=== PATIENT | female | born 1970 | race Two or more races ===

== ENCOUNTER → 2022-04-24 | Outpatient (CLI) | payer OTHER ==
[2022-04-24 11:36] LABS: INR 1.04 (0.9-1.15); Partial Thromboplastin Time 29.9 sec (24.6-33.4)
[2022-04-24 11:40] LABS: Basophils % (auto) 0.6 % (0.0-2.0); Hemoglobin 14.2 g/dL (12.2-16.2); Lymphocytes # (auto) 2.5 10 ^3/uL (0.4-5.4); Mean Corpuscular Hgb Conc. 34.3 g/dL (32.0-36.0); Monocytes # (auto) 0.7 10 ^3/uL (0-1.3); Red Blood Cells 4.16 10^6/uL (4.0-5.20)
[2022-04-24 11:42] LABS: Basophils # (auto) 0 10 ^3/uL (0-0.2); Eosinophils # (auto) 0.3 10 ^3/uL (0-0.8); Eosinophils % (auto) 3.1 % (0.0-7.0); Hematocrit 41.4 % (36.0-46.0); Lymphocytes % (auto) 31.2 % (10.0-50.0); Mean Corpuscular Hemoglobin 34.1 pg (28.0-32.0); Mean Corpuscular Volume 99.6 fL (80.0-100.0); Monocytes % (auto) 9.1 % (0.0-12.0); Neutrophils # (auto) 4.5 10 ^3/uL (1.6-8.6); Nucleated Red Blood Cells % 0.1 %; Red Cell Distribution Width 12.7 % (11.8-14.3)
[2022-04-24 11:46] LABS: Magnesium 2.1 mg/dL (1.6-2.6); Potassium 4.4 mmol/L (3.5-5.1)
[2022-04-24 11:55] LABS: Albumin 3.8 g/dL (3.4-5.0); BUN/Creatinine Ratio 21.8 (10.0-20.0); Bilirubin, Direct 0.1 mg/dL (0-0.2); Bilirubin, Total 0.4 mg/dL (0.2-1.0); Calcium 9.1 mg/dL (8.5-10.1); Total Protein 7.5 g/dL (6.4-8.2)
== END | disposition home or self-care (01) ==
LOC: LAB 09:25
PROVIDERS: ATTEND Internal Medicine
DX: I10 Essential (primary) hypertension (principal); E78.5 Hyperlipidemia, unspecified; E11.8 Type 2 diabetes mellitus with unspecified complications; R94.5 Abnormal results of liver function studies; D64.9 Anemia, unspecified; E03.9 Hypothyroidism, unspecified; R79.89 Other specified abnormal findings of blood chemistry; R68.89 Other general symptoms and signs; E61.2 Magnesium deficiency; E78.49 Other hyperlipidemia; R94.6 Abnormal results of thyroid function studies; R82.998 Other abnormal findings in urine; E55.9 Vitamin D deficiency, unspecified; R82.79 Other abnormal findings on microbiological examination of urine; D51.9 Vitamin B12 deficiency anemia, unspecified; R82.90 Unspecified abnormal findings in urine
CPT/HCPCS: 36415; 80053; 80061; 80076; 82150; 82607; 83036; 83735; 83880; 84443; 85025; 85610; 85730

== ENCOUNTER → 2022-09-08 | Outpatient (CLI) | payer OTHER ==
[2022-09-08 08:36] LABS: Urine Bacteria FEW /hpf (None Seen); Urine Blood Negative /uL (Negative); Urine Specific Gravity 1.009 (1.001-1.035); Urine WBC 2 /hpf (0 - 5)
[2022-09-08 08:40] LABS: Basophils # (auto) 0 10 ^3/uL (0-0.2); Basophils % (auto) 0.5 % (0.0-2.0); Eosinophils # (auto) 0.3 10 ^3/uL (0-0.8); Eosinophils % (auto) 4.2 % (0.0-7.0); Hemoglobin 15.4 g/dL (12.2-16.2); Lymphocytes # (auto) 2.2 10 ^3/uL (0.4-5.4); Lymphocytes % (auto) 27.8 % (10.0-50.0); Mean Corpuscular Hemoglobin 33.8 pg (28.0-32.0); Mean Corpuscular Hgb Conc. 34.3 g/dL (32.0-36.0); Mean Corpuscular Volume 98.8 fL (80.0-100.0); Monocytes # (auto) 0.7 10 ^3/uL (0-1.3); Monocytes % (auto) 9.4 % (0.0-12.0); Neutrophils # (auto) 4.6 10 ^3/uL (1.6-8.6); Neutrophils % (auto) 58.1 % (37.0-80.0); Nucleated Red Blood Cells % 0.1 %; Red Blood Cells 4.56 10^6/uL (4.0-5.20); Red Cell Distribution Width 12.8 % (11.8-14.3); White Blood Cell 7.9 10^3/uL (4.4-10.8)
[2022-09-08 09:08] LABS: Folate (Folic Acid) 19.49 ng/mL (5.38-24)
[2022-09-08 09:15] LABS: Potassium 4.7 mmol/L (3.5-5.1)
[2022-09-08 09:23] LABS: Albumin 3.7 g/dL (3.4-5.0); BUN/Creatinine Ratio 14.3 (10.0-20.0); Bilirubin, Direct 0.1 mg/dL (0-0.2); Bilirubin, Total 0.3 mg/dL (0.2-1.0); Total Protein 7.4 g/dL (6.4-8.2)
== END | disposition home or self-care (01) ==
LOC: LAB 08:01
PROVIDERS: ATTEND Specialist
DX: I10 Essential (primary) hypertension (principal); R94.5 Abnormal results of liver function studies; D64.9 Anemia, unspecified; E78.5 Hyperlipidemia, unspecified; E11.8 Type 2 diabetes mellitus with unspecified complications; E03.9 Hypothyroidism, unspecified; E78.41 Elevated Lipoprotein(a); R68.89 Other general symptoms and signs; E61.2 Magnesium deficiency; R94.6 Abnormal results of thyroid function studies; E55.9 Vitamin D deficiency, unspecified; D51.9 Vitamin B12 deficiency anemia, unspecified; R82.991 Hypocitraturia; R82.90 Unspecified abnormal findings in urine; R82.79 Other abnormal findings on microbiological examination of urine
CPT/HCPCS: 36415; 80053; 80061; 80076; 81001; 82306; 82607; 82746; 83036; 83735; 84443; 84550; 85025; 87086

== ENCOUNTER → 2023-01-04 | Outpatient (CLI) | payer OTHER ==
[2023-01-04 08:26] LABS: Basophils # (auto) 0.1 10 ^3/uL (0-0.2); Basophils % (auto) 1.2 % (0.0-2.0); Eosinophils # (auto) 0.3 10 ^3/uL (0-0.8); Eosinophils % (auto) 4.5 % (0.0-7.0); Hematocrit 47.3 % (36.0-46.0); Hemoglobin 16.1 g/dL (12.2-16.2); Lymphocytes # (auto) 2.3 10 ^3/uL (0.4-5.4); Lymphocytes % (auto) 32.8 % (10.0-50.0); Mean Corpuscular Hemoglobin 33.2 pg (28.0-32.0); Mean Corpuscular Hgb Conc. 34.1 g/dL (32.0-36.0); Mean Corpuscular Volume 97.3 fL (80.0-100.0); Monocytes # (auto) 0.6 10 ^3/uL (0-1.3); Monocytes % (auto) 8.3 % (0.0-12.0); Neutrophils # (auto) 3.7 10 ^3/uL (1.6-8.6); Neutrophils % (auto) 53.2 % (37.0-80.0); Nucleated Red Blood Cells % 0.1 %; Red Blood Cells 4.86 10^6/uL (4.0-5.20); Red Cell Distribution Width 13.1 % (11.8-14.3); White Blood Cell 6.9 10^3/uL (4.4-10.8)
[2023-01-04 08:37] LABS: Urine Bacteria FEW /hpf (None Seen); Urine Blood Negative /uL (Negative); Urine Clarity Clear (Clear); Urine Color Yellow (Yellow); Urine Protein, UAD Negative (Negative); Urine Specific Gravity 1.035 (1.001-1.035); Urine Urobilinogen Normal (Negative); Urine WBC 3 /hpf (0 - 5)
[2023-01-04 09:46] LABS: Alanine Aminotransferase 39 U/L (7-40); Albumin 4.6 g/dL (3.2-4.8); Alkaline Phosphatase 153 U/L (46-116); Anion Gap 8 (5-15); Aspartate Aminotransferase 80 U/L (13-40); BUN/Creatinine Ratio 15.5 (10.0-20.0); Bilirubin, Direct 0.3 mg/dL (<0.3); Blood Urea Nitrogen 17 mg/dL (9-23); Calcium 9.7 mg/dL (8.5-10.1); Carbon Dioxide 25 mmol/L (20-30); Chloride 99 mmol/L (98-107); Cholesterol 128 mg/dL (< 200); Glucose 330 mg/dL (74-106); HDL Cholesterol 42 mg/dL (40-59); LDL Cholesterol 38 mg/dL (< 100); Potassium 4.1 mmol/L (3.5-5.1); Sodium 132 mmol/L (136-145); Triglycerides 246 mg/dL (< 150)
[2023-01-04 09:47] LABS: Bilirubin, Total 0.6 mg/dL (0.2-1.0); Total Protein 7.4 g/dL (5.7-8.2)
[2023-01-04 13:43] LABS: Folate (Folic Acid) 12.68 ng/mL (>5.38)
[2023-01-04 13:49] LABS: Uric Acid 2.5 mg/dL (3.1-7.8)
[2023-01-04 13:59] LABS: Magnesium 1.8 mg/dL (1.6-2.6)
== END | disposition home or self-care (01) ==
LOC: LAB 07:57
PROVIDERS: ATTEND Internal Medicine
DX: I10 Essential (primary) hypertension (principal); E78.9 Disorder of lipoprotein metabolism, unspecified; R78.89 Finding of other specified substances, not normally found in blood; M83.9 Adult osteomalacia, unspecified; E11.8 Type 2 diabetes mellitus with unspecified complications; E03.9 Hypothyroidism, unspecified; E78.5 Hyperlipidemia, unspecified; R94.5 Abnormal results of liver function studies; E83.40 Disorders of magnesium metabolism, unspecified
CPT/HCPCS: 36415; 80053; 80061; 80076; 81001; 82306; 82607; 82746; 83036; 83735; 84443; 84550; 85025; 87086

== ENCOUNTER → 2023-01-26 | Outpatient (CLI) | payer OTHER ==
[2023-01-26 08:13] LABS: Basophils # (auto) 0.1 10 ^3/uL (0-0.2); Basophils % (auto) 0.8 % (0.0-2.0); Eosinophils # (auto) 0.2 10 ^3/uL (0-0.8); Eosinophils % (auto) 3.8 % (0.0-7.0); Hematocrit 46.3 % (36.0-46.0); Hemoglobin 16.1 g/dL (12.2-16.2); Lymphocytes # (auto) 2.3 10 ^3/uL (0.4-5.4); Lymphocytes % (auto) 39.3 % (10.0-50.0); Mean Corpuscular Hemoglobin 33.6 pg (28.0-32.0); Mean Corpuscular Hgb Conc. 34.8 g/dL (32.0-36.0); Mean Corpuscular Volume 96.6 fL (80.0-100.0); Monocytes # (auto) 0.5 10 ^3/uL (0-1.3); Monocytes % (auto) 8.5 % (0.0-12.0); Neutrophils # (auto) 2.8 10 ^3/uL (1.6-8.6); Neutrophils % (auto) 47.6 % (37.0-80.0); Nucleated Red Blood Cells % 0.1 %; Red Blood Cells 4.79 10^6/uL (4.0-5.20); Red Cell Distribution Width 12.6 % (11.8-14.3); White Blood Cell 5.9 10^3/uL (4.4-10.8)
[2023-01-26 08:17] LABS: Urine Bacteria FEW /hpf (None Seen); Urine Blood Negative /uL (Negative); Urine Clarity Clear (Clear); Urine Color Colorless (Yellow); Urine Mucus FEW (None Seen); Urine Protein, UAD Negative (Negative); Urine Urobilinogen Normal (Negative); Urine WBC 4 /hpf (0 - 5); Urine pH 6.5 (5.0-8.0)
[2023-01-26 08:35] LABS: Alanine Aminotransferase 36 U/L (7-40); Albumin 4.3 g/dL (3.2-4.8); Alkaline Phosphatase 136 U/L (46-116); Anion Gap 11 (5-15); Aspartate Aminotransferase 70 U/L (13-40); BUN/Creatinine Ratio 9.8 (10.0-20.0); Blood Urea Nitrogen 10 mg/dL (9-23); Calcium 9.4 mg/dL (8.5-10.1); Carbon Dioxide 21 mmol/L (20-30); Chloride 101 mmol/L (98-107); Glucose 387 mg/dL (74-106); LDL Cholesterol 34 mg/dL (< 100); Potassium 4.2 mmol/L (3.5-5.1); Sodium 133 mmol/L (136-145); Triglycerides 286 mg/dL (< 150)
[2023-01-26 08:36] LABS: Bilirubin, Total 0.6 mg/dL (0.2-1.0); Cholesterol 122 mg/dL (< 200); HDL Cholesterol 39 mg/dL (40-59); Total Protein 7.1 g/dL (5.7-8.2)
[2023-01-26 08:47] LABS: Magnesium 1.9 mg/dL (1.6-2.6); Uric Acid 2.6 mg/dL (3.1-7.8)
[2023-01-26 08:58] LABS: Folate (Folic Acid) 16.97 ng/mL (>5.38)
== END | disposition home or self-care (01) ==
LOC: LAB 07:51
PROVIDERS: ATTEND Internal Medicine
DX: E61.2 Magnesium deficiency (principal); E79.0 Hyperuricemia without signs of inflammatory arthritis and tophaceous disease; R94.6 Abnormal results of thyroid function studies; R82.998 Other abnormal findings in urine; E55.9 Vitamin D deficiency, unspecified; R82.79 Other abnormal findings on microbiological examination of urine; D51.9 Vitamin B12 deficiency anemia, unspecified; R78.89 Finding of other specified substances, not normally found in blood; R68.89 Other general symptoms and signs; E78.49 Other hyperlipidemia; R73.09 Other abnormal glucose
CPT/HCPCS: 36415; 80053; 80061; 81001; 82306; 82607; 82746; 83036; 83735; 84443; 84550; 85025; 87086

== ENCOUNTER → 2023-04-04 | Outpatient (CLI) | payer OTHER ==
[2023-04-04 08:04] LABS: Basophils # (auto) 0.1 10 ^3/uL (0-0.2); Basophils % (auto) 0.6 % (0.0-2.0); Eosinophils # (auto) 0.3 10 ^3/uL (0-0.8); Eosinophils % (auto) 3.6 % (0.0-7.0); Hematocrit 46.2 % (36.0-46.0); Hemoglobin 15.6 g/dL (12.2-16.2); Lymphocytes # (auto) 2.8 10 ^3/uL (0.4-5.4); Lymphocytes % (auto) 32.9 % (10.0-50.0); Mean Corpuscular Hemoglobin 33.4 pg (28.0-32.0); Mean Corpuscular Hgb Conc. 33.9 g/dL (32.0-36.0); Mean Corpuscular Volume 98.8 fL (80.0-100.0); Monocytes # (auto) 0.7 10 ^3/uL (0-1.3); Monocytes % (auto) 8.2 % (0.0-12.0); Neutrophils # (auto) 4.6 10 ^3/uL (1.6-8.6); Neutrophils % (auto) 54.7 % (37.0-80.0); Red Blood Cells 4.67 10^6/uL (4.0-5.20); Red Cell Distribution Width 12.6 % (11.8-14.3); Urine Bacteria NONE SEEN /hpf (None Seen); Urine Blood Negative /uL (Negative); Urine Clarity Clear (Clear); Urine Color Colorless (Yellow); Urine Protein, UAD Negative (Negative); Urine Specific Gravity 1.008 (1.001-1.035); Urine Urobilinogen Normal (Negative); Urine WBC 1 /hpf (0 - 5); Urine pH 6.5 (5.0-8.0); White Blood Cell 8.4 10^3/uL (4.4-10.8)
[2023-04-04 08:29] LABS: Alanine Aminotransferase 36 U/L (7-40); Albumin 4.6 g/dL (3.2-4.8); Alkaline Phosphatase 95 U/L (46-116); Anion Gap 5 (5-15); Aspartate Aminotransferase 60 U/L (13-40); BUN/Creatinine Ratio 13.1 (10.0-20.0); Blood Urea Nitrogen 13 mg/dL (9-23); Carbon Dioxide 27 mmol/L (20-30); Chloride 109 mmol/L (98-107); Glucose 106 mg/dL (74-106); LDL Cholesterol 31 mg/dL (< 100); Potassium 4.5 mmol/L (3.5-5.1); Sodium 141 mmol/L (136-145); Triglycerides 124 mg/dL (< 150)
[2023-04-04 08:30] LABS: Bilirubin, Total 0.4 mg/dL (0.2-1.0); Cholesterol 113 mg/dL (< 200); HDL Cholesterol 49 mg/dL (40-59); Total Protein 7.6 g/dL (5.7-8.2)
[2023-04-04 09:12] LABS: Uric Acid 3.6 mg/dL (3.1-7.8)
[2023-04-04 09:14] LABS: Magnesium 1.8 mg/dL (1.6-2.6)
[2023-04-04 09:28] LABS: Folate (Folic Acid) 18.89 ng/mL (>5.38)
== END | disposition home or self-care (01) ==
LOC: LAB 07:42
PROVIDERS: ATTEND Internal Medicine
DX: R78.89 Finding of other specified substances, not normally found in blood (principal); E78.9 Disorder of lipoprotein metabolism, unspecified; R68.89 Other general symptoms and signs; R73.09 Other abnormal glucose; E61.2 Magnesium deficiency; E79.0 Hyperuricemia without signs of inflammatory arthritis and tophaceous disease; R82.90 Unspecified abnormal findings in urine; D51.9 Vitamin B12 deficiency anemia, unspecified; E85.9 Amyloidosis, unspecified
CPT/HCPCS: 36415; 80053; 80061; 81001; 82306; 82607; 82746; 83036; 83735; 84443; 84550; 85025; 87086

== ENCOUNTER → 2023-10-19 | Outpatient (CLI) | payer OTHER ==
[2023-10-19 08:12] LABS: Urine Bacteria None Seen /hpf (None Seen)
[2023-10-19 08:26] LABS: Basophils # (auto) 0 10 ^3/uL (0-0.2); Basophils % (auto) 0.6 % (0.0-2.0); Eosinophils # (auto) 0.3 10 ^3/uL (0-0.8); Eosinophils % (auto) 4.8 % (0.0-7.0); Hemoglobin 14.9 g/dL (12.2-16.2); Lymphocytes # (auto) 2.1 10 ^3/uL (0.4-5.4); Lymphocytes % (auto) 33.6 % (10.0-50.0); Mean Corpuscular Hemoglobin 33.9 pg (28.0-32.0); Mean Corpuscular Hgb Conc. 34.8 g/dL (32.0-36.0); Mean Corpuscular Volume 97.5 fL (80.0-100.0); Monocytes # (auto) 0.6 10 ^3/uL (0-1.3); Monocytes % (auto) 9.7 % (0.0-12.0); Neutrophils # (auto) 3.3 10 ^3/uL (1.6-8.6); Neutrophils % (auto) 51.3 % (37.0-80.0); Nucleated Red Blood Cells % 0.1 %; Platelet Count (auto) 263 10^3/uL (140-450); Red Blood Cells 4.41 10^6/uL (4.0-5.20); White Blood Cell 6.4 10^3/uL (4.4-10.8)
[2023-10-19 08:29] LABS: Urine Blood Negative /uL (Negative); Urine Clarity Clear (Clear); Urine Color Light-Yellow (Yellow); Urine Protein, UAD Negative (Negative); Urine Specific Gravity 1.011 (1.001-1.035); Urine Urobilinogen Normal (Negative); Urine WBC 1 /hpf (0 - 5)
[2023-10-19 08:45] LABS: Alanine Aminotransferase 35 U/L (7-40); Albumin 4.7 g/dL (3.2-4.8); Alkaline Phosphatase 69 U/L (46-116); Anion Gap 5 (5-15); Aspartate Aminotransferase 76 U/L (13-40); BUN/Creatinine Ratio 15.4 (10.0-20.0); Blood Urea Nitrogen 16 mg/dL (9-23); Carbon Dioxide 27 mmol/L (20-30); Chloride 109 mmol/L (98-107); Cholesterol 131 mg/dL (< 200); Glucose 107 mg/dL (74-106); LDL Cholesterol 39 mg/dL (< 100); Magnesium 1.9 mg/dL (1.6-2.6); Potassium 4.5 mmol/L (3.5-5.1); Sodium 141 mmol/L (136-145); Total Protein 7.3 g/dL (5.7-8.2); Triglycerides 179 mg/dL (< 150)
[2023-10-19 08:46] LABS: Bilirubin, Direct 0.2 mg/dL (<0.3); Bilirubin, Total 0.4 mg/dL (0.2-1.0); HDL Cholesterol 47 mg/dL (40-59)
[2023-10-19 09:23] LABS: Uric Acid 3.9 mg/dL (3.1-7.8)
[2023-10-19 10:55] LABS: Folate (Folic Acid) 13.01 ng/mL (>5.38)
== END | disposition home or self-care (01) ==
LOC: LAB 07:53
PROVIDERS: ATTEND Specialist
DX: E11.9 Type 2 diabetes mellitus without complications (principal); I10 Essential (primary) hypertension; E03.9 Hypothyroidism, unspecified; D64.9 Anemia, unspecified; E78.5 Hyperlipidemia, unspecified; R68.89 Other general symptoms and signs; E55.9 Vitamin D deficiency, unspecified; Z68.36 Body mass index [BMI] 36.0-36.9, adult
CPT/HCPCS: 36415; 80053; 80061; 81001; 82248; 82306; 82607; 82746; 83036; 83735; 83880; 84443; 84550; 85025; 87086

== ENCOUNTER → 2023-11-23 | Outpatient (CLI) | payer OTHER | END | disposition home or self-care (01) | LOC: LAB 08:15 | PROVIDERS: ATTEND Internal Medicine | DX: I12.9 Hypertensive chronic kidney disease with stage 1 through stage 4 chronic kidney disease, or unspecified chronic kidney disease (principal); N18.31 Chronic kidney disease, stage 3a; D68.69 Other thrombophilia; I49.9 Cardiac arrhythmia, unspecified; Z95.0 Presence of cardiac pacemaker; R74.8 Abnormal levels of other serum enzymes; I25.10 Atherosclerotic heart disease of native coronary artery without angina pectoris; E11.65 Type 2 diabetes mellitus with hyperglycemia; E55.9 Vitamin D deficiency, unspecified; R82.90 Unspecified abnormal findings in urine | CPT/HCPCS: 82306; 87086 ==

== ENCOUNTER → 2023-11-23 | Outpatient (CLI) | payer OTHER ==
[2023-11-23 10:13] LABS: Basophils # (auto) 0.1 10 ^3/uL (0-0.2); Basophils % (auto) 0.9 % (0.0-2.0); Eosinophils # (auto) 0.4 10 ^3/uL (0-0.8); Eosinophils % (auto) 4.7 % (0.0-7.0); Hematocrit 41.3 % (36.0-46.0); Hemoglobin 14.1 g/dL (12.2-16.2); Lymphocytes # (auto) 2.7 10 ^3/uL (0.4-5.4); Lymphocytes % (auto) 36.2 % (10.0-50.0); Mean Corpuscular Hemoglobin 33.8 pg (28.0-32.0); Mean Corpuscular Hgb Conc. 34.2 g/dL (32.0-36.0); Mean Corpuscular Volume 98.9 fL (80.0-100.0); Monocytes # (auto) 0.7 10 ^3/uL (0-1.3); Monocytes % (auto) 8.8 % (0.0-12.0); Neutrophils # (auto) 3.7 10 ^3/uL (1.6-8.6); Neutrophils % (auto) 49.4 % (37.0-80.0); Nucleated Red Blood Cells % 0.1 %; Platelet Count (auto) 256 10^3/uL (140-450); Red Blood Cells 4.17 10^6/uL (4.0-5.20); Red Cell Distribution Width 13.3 % (11.8-14.3); White Blood Cell 7.5 10^3/uL (4.4-10.8)
[2023-11-23 11:08] LABS: Alanine Aminotransferase 29 U/L (7-40); Albumin 4.3 g/dL (3.2-4.8); Alkaline Phosphatase 72 U/L (46-116); Anion Gap 3 (5-15); Aspartate Aminotransferase 60 U/L (13-40); BUN/Creatinine Ratio 14.3 (10.0-20.0); Bilirubin, Total 0.4 mg/dL (0.2-1.0); Blood Urea Nitrogen 14 mg/dL (9-23); Calcium 9.6 mg/dL (8.7-10.4); Carbon Dioxide 29 mmol/L (20-31); Chloride 110 mmol/L (98-107); Cholesterol 126 mg/dL (< 200); Glucose 99 mg/dL (74-106); HDL Cholesterol 43 mg/dL (40-59); LDL Cholesterol 38 mg/dL (< 100); Potassium 4.6 mmol/L (3.5-5.1); Sodium 142 mmol/L (136-145); Total Protein 6.9 g/dL (5.7-8.2); Triglycerides 213 mg/dL (< 150)
[2023-11-23 11:16] LABS: Folate (Folic Acid) 14.45 ng/mL (>5.38)
[2023-11-23 11:22] LABS: Uric Acid 4.1 mg/dL (3.1-7.8); Urine Bacteria FEW /hpf (None Seen); Urine Blood Negative /uL (Negative); Urine Clarity Clear (Clear); Urine Color Light-Yellow (Yellow); Urine Protein, UAD Negative (Negative); Urine Specific Gravity 1.014 (1.001-1.035); Urine Urobilinogen Normal (Negative); Urine WBC 4 /hpf (0 - 5)
== END | disposition home or self-care (01) ==
LOC: LAB 09:39
PROVIDERS: ATTEND Internal Medicine
DX: E78.49 Other hyperlipidemia (principal); R79.89 Other specified abnormal findings of blood chemistry; R68.89 Other general symptoms and signs; R73.09 Other abnormal glucose; E61.2 Magnesium deficiency; R94.6 Abnormal results of thyroid function studies; E79.0 Hyperuricemia without signs of inflammatory arthritis and tophaceous disease; E55.9 Vitamin D deficiency, unspecified; R82.90 Unspecified abnormal findings in urine; R82.79 Other abnormal findings on microbiological examination of urine
CPT/HCPCS: 36415; 80053; 80061; 81001; 82607; 82746; 83036; 84443; 84550; 85025

== ENCOUNTER → 2023-12-04 | Outpatient (CLI) | payer OTHER ==
--- NOTE | 2023-12-04 13:08 | DVHSR ---
APPROVED REPORT EXAM: Two-dimensional and M-mode echocardiogram with Doppler and color Doppler. INDICATION Dyspnea Surgery/Intervention Pacemaker: RISK FACTORS Obesity: Height: 66, Weight: 232 Diabetes Smoking: DIMENSIONS LVDd (3.8-5.7cm)LA (2D)4.3 (1.9-4.0cm)Aortic Root3.0 (2.0-3.7cm) LVDs (2.5-4.0cm)LA (MM) (1.9-4.0cm)Aortic Cusp Exc1.5 (1.5-2.0cm) EF (%) 49.0 (55-70%)Rt. Atrium3.6 (1.9-4.0cm)Asc. Aorta2.8 cm Mitral Valve MitralMitral Stenosis E wave0.59m/sMV Mean GR.mmHg A wave0.79m/sMV Peak GR.87mmHg E/A ratio0.72D MVAcm2 DECEL [id number] 1/2 Timems Aortic Valve Aortic ValveAortic Stenosis V10.99m/Johann Mean GR.4mmHg V21.29m/Johann Peak GR.7mmHg LVOT Diameter2.1 (1.8-2.4cm)Doppler AVA2.66cm2 Pulmonic Valve V20.85m/s Tricuspid Valve TR Velocity2.47m/s [id number] Conclusion Normal left ventricular size and dimension. Normal left ventricular systolic function estimated ejec tion fraction 55%. There is a grade 1 diastolic dysfunction. Normal right ventricular size and dimension. Normal left ventricular systolic function. The pacemak er lead is seen in the right ventricular cavity. Normal biatrial size and dimension. Normal aortic valve structure and function. Normal mitral valve structure and function. Normal tricuspid valve structure and function. Pulmonary valve is grossly normal. No pericardial effusion.
== END | disposition home or self-care (01) ==
LOC: XYW 09:44
PROVIDERS: ATTEND Specialist
DX: I51.89 Other ill-defined heart diseases (principal); R06.02 Shortness of breath; Z95.810 Presence of automatic (implantable) cardiac defibrillator
CPT/HCPCS: 93306

== ENCOUNTER → 2023-12-10 | Outpatient (CLI) | payer OTHER ==
[2023-12-10 08:21] LABS: Basophils # (auto) 0 10 ^3/uL (0-0.2); Basophils % (auto) 0.7 % (0.0-2.0); Eosinophils # (auto) 0.3 10 ^3/uL (0-0.8); Hematocrit 42.1 % (36.0-46.0); Hemoglobin 14.2 g/dL (12.2-16.2); Lymphocytes # (auto) 2.2 10 ^3/uL (0.4-5.4); Lymphocytes % (auto) 39.2 % (10.0-50.0); Mean Corpuscular Hemoglobin 33.7 pg (28.0-32.0); Mean Corpuscular Hgb Conc. 33.8 g/dL (32.0-36.0); Mean Corpuscular Volume 99.6 fL (80.0-100.0); Monocytes # (auto) 0.4 10 ^3/uL (0-1.3); Monocytes % (auto) 7.6 % (0.0-12.0); Neutrophils # (auto) 2.6 10 ^3/uL (1.6-8.6); Neutrophils % (auto) 46.5 % (37.0-80.0); Nucleated Red Blood Cells % 0.1 %; Platelet Count (auto) 252 10^3/uL (140-450); Red Blood Cells 4.22 10^6/uL (4.0-5.20); Red Cell Distribution Width 13.5 % (11.8-14.3); White Blood Cell 5.6 10^3/uL (4.4-10.8)
[2023-12-10 09:36] LABS: Alanine Aminotransferase 33 U/L (7-40); Albumin 4.2 g/dL (3.2-4.8); Alkaline Phosphatase 79 U/L (46-116); Anion Gap 5 (5-15); Aspartate Aminotransferase 63 U/L (13-40); BUN/Creatinine Ratio 17.3 (10.0-20.0); Blood Urea Nitrogen 18 mg/dL (9-23); Calcium 9.6 mg/dL (8.7-10.4); Carbon Dioxide 28 mmol/L (20-31); Chloride 108 mmol/L (98-107); Glucose 164 mg/dL (74-106); LDL Cholesterol 28 mg/dL (< 100); Magnesium 1.9 mg/dL (1.6-2.6); Potassium 4.5 mmol/L (3.5-5.1); Sodium 141 mmol/L (136-145); Triglycerides 161 mg/dL (< 150)
[2023-12-10 09:37] LABS: Bilirubin, Total 0.3 mg/dL (0.2-1.0); Cholesterol 112 mg/dL (< 200); HDL Cholesterol 48 mg/dL (40-59); Total Protein 6.9 g/dL (5.7-8.2)
[2023-12-10 10:21] LABS: Uric Acid 3.8 mg/dL (3.1-7.8)
[2023-12-10 10:54] LABS: Folate (Folic Acid) 16.18 ng/mL (>5.38)
== END | disposition home or self-care (01) ==
LOC: LAB 07:46
PROVIDERS: ATTEND Internal Medicine
DX: I10 Essential (primary) hypertension (principal); R10.30 Lower abdominal pain, unspecified; E55.9 Vitamin D deficiency, unspecified; R74.8 Abnormal levels of other serum enzymes
CPT/HCPCS: 36415; 80053; 80061; 82306; 82607; 82746; 83036; 83735; 84443; 84550; 85025

== ENCOUNTER → 2024-01-22 | Outpatient (CLI) | payer OTHER ==
[~2024-01-22] VITALS: Ht 167.6 cm; Wt 105.2 kg
[2024-01-22] MEDS: REGADENOSON 0.4 MG/5 ML SYRG IV ONE ×2 (08:15→09:19)
--- NOTE | 2024-01-22 14:26 | DVHSR ---
APPROVED REPORT Exam: Nuclear Stress Test Indication: CHF BMI: 0 Medical History Medical History: CHF, HTN, CURRENT SMOKER Stress Test Details Stress Test: Pharmacologic stress testing performed using 0.4 mg of regadenoson per 5 mL given IV ov er 10 seconds. HR Resting HR: 76 bpmMax Heart Rate (APMHR): 168.855511 bpm Max HR Achieved: 109 bpmTarget HR (85% APMHR): 142.088127 bpm % of APMHR: 64.88 Recovery HR: 99 bpm BP Resting BP: 136/77 mmHg Recovery BP: 136/80 mmHg ECG Resting ECG: SEE BASELINE Clinical Reason for Termination: Completed protocol Stress ECG Conclusion ECG shows wide QRS complex with a ventricularly paced rhythm. No dynamic EKG changes was noted as EK G is nondiagnostic. Resting images shows mildly reduced uptake of radioactive tracer through the anterior and anterosepta l wall this could be related to underlying conduction abnormalities due to pacing. Stress images still shows the same area of the anterior anteroseptal wall reduced radioactive uptake which is in keeping with either ischemia versus artifact due to conduction abnormality. Mildly reduced left ventricular systolic function 47%. Impression: Anterior anteroseptal wall defect seen both on resting and stress images which could be related to pacing and conduction abnormality, mildly reduced left ventricular systolic function at 47 %, low risk study. NM EXAM: Myocardial Perfusion REST/STRESS Imaging Protocol: Rest Tc-99m/Stress Tc-99m 1 day Resting Data Rest SPECT myocardial perfusion imaging was performed in supine position 60 minutes following the int ravenous injection of 16 mCi of Tc-99m Sestamibi. Time of rest injection: 0810 Time of rest imagin Administration Route: IV Administration Site: Right Hand Pharmacologic Stress Pharmacologic stress test was performed by injecting Regadenoson 0.4 mg IV push followed by the intra venous injection of 33 mCi of Tc-99m Sestamibi. Time of stress injection: 09 Time of stress imagin Administration Route: IV Administration Site: Right Hand Gated Stress SPECT was performed 60 minutes after stress injection. The images were gated to evaluate regional wall motion and calculate left ventricular ejection fracti on. Stress only was performed in the Supine position. Nuclear Conclusion ECG Findings: non-diagnostic Clinical Findings: negative for ischemia Nuclear Findings: equivocal Exercise Capacity: not assessed Left Ventricular Function: abnormal Risk Study: moderate ECG shows wide QRS complex with a ventricularly paced rhythm. No dynamic EKG changes was noted as EK G is nondiagnostic. Resting images shows mildly reduced uptake of radioactive tracer through the anterior and anterosepta l wall this could be related to underlying conduction abnormalities due to pacing. Stress images still shows the same area of the anterior anteroseptal wall reduced radioactive uptake which is in keeping with either ischemia versus artifact due to conduction abnormality. Mildly reduced left ventricular systolic function 47%. Impression: Anterior anteroseptal wall defect seen both on resting and stress images which could be related to pacing and conduction abnormality, mildly reduced left ventricular systolic function at 47 %, low risk study.
== END | disposition home or self-care (01) ==
LOC: XYW 07:50
PROVIDERS: ATTEND Specialist
DX: I11.0 Hypertensive heart disease with heart failure (principal); I50.9 Heart failure, unspecified; Z87.891 Personal history of nicotine dependence
CPT/HCPCS: 78452; 93017; A9500; J2785

== ENCOUNTER → 2024-03-10 | Outpatient (CLI) | payer OTHER ==
[2024-03-10 08:42] LABS: Basophils # (auto) 0 10 ^3/uL (0-0.2); Basophils % (auto) 0.2 % (0.0-2.0); Eosinophils # (auto) 0.1 10 ^3/uL (0-0.8); Eosinophils % (auto) 0.8 % (0.0-7.0); Hematocrit 41.1 % (36.0-46.0); Hemoglobin 13.7 g/dL (12.2-16.2); Lymphocytes # (auto) 2.6 10 ^3/uL (0.4-5.4); Lymphocytes % (auto) 23.1 % (10.0-50.0); Mean Corpuscular Hemoglobin 32.9 pg (28.0-32.0); Mean Corpuscular Hgb Conc. 33.3 g/dL (32.0-36.0); Mean Corpuscular Volume 98.8 fL (80.0-100.0); Monocytes # (auto) 0.8 10 ^3/uL (0-1.3); Monocytes % (auto) 7.4 % (0.0-12.0); Neutrophils # (auto) 7.8 10 ^3/uL (1.6-8.6); Neutrophils % (auto) 68.5 % (37.0-80.0); Platelet Count (auto) 410 10^3/uL (140-450); Red Blood Cells 4.16 10^6/uL (4.0-5.20); Red Cell Distribution Width 12.6 % (11.8-14.3); White Blood Cell 11.3 10^3/uL (4.4-10.8)
[2024-03-10 09:40] LABS: Alanine Aminotransferase 17 U/L (7-40); Albumin 4.3 g/dL (3.2-4.8); Alkaline Phosphatase 98 U/L (46-116); Anion Gap 8 (5-15); BUN/Creatinine Ratio 22.9 (10.0-20.0); Bilirubin, Total 0.3 mg/dL (0.2-1.0); Calcium 9.7 mg/dL (8.7-10.4); Carbon Dioxide 27 mmol/L (20-31); Cholesterol 75 mg/dL (< 200); Glucose 98 mg/dL (74-106); HDL Cholesterol 45 mg/dL (40-59); LDL Cholesterol 13 mg/dL (< 100); Potassium 3.6 mmol/L (3.5-5.1); Sodium 143 mmol/L (136-145); Total Protein 7.2 g/dL (5.7-8.2); Triglycerides 64 mg/dL (< 150)
[2024-03-10 09:51] LABS: Aspartate Aminotransferase 48 U/L (13-40); Blood Urea Nitrogen 25 mg/dL (9-23); Chloride 108 mmol/L (98-107)
[2024-03-10 10:45] LABS: Uric Acid 4.4 mg/dL (3.1-7.8)
[2024-03-10 11:32] LABS: Folate (Folic Acid) 8.1 ng/mL (>5.38)
== END | disposition home or self-care (01) ==
LOC: LAB 07:09
PROVIDERS: ATTEND Internal Medicine
DX: I11.0 Hypertensive heart disease with heart failure (principal); I50.22 Chronic systolic (congestive) heart failure; M51.9 Unspecified thoracic, thoracolumbar and lumbosacral intervertebral disc disorder; F33.0 Major depressive disorder, recurrent, mild
CPT/HCPCS: 36415; 80053; 80061; 82306; 82607; 82746; 83036; 83735; 84443; 84550; 85025; 87086; 87088; 87186

== ENCOUNTER 2024-03-19 18:32 | Inpatient (IN) | payer OTHER ==
[~2024-03-19] VITALS: Ht 167.6 cm; Wt 63.5 kg
--- NOTE | 2024-03-19 18:51 | ED.PDOC ---
SOB-HPI HPI Comments 53y F who presents to the ED for chief complaint of shortness of breath. Pt states she has been having shortness of breath for the past 3 weeks. Pt states she has been having cough, congestion getting progressively worse. Pt states she recently went to urgent care and states he was placed on antibiotic and sent home. Pt states she saw PCP recently and states she was placed on another antibiotic. Pt states earlier today, she started to have increased shortness of breath and came to the ED for further evaluation. Pt in the ED, had vitals checked with 02 sat of 77% on air and was placed on 02. Pt denies any recent sick contacts. Pt otherwise denies any other symptoms at this time. 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 Family History Family History: Reviewed,noncontributory to illness Social History Smoker: Non-Smoker Alcohol: Denies ETOH Use Drugs: Denies Drug Use Lives In: Home Constitutional: denies: chills, diaphoresis, fatigue, fever, malaise, sweats, weakness, others EENTM: reports: nose congestion; denies: blurred vision, double vision, ear bleeding, ear discharge, ear drainage, ear pain, ear ringing, eye pain, eye redness, hearing loss, mouth pain, mouth swelling, nasal discharge, nose bleeding, nose pain, photophobia, tearing, throat pain, throat swelling, voice changes, others Respiratory: reports: cough, shortness of breath; denies: hemoptysis, orthopnea, SOB at rest, SOB with excertion, stridor, wheezing, others Cardiovascular: denies: chest pain, dizzy spells, diaphoresis, Dyspnea on exertion, edema, irregular heart beat, left arm pain, lightheadedness, palpitations, PND, syncope, others Gastrointestinal: denies: abdomen distended, abdominal pain, blood streaked bowels, constipated, diarrhea, dysphagia, difficulty swallowing, hematemesis, melena, nausea, poor appetite, poor fluid intake, rectal bleeding, rectal pain, vomiting, others Genitourinary: denies: abnormal vagina bleeding, burning, dyspareunia, dysuria, flank pain, frequency, hematuria, incontinence, pain, , vagina dis charge, urgency, others Neurological: denies: dizziness, fainting, headache, left sided numbness, left sided weakness, numbness, paresthesia, pre-existing deficit, right sided numbness, right sided weakness, seizure, speech problems, tingling, tremors, weakness, others Musculoskeletal: denies: back pain, gout, joint pain, joint swelling, muscle pain, muscle stiffness, neck pain, others Integumetry: denies: bruises, change in color, change in hair/nails, dryness, laceration, lesions, lumps, rash, wounds, others Allergic/Immunocompromised: denies: Difficulty Healing, Frequent Infections, Hives, Itching, others Hematologic/Lymphatic: denies: anemia, blood clots, easy bleeding, easy bruising, swollen glands, others Endocrine: denies: excessive hunger, excessive sweating, excessive thirst, excessive urination, flushing, intolerance to cold, intolerance to heat, unexplained weight gain, unexplained weight loss, others Psychiatric: denies: anxiety, bipolar disorder, depression, hopeless, panic disorder, schizophrenia, sleepless, suicidal, others All Other Systems: Reviewed and Negative Physical Exam General Appearance: Moderate Distress HEENT: Normal ENT Inspection, Pharynx Normal, TMs Normal Neck: Full Range of Motion, Non-Tender, Normal, Normal Inspection Respiratory: Rales (b/l lungs), Rhonchi (b/l lungs) Cardiovascular: No Edema, No JVD, No Murmur, No Gallop, Normal Peripheral Pulses, Regular Rate/Rhythm Breast Exam: Deferred Gastrointestinal: No Organomegaly, Non Tender, No Pulsatile Mass, Normal Bowel Sounds, Soft Genitalia: Deferred Pelvic: Deferred Rectal: Deferred Extremities: No calf tenderness, Normal capillary refill, Normal inspection, Normal range of motion, Non-tender, No pedal edema Musculoskeletal : Apperance: Normal Neurologic: Alert, screen machine operator II-XII nml as Tested, No Motor Deficits, Normal Affect, Normal Mood, No Sensory Deficits Cerebellar Function: Normal Reflexes: Normal Skin: Dry, Normal Color, Warm Lymphatic: No Adenopathy Was a procedure done? Was a procedure done?: No Differential Dx Differential Diagnosis: Bronchitis, CHF, COPD, Pneumonia, Pulmonary Embolism, Respiratory Distress Comments COVID, Influenza A and B, X-Ray, Labs, Meds, VS Vital Signs Date Time Temp Pulse Resp B/P (MAP) Pulse Ox O2 Delivery O2 Flow Rate FiO2 03/19/24 18:42 113 03/19/24 18:41 20 91 Nasal Cannula 6.0 03/19/24 18:41 99.0 116 20 135/68 (90) 75 Lab Test 03/19/24 19:08 Range/Units White Blood Count 19.1 H 4.4-10.8 10^3/uL Red Blood Count 4.08 4.0-5.20 10^6/uL Hemoglobin 13.5 12.2-16.2 g/dL Hematocrit 39.8 36.0-46.0 % Mean Corpuscular Volume 97.5 80.0-100.0 fL Mean Corpuscular Hemoglobin 33.0 H 28.0-32.0 pg Mean Corpuscular Hemoglobin Concent 33.9 32.0-36.0 g/dL Red Cell Distribution Width 12.7 11.8-14.3 % Platelet Count 365 140-450 10^3/uL Mean Platelet Volume 7.6 6.9-10.8 fL Neutrophils (%) (Auto) 37.0-80.0 % Lymphocytes (%) (Auto) 10.0-50.0 % Monocytes (%) (Auto) 0.0-12.0 % Basophils (%) (Auto) 0.0-2.0 % Neutrophils # (Auto) 1.6-8.6 10 ^3/uL Lymphocytes # (Auto) 0.4-5.4 10 ^3/uL Monocytes # (Auto) 0-1.3 10 ^3/uL Differential Total Cells Counted Pending Neutrophils % (Manual) Pending Band Neutrophils % (Manual) Pending Lymphocytes % (Manual) Pending Monocytes % (Manual) Pending Eosinophils % (Manual) Pending Basophils % (Manual) Pending Metamyelocytes % (manual) Pending Myelocytes % (Manual) Pending Promyelocytes % (Manual) Pending Blast Cells % (Manual) Pending Reactive Lymphocytes Pending Platelet Estimate Pending Sodium Level 138 136-145 mmol/L Potassium Level 4.3 3.5-5.1 mmol/L Chloride Level 107 98-107 mmol/L Carbon Dioxide Level 24 20-31 mmol/L Anion Gap 7 5-15 Blood Urea Nitrogen 13 9-23 mg/dL Creatinine 0.94 0.550-1.02 mg/dL Glomerular Filtration Rate Calc 73 >90 mL/min BUN/Creatinine Ratio 13.8 10.0-20.0 Serum Glucose 123 H 74-106 mg/dL Calcium Level 10.0 8.7-10.4 mg/dL Total Bilirubin 0.6 0.2-1.0 mg/dL Aspartate Amino Transferase (AST) 57 H 13-40 U/L Alanine Aminotransferase (ALT) 16 7-40 U/L Alkaline Phosphatase 114 46-116 U/L Troponin I High Sensitivity 7 </=34 ng/L B-Type Natriuretic Peptide 96.47 0-100 pg/mL Total Protein 7.1 5.7-8.2 g/dL Albumin 4.3 3.2-4.8 g/dL X-Ray, Labs, Meds, VS Comment X-ray shows pneumonia with elevated white count Patient will be admitted for pneumonia, failed outpatient treatment Patient was still hypoxic with tachypnea. Patient will be on 15 L non-rebreathe r O2 sat at 92%. Rocephin and azithromycin to be initiated DuoNeb treatment to be initiated Time of 1ST Reevaluation: 19:20 Reevaluation 1ST: Unchanged Patient Education/Counseling: Diagnosis, Treatment Family Education/Counseling: Diagnosis, Treatment Departure 1 Departure Time of Disposition: 19:46 Impression: Primary Impression: Pneumonia Qualified Codes: J18.9 - Pneumonia, unspecified organism Additional Impression: Hypoxia Disposition: ADMITTED INPATIENT Condition: Fair Critical Care Note Critical Care Time?: No Stability Stability form required: No Heart Score Heart Score: Heart Score Response (Comments) Value History Slightly Suspicious 0 EKG Normal 0 Age 45-64 1 Risk Factors 1 or 2 risk factors 1 Troponin Normal limit 0 Total 2 I personally scribed for ANASTASIA CHACON ([email or web address]) on 03/19/24 at 18:51. Electronically submitted by Genoveva COBOS). ANASTASIA CHACON Mar 19, 2024 18:51
[2024-03-19 19:21] LABS: Hematocrit 39.8 % (36.0-46.0); Hemoglobin 13.5 g/dL (12.2-16.2); Mean Corpuscular Hgb Conc. 33.9 g/dL (32.0-36.0); Mean Corpuscular Volume 97.5 fL (80.0-100.0); Platelet Count (auto) 365 10^3/uL (140-450); Red Blood Cells 4.08 10^6/uL (4.0-5.20); Red Cell Distribution Width 12.7 % (11.8-14.3); White Blood Cell 19.1 10^3/uL (4.4-10.8)
[2024-03-19 19:23] LABS: Basophils % (manual) 0 (0.0-2.0); Blast Cells 0; Metamyelocytes % 0; Myelocytes % 0; Promyelocytes % 0; Reactive Lymphocytes 0
[2024-03-19 19:38] LABS: Alanine Aminotransferase 16 U/L (7-40); Albumin 4.3 g/dL (3.2-4.8); Alkaline Phosphatase 114 U/L (46-116); Anion Gap 7 (5-15); BUN/Creatinine Ratio 13.8 (10.0-20.0); Bilirubin, Total 0.6 mg/dL (0.2-1.0); Blood Urea Nitrogen 13 mg/dL (9-23); Carbon Dioxide 24 mmol/L (20-31); Chloride 107 mmol/L (98-107); Potassium 4.3 mmol/L (3.5-5.1); Sodium 138 mmol/L (136-145); Total Protein 7.1 g/dL (5.7-8.2)
--- NOTE | 2024-03-19 19:39 | DVH ---
CHEST RADIOGRAPH Indication: sob Technique: Single frontal view of the chest was obtained Comparison: None FINDINGS: Lines and Tubes: Anterior fusion lower cervical spine. Pulse generator over place. Lungs: Mildly prominent pulmonary vascular markings. Pleura: No effusion. No pneumothorax. Cardiomediastinal contours: Cardiac size appears enlarged Bones: No acute osseous abnormality. IMPRESSION: 1. Findings may represent congestive failure or pneumonia. HS:Y
[2024-03-19 19:40] LABS: Aspartate Aminotransferase 57 U/L (13-40); Glucose 123 mg/dL (74-106)
[2024-03-19 19:51] LABS: Band Neutrophils % (manual) 1; Eosinophils % (manual) 1 (0-7); Lymphocytes % (manual) 18 (10.0-50.0); Monocytes % (manual) 5 (0-12); Platelet Estimate Adequate
[2024-03-19 19:55] VITALS: PULSE 108; RESP 18; O2SAT 94
[2024-03-19] MEDS: IPRATROPIUM BROM 0.5 MG/2.5ML INH SOL NEB ONE (20:00)
[2024-03-19] MEDS: ALBUTEROL SULF 2.5 MG/0.5ML(0.5%) NEB SOLN NEB ONE (20:00)
[2024-03-19] MEDS: cefTRIAXone 1GM/50ML D5W 50 ML IV ONE (20:16)
[2024-03-19] MEDS: AZITHROMYCIN 500MG/ 250ML 250 ML IV ONE (20:32)
[2024-03-19 21:13] LABS: LDL Cholesterol 23 mg/dL (< 100); Triglycerides 85 mg/dL (< 150)
[2024-03-19 21:15] LABS: Cholesterol 85 mg/dL (< 200)
[2024-03-19] MEDS: FUROSEMIDE 40 MG/4 ML VIAL IV SCH (21:15)
[2024-03-19 21:19] LABS: HDL Cholesterol 40 mg/dL (40-59)
[2024-03-19] MEDS ORDERED: DEXTROSE (50%) 50ML SYRG IV PRN (21:30)
[2024-03-19] MEDS: InsuLIN REG 1unit/0.01ml Soln (100units/ml) SC SCH (22:00)
[2024-03-19] MEDS: SACUBITRIL-VALSARTAN 24mg/26mg TAB PO SCH (22:00)
[2024-03-19 23:36] LABS: Urine Bacteria None Seen /hpf (None Seen)
[2024-03-19 23:44] VITALS: BP 100/46; PULSE 100; RESP 22; O2SAT 95
[2024-03-19 23:59] LABS: Amphetamine Screen, Urine Neg (NEGATIVE); Benzodiazephine Screen, Urine Neg (NEGATIVE); Opiate Scree,Urine Neg (NEGATIVE); Phencyclidine Screen, Urine Neg (NEGATIVE)
[2024-03-20] VITALS (14 sets, daily range): BP systolic 99–125; BP diastolic 43–65; PULSE 73–104; RESP 12–23; TEMP 98.1–99.1; O2SAT 88–99
[2024-03-20] LABS: Barbiturate Scree,Urine Neg (NEGATIVE); Cannabinoid Screen, Urine Neg (NEGATIVE); Cocaine Screen, Urine Neg (NEGATIVE)
[2024-03-20] MEDS: ACCU-CHEK COMFORT CURVE STRIP VI SCH (00:06)
[2024-03-20 00:20] LABS: Urine Blood Negative /uL (Negative); Urine Clarity Clear (Clear); Urine Color Yellow (Yellow); Urine Protein, UAD TRACE (Negative); Urine Specific Gravity 1.022 (1.001-1.035); Urine Squamous Epithelial Cell FEW /hpf (<5); Urine Urobilinogen 4 mg/dL (Negative); Urine WBC 9 /HPF (0-5)
--- NOTE | 2024-03-20 00:35 | DVHHPRES ---
History of Present Illness Resident Creating Document: POOJA LYNN RESIDENT History of Present Illness This is a 53-year-old female with past medical history of CHF, type 2 diabetes, dyslipidemia, anxiety, depression, pacemaker placed in 2019. The patient presented to the ED due to shortness of breath. The patient states has been feeling lightheadedness associated with shortness of breaths for the past three weeks associated with dry cough without sputum production. The patient also mentioned minimal chest discomfort due to chronic cough but denied fever/chills, abdominal pain or any other additional concerns. The patient also reported that she went to the urgent care in the past weekend and was prescribed corticosteroids and sent home. The patient stated that before coming to the ED she was saturating 81% at home and her symptoms worsened prompting this visit. Initial labs showed a WBC of 19.1, BNP was grossly unremarkable, troponins came back negative and BNP was normal range at 96.47. Initial chest x-ray showing mild vascular congestion. My examination, the patient was on 15 L of oxygen through a non-rebreather mask saturating 95%. The patient was having 1+ bilateral pedal edema and very mild crackles on lung bases but rest of lung beach were grossly clean. We will order D-dimer since the patient is having sh ortness of breath and tachycardia. We will admit the patient for further assessment and management of possible pneumonia and possible CHF exacerbation. Past surgical history: Three fusions of the cervical vertebra, to fusion of the lumbar vertebra. -cholecystectomy 20 years ago -appendectomy when patient was a child -bilateral breast reduction -pacemaker placed in 2020 Home Medications: Ozempic 1 mg once a week, pravastatin 40 mg daily, fenofibrate 124 mg daily, Entresto 24-26 mg one tab b.i.d., carvedilol 25 mg daily, fluoxetine 60 mg daily. Patient stated that her emergency planner Dr. Wiley Cardiovascular: CHF, HTN, hyperipidemia Psych: Anxiety, Depression Past Surgical History: Appendectomy, Cholecystectomy Family History: None Smoke: <1 pack per day ALCOHOL: none Drugs: None Lives: with Family Domestic Violence: Neg Review of Systems Constitutional: No: Fever, Chills, Sweats, Weakness, Malaise, Other Eyes: No: Pain, Vision change, Conjunctivae inflammation, Eyelid inflammation, Other, Redness ENT: No: Ear pain, Ear discharge, Nose pain, Nose discharge, Nose congestion, Mouth pain, Mouth swelling, Throat pain, Throat swelling, Other Respiratory: Cough, Dry, Shortness of breath, SOB with excertion; No: Wheezing, Hemoptysis, Pleuritic Pain, Sputum, Wheezing, Other Cardiovascular: No: Chest Pain, Palpitations, Orthopnea, Paroxysmal Noc. Dyspnea, Edema, Lt Headedness, Other Gastrointestinal: No: Nausea, Vomiting, Abdominal Pain, Diarrhea, Constipation, Melena, Hematochezia, Other Genitourinary: No Dysuria, No Frequency, No Incontinence, No Hematuria, No Retention, No Other Musculoskeletal: No: other, neck pain, shoulder pain, arm pain, back pain, hand pain, leg pain, foot pain Skin: No: Rash, Lesions, Jaundice, Bruising, Other Neurological: No: Weakness, Numbness, Incoordination, Change in speech, Confusion, Seizures, Other Allergies: Uncoded Allergies: ADHESIVE (Allergy, Mild, 03/20/24) Medications Current Medications Medications Dose Ordered Sig/Thomas Route Start Time Stop Time Status Last Admin Dose Admin Acetaminophen 650 mg Q6HP PRN PO 03/19/24 21:00 Furosemide 40 mg DAILY IV 03/19/24 21:15 Atorvastatin Calcium 40 mg DAILY PO 03/20/24 10:00 Fluoxetine HCl 60 mg DAILY PO 03/20/24 10:00 Sacubitril/ Valsartan 1 tab BID PO 03/19/24 22:00 Diagnostic Test (Pha) 1 strip ACHS 03/19/24 22:00 03/20/24 00:06 1 STRIP Insulin Human Regular ACHS SC 03/19/24 22:00 Dextrose 50 ml UD PRN IV 03/19/24 21:30 Azithromycin 250 ml @ 125 mls/hr DAILY IV 03/20/24 10:00 Ceftriaxone Sodium 50 ml @ 100 mls/hr DAILY IV 03/20/24 10:00 Exam Vital Signs Vital Signs Date Time Temp Pulse Resp B/P (MAP) Pulse Ox O2 Delivery O2 Flow Rate FiO2 03/19/24 23:44 100 22 95 40.0 55 03/19/24 23:31 100/45 (63) 03/19/24 20:50 99.1 99.1 03/19/24 19:55 Nasal Cannula* Non-Rebreather General Appearance: Alert, Oriented X3, Cooperative, mild distress HEENT: Atraumatic, PERRLA, EOMI, Mucous membr. moist/pink Respiratory: Normal air movement, Other (Patient is having mild bilateral crackles on lung bases but rest of lung beach are clear) Cardiovascular: Regular rate, Normal S1, Normal S2, No murmurs Abdominal: Normal bowel sounds, Soft, No tenderness, No hepatospenomegaly, No masses Extremities: No clubbing, No cyanosis, Normal pulses, Other (There was bilateral lower extremity 1+ pitting edema) Skin: No rashes, No breakdown, No significant lesion Neuro: Normal gait, Normal speech, Strength at 5/5 X4 ext, Normal tone, Sensation intact, Cranial nerves 3-12 NL, Reflexes 2+ Psych/Mental Status: Mental status NL, Mood NL Labs/Xrays Labs Test 03/19/24 23:52 03/19/24 23:00 03/19/24 20:07 03/19/24 19:08 Range/Units POC Glucose 149 H 70-106 mg/dl Urine Opiates Screen Neg NEGATIVE Urine Fentanyl Screen Neg NEGATIVE Urine Barbiturates Screen Neg NEGATIVE Urine Phencyclidine Screen Neg NEGATIVE Urine Amphetamines Screen Neg NEGATIVE Urine Benzodiazepines Screen Neg NEGATIVE Urine Cocaine Screen Neg NEGATIVE Urine Cannabinoids Screen Neg NEGATIVE Troponin I High Sensitivity 7 </=34 ng/L White Blood Count 19.1 H 4.4-10.8 10^3/uL Red Blood Count 4.08 4.0-5.20 10^6/uL Hemoglobin 13.5 12.2-16.2 g/dL Hematocrit 39.8 36.0-46.0 % Mean Corpuscular Volume 97.5 80.0-100.0 fL Mean Corpuscular Hemoglobin 33.0 H 28.0-32.0 pg Mean Corpuscular Hemoglobin Concent 33.9 32.0-36.0 g/dL Red Cell Distribution Width 12.7 11.8-14.3 % Platelet Count 365 140-450 10^3/uL Mean Platelet Volume 7.6 6.9-10.8 fL Neutrophils (%) (Auto) 37.0-80.0 % Lymphocytes (%) (Auto) 10.0-50.0 % Monocytes (%) (Auto) 0.0-12.0 % Basophils (%) (Auto) 0.0-2.0 % Neutrophils # (Auto) 1.6-8.6 10 ^3/uL Lymphocytes # (Auto) 0.4-5.4 10 ^3/uL Monocytes # (Auto) 0-1.3 10 ^3/uL Differential Total Cells Counted 100.0 100 Neutrophils % (Manual) 75 37.0-80.0 Band Neutrophils % (Manual) 1 Lymphocytes % (Manual) 18 10.0-50.0 Monocytes % (Manual) 5 0-12 Eosinophils % (Manual) 1 0-7 Basophils % (Manual) 0 0.0-2.0 Metamyelocytes % (manual) 0 Myelocytes % (Manual) 0 Promyelocytes % (Manual) 0 Blast Cells % (Manual) 0 Reactive Lymphocytes 0 Platelet Estimate Adequate Sodium Level 138 136-145 mmol/L Potassium Level 4.3 3.5-5.1 mmol/L Chloride Level 107 98-107 mmol/L Carbon Dioxide Level 24 20-31 mmol/L Anion Gap 7 5-15 Blood Urea Nitrogen 13 9-23 mg/dL Creatinine 0.94 0.550-1.02 mg/dL Glomerular Filtration Rate Calc 73 >90 mL/min BUN/Creatinine Ratio 13.8 10.0-20.0 Serum Glucose 123 H 74-106 mg/dL Hemoglobin A1c 5.9 H <5.7 % A1C Calcium Level 10.0 8.7-10.4 mg/dL Total Bilirubin 0.6 0.2-1.0 mg/dL Aspartate Amino Transferase (AST) 57 H 13-40 U/L Alanine Aminotransferase (ALT) 16 7-40 U/L Alkaline Phosphatase 114 46-116 U/L B-Type Natriuretic Peptide 96.47 0-100 pg/mL Total Protein 7.1 5.7-8.2 g/dL Albumin 4.3 3.2-4.8 g/dL Triglycerides Level 85 < 150 mg/dL Cholesterol Level 85 < 200 mg/dL LDL Cholesterol 23 < 100 mg/dL HDL Cholesterol 40 40-59 mg/dL Assessment/Plan Assessment/Plan Assessment/plan Acute hypoxic respiratory failure likely due to Gram-positive/Gram-negative bacterial pneumonia/typical pneumonia R/O pulmonary embolism -currently on 15 L of oxygen through non-rebreather mask saturating 95% -initial chest x-ray showing mild pulmonary vascular congestion but pneumonia can not be ruled out -initial WBC is 19.1 -Order D-dimer -start IV azithromycin -start IV ceftriaxone -ordered sputum culture -further MRSA screen -ordered COVID test -ordered influenza a and B -monitor oxygen saturation -order ABG Possible acute on chronic systolic/diastolic heart failure exacerbation -ordered echocardiogram -BNP was 96.47 -patient had bilateral 1+ pitting edema -troponins were negative -start furosemide 40 mg IV daily -start Entresto one tab b.i.d. -hold carvedilol at this time due to low blood pressure. Consider resuming once pedal edema start improving blood pressure allows. Type 2 diabetes mellitus -ordered hemoglobin A1c -start mild sliding scale insulin Dyslipidemia -order lipid panel -start atorvastatin 40 mg daily History of anxiety and depression -resume home fluoxetine 60 mg daily History of pacemaker placement on 2019 -Cardiology is Dr. Wiley Goals of care discussed with the patient and at bedside for >25min, FULL CODE Plan discussed with Dr. Bright Plan discussed with: Patient My Orders Orders - POOJA LYNN RESIDENT Procedure Category Date Status Time Admit ADMIT 03/19/24 Transmitted 20:46 Code Status CODE 03/19/24 Transmitted 20:46 Vital Signs KAMILA 03/19/24 In Process 20:46 Review Orders With KAMILA 03/19/24 In Process Adm. 20:46 Encourage Activity As KAMILA 03/19/24 In Process Tolerate 20:46 Pulse Ox Cont Per Day RT 03/19/24 Logged 20:46 Acetaminophen Tablet PHA 03/19/24 In Process (Tylenol Tablet) 21:00 Notify Of Changes KAMILA 03/19/24 In Process From Base 20:46 Advance Directive KAMILA 03/19/24 In Process 20:46 Urinalysis LAB 03/19/24 In Process 20:46 Urine Bacterial KEITH 03/19/24 In Process Culture 20:46 Patient Condition ORDERS 03/19/24 Transmitted 20:46 Allergies KAMILA 03/19/24 In Process 20:46 Covid19 Antigen Annabelle LAB 03/19/24 Logged Rapid Influenza A&B LAB 03/19/24 Logged 20:51 Mrsa Screen KEITH 03/19/24 Logged 20:51 Cardiac DIET 03/20/24 Transmitted Diet-2gna,Lofat,Lochol Breakfast Strict I & O KAMILA 03/19/24 In Process 20:51 Echo 2d Mode Cardiac US 03/19/24 Logged DOP 20:51 Respiratory Culture KEITH 03/19/24 Logged W/ Gs 21:10 Furosemide Injection PHA 03/19/24 In Process (Lasix Injection) 21:15 Atorvastatin (Lipitor) PHA 03/20/24 In Process 10:00 Sacubitril-Valsartan PHA 03/19/24 In Process (Entresto 24-26 Mg 22:00 Glucose Blood PHA 03/19/24 In Process (Accu-Chek Comfort 22:00 Insulin R (Human) PHA 03/19/24 In Process (Insulin R) 22:00 Dextrose 50% Syringe PHA 03/19/24 In Process 21:30 Azithromycin 500mg/ PHA 03/20/24 In Process 250ml (Zithromax 50 10:00 Ceftriaxone 1gm/50ml PHA 03/20/24 In Process D5w (Rocephin) 10:00 Fluoxetine Capsule PHA 03/20/24 In Process (Prozac Capsule) 10:00 Oxygen By High-Flow RT 03/19/24 Transmitted 23:42 Abg W/ Co-Ox RT 03/19/24 Logged 00:45 D-Dimer LAB 03/20/24 Logged 00:13 Date of Service: Mar 19, 2024 Billing Provider: THAI BRIGHT MD Common Visit Codes: [id number] INP/OBS CARE (HIGH) POOJA LYNN RESIDENT Mar 20, 2024 00:35 THAI BRIGHT MD Mar 21, 2024 00:28
[2024-03-20 00:48] LABS: Base Excess -0.3 mmol/L (-2.0-3.0)
[2024-03-20 05:11] LABS: Rapid Influenza A Negative (Negative); Rapid Influenza B Negative (Negative)
[2024-03-20 05:12] LABS: COVID19 ANTIGEN SOFIA FIA NEGATIVE (NEGATIVE)
[2024-03-20 06:18] LABS: Basophils # (auto) 0.2 10 ^3/uL (0-0.2); Basophils % (auto) 1.3 % (0.0-2.0); Eosinophils # (auto) 0.2 10 ^3/uL (0-0.8); Eosinophils % (auto) 1.2 % (0.0-7.0); Lymphocytes # (auto) 1.8 10 ^3/uL (0.4-5.4); Lymphocytes % (auto) 11.2 % (10.0-50.0); Mean Corpuscular Hemoglobin 32.4 pg (28.0-32.0); Mean Corpuscular Hgb Conc. 33.2 g/dL (32.0-36.0); Mean Corpuscular Volume 97.6 fL (80.0-100.0); Monocytes # (auto) 0.9 10 ^3/uL (0-1.3); Neutrophils # (auto) 12.6 10 ^3/uL (1.6-8.6); Neutrophils % (auto) 80.3 % (37.0-80.0); Platelet Count (auto) 327 10^3/uL (140-450); Red Cell Distribution Width 12.5 % (11.8-14.3); White Blood Cell 15.7 10^3/uL (4.4-10.8)
[2024-03-20] MEDS: IOHEXOL 350 MG/ML 100ML IJ ONE ×2 (06:20→20:13)
[2024-03-20 06:52] LABS: Alanine Aminotransferase 14 U/L (7-40); Alkaline Phosphatase 107 U/L (46-116); Anion Gap 7 (5-15); Aspartate Aminotransferase 52 U/L (13-40); BUN/Creatinine Ratio 15.4 (10.0-20.0); Bilirubin, Total 0.7 mg/dL (0.2-1.0); Blood Urea Nitrogen 14 mg/dL (9-23); Calcium 9.7 mg/dL (8.7-10.4); Carbon Dioxide 27 mmol/L (20-31); Chloride 105 mmol/L (98-107); Glucose 149 mg/dL (74-106); Potassium 4.2 mmol/L (3.5-5.1); Sodium 139 mmol/L (136-145); Total Protein 6.5 g/dL (5.7-8.2)
[2024-03-20] MEDS ORDERED: VANCOMYCIN PER PHARMACY 0 MG IV SCH (09:30)
[2024-03-20] MEDS ORDERED: cefTRIAXone 1GM/50ML D5W 50 ML IV SCH (10:00)
[2024-03-20] MEDS ORDERED: ATORVASTATIN 20 MG TAB PO SCH (10:00)
[2024-03-20] MEDS ORDERED: AZITHROMYCIN 500MG/ 250ML 250 ML IV SCH (10:00)
[2024-03-20] MEDS: FLUoxetine HCL 20 MG CAP PO SCH (10:04)
[2024-03-20] MEDS: methylPREDNISolone SOD SUCC 125 MG/2 ML VL IV ONE (10:05)
--- NOTE | 2024-03-20 10:05 | DVHINCON2 ---
Date of service: Mar 20, 2024 History of Present Illness HPI Patient was a 53-year-old female who presented with few weeks of shortness of breaths/cough. She did have sick contact at home. Problem worsened and she decided to come to the hospital. In emergency room, oxygen saturation was 77% and was started on high-flow oxygen. Does have history of cardiomyopathy and does have BiV-ICD (Biotronik) implantation from before. Patient was taken to our office as outpatient and cardiology was involved for cardiac aspect of care. Denies chest pains. Denies loss of consciousness. It was of note that the patient decided few years ago to turn off the defibrillator power of the device and uses if as pacemaker. Patient has been on antibiotics as outpatient also. Past Medical History Others ast medical history includes diabetes mellitus, obesity, anxiety disorder, depression, heart failure, cardiomyopathy, status post BiV-ICD implantation (Biotronik), status post cholecystectomy, appendectomy and bilateral breast reduction. It was of note that the patient was decided to turn off the defibrillator capacity of the device few years back and continues using it as pacemaker. Smoker: No Hx (Negative) Alocohol: None Drugs: None Lives with: With family Review of Systems Constitutional: Chills, Fever, Malaise Ears, Nose, & Throat: No symptom reported Eyes: No symptom reported Pulmonary/Respiratory: Dyspnea, Cough All Other Systems 14 point review of system was performed. Relevant findings as per above and as per HPI. Otherwise negative. H&P Exam Vital Signs Vital Signs Date Time Temp Pulse Resp B/P (MAP) Pulse Ox O2 Delivery O2 Flow Rate FiO2 03/20/24 09:00 105 20 117/61 (79) 93 03/20/24 08:00 99.3 99.3 03/20/24 08:00 Hi-Flow Heated NC+ 55 75 75 General Appeara: Well developed, Mild distress, Obese Head Exam: Normal inspection Neck Exam: Normal inspection Eye Exam: bilateral eye PERRL Mouth: Normal Inspection Pulmonary/Respiratory: Rales, Rhonci Cardiovascular/Chest: Regular rate, Systolic murmur Peripheral Pulses: 2+ carotid (R), 2+ carotid (L), 2+ femoral (R), 2+ femoral (L), 2+ dorsalis pedis (R), 2+ dorsalis pedis (L), 2+ Radial (R), 2+ Radial (L) Abdominal Exam: Normal bowel sounds, Soft Neuro/Mental St: Alert, Oriented Appearance: Appropriate appearance Eye contact/ Speech: Cooperative Labs/Xrays Labs Test 03/20/24 06:18 03/20/24 05:55 03/20/24 04:08 03/20/24 00:41 Range/Units POC Glucose 153 H 70-106 mg/dl White Blood Count 15.7 H 4.4-10.8 10^3/uL Red Blood Count 4.00 4.0-5.20 10^6/uL Hemoglobin 13.0 12.2-16.2 g/dL Hematocrit 39.0 36.0-46.0 % Mean Corpuscular Volume 97.6 80.0-100.0 fL Mean Corpuscular Hemoglobin 32.4 H 28.0-32.0 pg Mean Corpuscular Hemoglobin Concent 33.2 32.0-36.0 g/dL Red Cell Distribution Width 12.5 11.8-14.3 % Platelet Count 327 140-450 10^3/uL Mean Platelet Volume 7.4 6.9-10.8 fL Neutrophils (%) (Auto) 80.3 H 37.0-80.0 % Lymphocytes (%) (Auto) 11.2 10.0-50.0 % Monocytes (%) (Auto) 6.0 0.0-12.0 % Eosinophils (%) (Auto) 1.2 0.0-7.0 % Basophils (%) (Auto) 1.3 0.0-2.0 % Neutrophils # (Auto) 12.6 H 1.6-8.6 10 ^3/uL Lymphocytes # (Auto) 1.8 0.4-5.4 10 ^3/uL Monocytes # (Auto) 0.9 0-1.3 10 ^3/uL Eosinophils # (Auto) 0.2 0-0.8 10 ^3/uL Basophils # (Auto) 0.2 0-0.2 10 ^3/uL Nucleated Red Blood Cells 0.0 % Sodium Level 139 136-145 mmol/L Potassium Level 4.2 3.5-5.1 mmol/L Chloride Level 105 98-107 mmol/L Carbon Dioxide Level 27 20-31 mmol/L Anion Gap 7 5-15 Blood Urea Nitrogen 14 9-23 mg/dL Creatinine 0.91 0.550-1.02 mg/dL Glomerular Filtration Rate Calc 76 >90 mL/min BUN/Creatinine Ratio 15.4 10.0-20.0 Serum Glucose 149 H 74-106 mg/dL Calcium Level 9.7 8.7-10.4 mg/dL Total Bilirubin 0.7 0.2-1.0 mg/dL Aspartate Amino Transferase (AST) 52 H 13-40 U/L Alanine Aminotransferase (ALT) 14 7-40 U/L Alkaline Phosphatase 107 46-116 U/L Total Protein 6.5 5.7-8.2 g/dL Albumin 4.0 3.2-4.8 g/dL Influenza Type A Antigen Negative Negative Influenza Type B Antigen Negative Negative SARS-CoV-2 Antigen (Rapid) Negative NEGATIVE Blood Gas Specimen Type Arterial Blood Gas Sample Site Right radial Blood Gas Patient Temperature 37.0 Arterial Blood Date Drawn [id number] Arterial Blood pH 7.455 H 7.350-7.450 Arterial Blood Partial Pressure CO2 33.4 32.0-45.0 mmHg Arterial Blood Partial Pressure O2 61.6 L 83.0-108.0 mmHg Arterial Blood HCO3 23.0 21.0-28.0 mmol/L Arterial Blood Oxygen Saturation 92.5 L 94.0-98.0 % Arterial Blood Base Excess -0.3 -2.0-3.0 mmol/L Arterial Blood Oxyhemoglobin 91.4 L 94.0-98.0 % Arterial Blood Carboxyhemoglobin 0.6 0.5-1.5 % Arterial Blood Methemoglobin 0.6 0.0-1.5 % Porfirio Test Modified Blood Gas Total Hemoglobin 13.20 12.0-16.0 g/dL Blood Gas Liter Flow 40.00 Blood Gas Modality High flow FiO2 % 55.0 Test 03/20/24 00:35 03/19/24 23:00 03/19/24 20:07 03/19/24 19:08 Range/Units D-Dimer, Quantitative 1.12 H 0.0-0.49 mg/L FEU Urine Color Yellow Yellow Urine Clarity Clear Clear Urine pH 6.0 5.0-9.0 Urine Specific [place] 1.022 1.001-1.035 Urine Protein Trace H Negative Urine Ketones Trace Negative Urine Blood Negative Negative /uL Urine Nitrite Negative Negative Urine Bilirubin Negative Negative Urine Urobilinogen 4 H Negative mg/dL Urine Leukocyte Esterase 1+ Negative /uL Urine RBC 12 0 - 4 /hpf Urine Microscopic WBC 9 H 0-5 /HPF Urine Squamous Epithelial Cells Few <5 /hpf Urine Bacteria None seen None Seen /hpf Urine Glucose Normal Normal mg/dL Urine Opiates Screen Neg NEGATIVE Urine Fentanyl Screen Neg NEGATIVE Urine Barbiturates Screen Neg NEGATIVE Urine Phencyclidine Screen Neg NEGATIVE Urine Amphetamines Screen Neg NEGATIVE Urine Benzodiazepines Screen Neg NEGATIVE Urine Cocaine Screen Neg NEGATIVE Urine Cannabinoids Screen Neg NEGATIVE Troponin I High Sensitivity 7 </=34 ng/L Differential Total Cells Counted 100.0 100 Neutrophils % (Manual) 75 37.0-80.0 Band Neutrophils % (Manual) 1 Lymphocytes % (Manual) 18 10.0-50.0 Monocytes % (Manual) 5 0-12 Eosinophils % (Manual) 1 0-7 Basophils % (Manual) 0 0.0-2.0 Metamyelocytes % (manual) 0 Myelocytes % (Manual) 0 Promyelocytes % (Manual) 0 Blast Cells % (Manual) 0 Reactive Lymphocytes 0 Platelet Estimate Adequate Hemoglobin A1c 5.9 H <5.7 % A1C B-Type Natriuretic Peptide 96.47 0-100 pg/mL Triglycerides Level 85 < 150 mg/dL Cholesterol Level 85 < 200 mg/dL LDL Cholesterol 23 < 100 mg/dL HDL Cholesterol 40 40-59 mg/dL Assessment/Plan Plan Patient was a 53-year-old female who presented with few weeks of shortness of breaths/cough. She did have sick contact at home. Problem worsened and she d ecided to come to the hospital. In emergency room, oxygen saturation was 77% and was started on high-flow oxygen. Does have history of cardiomyopathy and does have BiV-ICD (Biotronik) implantation from before. Patient was taken to our office as outpatient and cardiology was involved for cardiac aspect of care. Denies chest pains. Denies loss of consciousness. It was of note that the patient decided few years ago to turn off the defibrillator power of the device and uses if as pacemaker. Patient has been on antibiotics as outpatient also. Obese lady. On high-flow oxygen. No JVD. Mucosa is pink and wet. Lungs reveals scattered rhonchi in crackles. Cardiac: Regular, systolic murmur 2/6 and apex is heard. Abdomen is soft. There was no gross mass. There is no hepatomegaly. Extremities do not reveal edema. Dorsalis pedis is 2+ bilateral Past medical history includes diabetes mellitus, obesity, anxiety disorder, depression, heart failure, cardiomyopathy, status post BiV-ICD implantation (Biotronik), status post cholecystectomy, appendectomy and bilateral breast reduction. It was of note that the patient was decided to turn off the defibrillator capacity of the device few years back and continues using it as pacemaker. Echocardiogram (performed in the office) of June 13, 2022 at reported mild concentric left ventricular hypertrophy, ejection fraction 55-60%, mild left atrial enlargement, mild MR/TR and right ventricular systolic pressure of less than 30 mm Hg Echocardiogram of December 04, 2023 had reported ejection fraction of 55%. Nuclear stress test of January 22, 2024 (performed in [facility]) reported ejection fraction 47%, low risk study, anterior wall defect in rest and stress imaging White blood cell: 19.1 - 15.7 D-dimer: 1.12 Creatinine: 0.94 - 0.91 Potassium: 4.3 - 4.2 BNP: 96.47 Troponin (high sensitive): 7 - 7 Urine toxicology was non-revealing Chest x-ray reported: FINDINGS: Lines and Tubes: Anterior fusion lower cervical spine. Pulse generator over place. Lungs: Mildly prominent pulmonary vascular markings. Pleura: No effusion. No pneumothorax. Cardiomediastinal contours: Cardiac size appears enlarged Bones: No acute osseous abnormality. IMPRESSION: 1. Findings may represent congestive failure or pneumonia. EKG reveals sinus rhythm Patient was a 53-year-old female with history of cardiomyopathy who presented with few weeks of worsening shortness breath and cough. Was found to have low oxygen saturation and is found to have acute respiratory failure. Presentation is more likely in favor of pneumonia/bronchitis. Does have history of heart failure but clinically heart failure is not significantly decompensated. Mild component of acute on chronic heart failure can not be ruled out. Acute respiratory failure Pneumonia, community-acquired Obesity Cardiomyopathy Acute on chonic Diastolic heart failure Status post Bi V ICD implantation (Biotronik) Cardiac suggestion for management: Manage on telemetry Follow up electrolytes and kidney function tests and correct abnormalities May consider repeat echocardiogram Request interrogation of the Biotronik device Evaluation and management of respiratory failure/pneumonia as per primary team Further evaluation and management depends on the above and clinical course Thank you for consultation A total of 75 minutes was spent reviewing the patient record, examining the patient, making a diagnostic and therapeutic plan, discussing this plan with medical personnel, following up on diagnostic studies and following the patient for clinical stability excluding any and all procedures. At least 50% of this time was spent in direct, [id number] contact. Thank you for allowing me to participate in this patient's care. Further recommendations will depend on patient's clinical course. Please do not hesitate to contact me if you have any questions or concerns. This medical document was created using electronic medical record system with [employer] computerized dictation system. Although this document has been carefully reviewed, there may still be some phonetic and typographical errors. These areas are purely typographical due to the imperfection of the software programs, and do not reflect any compromise in the patient's medical care. Plan discussed with: Patient, Other (nurse) ANTONIETA GREEN MD Mar 20, 2024 10:05
[2024-03-20] MEDS: VANCOMYCIN 1GM/250ML KIT 250 ML IV SCH (10:06)
--- NOTE | 2024-03-20 11:40 | DVHPNRES ---
Progress Note Date Seen: Mar 20, 2024 Resident Creating Document: BETTY YOST RESIDENT Medical Necessity Reason Pt with a Central, PICC or Fol: No Subjective Review of Systems Taylor Coleman is a 53-year-old female who presented to the ED due to progressive dyspnea from functional class I to functional class IV in the past 3 weeks, associated with dry cough and lightheadedness. Patient reports presenting upper respiratory infection which started three weeks ago, he got better but she has been getting progressively worse prompting her visit to the ED. The patient also reported that she went to the urgent care in the past weekend and was prescribed corticosteroids and sent home. When patient arrived to the ED she was saturating 75% in room air with requirement of oxygen therapy with non-rebreather mask. Denies fever, chills, chest pain, palpitation, syncope, nausea, vomiting, diarrhea, recent travel and motor or sensory deficits. Past medical history: Dyslipidemia, obesity, diabetes, history of cardiomyopathy with HFrEF which is improved (per patient previous LVEF 20%, currently 55%) status post AGRI BUSINESS AGENT-D (Biotronik) which defibrillator currently deactivated and only has pacing mechanism, anxiety, depression, stress test on January 25, 2024 low risk study (per quality assurance inspector) Surgical history: Three fusions of the cervical vertebra, to fusion of the lumbar vertebra, cholecystectomy 20 years ago, appendectomy when patient was a child, bilateral breast reduction, AGRI [employer] AGENT-D (no atrial lead) placed in 2019 Family history: Noncontributory Social history: Lives with family in [place]. Recently quit smoking tobacco three weeks ago (30 pack-year history of smoking). Denies current alcohol and other drug abuse. Home Medications: Ozempic 1 mg once a week, pravastatin 40 mg daily, fenofibrate 124 mg daily, Entresto 24-26 mg one tab b.i.d., carvedilol 25 mg daily, fluoxetine 60 mg daily. Patient stated that her quality assurance inspector Dr. Wiley Patient seen and examined at bedside. Currently requiring high-flow oxygen therapy with mild dyspnea, she is currently ALFRED status. Has no other complaints Objective vital signs Vital Sign Date Time Temp Pulse Resp B/P (MAP) Pulse Ox O2 Delivery O2 Flow Rate FiO2 03/20/24 11:00 103 27 117/61 (79) 93 03/20/24 10:28 45.0 70 03/20/24 08:00 99.3 99.3 03/20/24 08:00 Hi-Flow Heated NC+ Total Intake and Output 03/19/24 03/19/24 03/20/24 15:00 23:00 07:00 Intake Total 50 ml Balance 50 ml medications Current Medications Medications Dose Ordered Sig/Thomas Route Start Time Stop Time Status Last Admin Dose Admin Acetaminophen 650 mg Q6HP PRN PO 03/19/24 21:00 Fluoxetine HCl 60 mg DAILY PO 03/20/24 10:00 03/20/24 10:04 60 MG Sacubitril/ Valsartan 1 tab BID PO 03/19/24 22:00 Hold Diagnostic Test (Pha) 1 strip ACHS 03/19/24 22:00 03/20/24 06:21 1 STRIP Insulin Human Regular ACHS SC 03/19/24 22:00 Dextrose 50 ml UD PRN IV 03/19/24 21:30 Vancomycin HCl 0 ml @ 0 mls/hr UD IV 03/20/24 09:30 Cefepime HCl 50 ml @ 12.5 mls/hr Q8HR IV 03/20/24 14:00 Atorvastatin Calcium 40 mg HS PO 03/20/24 22:00 Heparin Sodium/ Dextrose 250 ml @ 18.81 mls/ hr [id number] IV 03/20/24 11:45 UNV Examination Patient lying in bed, in no acute distress General: Lucid, afebrile, mucosae are moist Cardiovascular: Tachycardia. Normal S1 and S2. No murmurs, gallops or rubs, no JVD. Respiratory: Tachypneic, regular ventilation mechanics, no use of accessory muscles of breathing at this moment. Mild rales on right hemithorax base, localized wheezing in right base. Abdomen: Soft, nontender, no organomegaly, normal bowel sounds MSK/skin: Mobilizes 4 limbs. Skin is dry and warm. Mild perimalleolar pitting edema Neurological: Oriented in 3 spheres. No motor no sensitive deficits. Pupils are isocoric and reactive laboratory and microbiology Laboratory Tests 03/20/24 05:55 Test 03/20/24 05:55 Range/Units Serum Glucose 149 H 74-106 mg/dL Problem List/Assessment/Plan Problem List/Assessment/Plan # Acute hypoxic respiratory failure likely due to Gram-positive/Gram-negative bacterial pneumonia/typical pneumonia versus acute on chronic diastolic congestive heart failure Currently on oxygen therapy with high-flow at 65% FiO2. Patient has ALFRED status # Probable Gram-positive/Gram-negative bacterial pneumonia Currently under empiric IV antibiotic (cefepime and vancomycin, previously on azithromycin and ceftriaxone) Ordered cultures (blood, urine and sputum) and MRSA, pending COVID and influenza negative # Possible acute on chronic systolic/diastolic heart failure exacerbation - status post AGRI [employer] AGENT-D placement Patient has history of improved HFrEF (LVEF from 20% to 55%) Patient received IV diuretics on admission, currently discontinued diuretics. She is status post [employer]-D, currently only in pacemaker mode (defibrillation was turned off due to modified DNR)-ordered echocardiogram Troponin and BNP negative. Discontinued GDM T at this point due to soft blood pressures, discontinue diuretics due to dry mucous membranes. Patient does not have atrial lead, EKG shows atrial activity and spike before QRS complex (questionable pacemaker syndrome). Have ordered cardiac device interrogation. Cardiology was consulted Last nuclear test reported ejection fraction 47%, low risk study, anterior wall defect in rest and stress imaging # Rule out pulmonary embolism Positive D-dimer, ordered angio CT, pending since patient is on high-flow. Currently patient is on heparin drip A-a Gradient 17 mmHg adjusted to age (increased) # Type 2 diabetes mellitus - Controlled (hemoglobin A1c 5.9%) Mild sliding scale insulin # Dyslipidemia Currently on atorvastatin 40 mg daily # History of anxiety and depression Resume home fluoxetine 60 mg daily Critical care time spent including discussion with nursing and family: 62 minutes Goals of care discussed with the patient and at bedside for >25min: Modified DNR/DNI (no chest compression, intubation nor defibrillation) Plan discussed with Dr. Hunt, patient and nurses: Patient currently ALFRED status due to requirement of high-flow oxygen therapy. Currently under empiric IV antibiotic (cefepime and vancomycin), IV steroids, bronchodilators, on heparin drip (questionable PE), discontinued IV diuretics (mucous membranes dry, no JVD), ordered cardiac device interrogation. Patient has poor prognosis. Plan discussed with: Patient, Other (Nurses) My Orders My Orders Orders - BETTY YOST RESIDENT Procedure Category Date Status Time Blood Culture KEITH 03/20/24 In Process 06:47 Respiratory Misc. RT 03/20/24 Transmitted Order 11:35 Platelet Monitoring [facility] 03/20/24 In Process 11:35 Vte Protocol Initiated [facility] 03/20/24 In Process 11:35 Heparin Per [facility] 03/20/24 In Process Standardized Proce 11:35 Discontinue All Im [facility] 03/20/24 In Process Injections 11:35 PTPTT LAB 03/20/24 Logged 11:35 Complete Blood Count LAB 03/20/24 Logged 11:35 Heparin Sodium [facility] 03/20/24 Logged (Porcine) 11:45 Heparin Drip/D5w [facility] 03/20/24 Logged 100units/Ml 11:45 Date of Service: Mar 20, 2024 Billing Provider: EARLENE HUNT MD Common Visit Codes: [id number]-[id number] CARE 30-74 MIN BETTY YOST RESIDENT Mar 20, 2024 11:40 EARLENE HUNT MD Mar 20, 2024 21:31
[2024-03-20 12:18] LABS: INR 1.19 (0.9-1.15); Partial Thromboplastin Time 31.6 SEC (24.5-34.5); Prothrombin Time 12.4 sec (9.3-11.8)
[2024-03-20] MEDS: HEPARIN SODIUM (PORCINE) 5000 UNITS/ML 1ML VIAL IV ONE (12:23)
[2024-03-20] MEDS: HEPARIN DRIP/D5W 100UNITS/ML 250 ML IV SCH (12:25)
[2024-03-20 12:27] LABS: Basophils # (auto) 0.1 10 ^3/uL (0-0.2); Basophils % (auto) 0.7 % (0.0-2.0); Eosinophils # (auto) 0.2 10 ^3/uL (0-0.8); Eosinophils % (auto) 1.1 % (0.0-7.0); Hematocrit 35.8 % (36.0-46.0); Hemoglobin 11.9 g/dL (12.2-16.2); Lymphocytes # (auto) 1.3 10 ^3/uL (0.4-5.4); Lymphocytes % (auto) 7.8 % (10.0-50.0); Mean Corpuscular Hemoglobin 32.6 pg (28.0-32.0); Mean Corpuscular Hgb Conc. 33.2 g/dL (32.0-36.0); Monocytes # (auto) 0.6 10 ^3/uL (0-1.3); Monocytes % (auto) 3.3 % (0.0-12.0); Neutrophils # (auto) 14.9 10 ^3/uL (1.6-8.6); Neutrophils % (auto) 87.1 % (37.0-80.0); Platelet Count (auto) 333 10^3/uL (140-450); Red Blood Cells 3.65 10^6/uL (4.0-5.20); Red Cell Distribution Width 12.9 % (11.8-14.3); White Blood Cell 17.1 10^3/uL (4.4-10.8)
[2024-03-20] MEDS: CEFEPIME 1GM/ 50ML 50 ML IV SCH (14:16)
--- NOTE | 2024-03-20 18:33 | DVHSR ---
APPROVED REPORT EXAM: Two-dimensional and M-mode echocardiogram with Doppler and color Doppler. Blood Pressure: 96/57 mmHg INDICATION CHF, no baseline echo RISK FACTORS Height: 5'6, Weight: 230 DIMENSIONS LVDd5.4 (3.8-5.7cm)LA (2D)4.0 (1.9-4.0cm)Aortic Root3.1 (2.0-3.7cm) LVDs3.5 (2.5-4.0cm)LA (MM) (1.9-4.0cm)Aortic Cusp Exc1.6 (1.5-2.0cm) EF (%) 60.0 (55-70%)Rt. Atrium4.1 (1.9-4.0cm)Asc. Aorta3.1 cm IVSd1.1 (0.7-1.1cm)RV (D)4.1 (1.8-2.4cm) PWd0.9 (0.7-1.1cm) Mitral Valve MitralMitral Stenosis E wave1.04m/sMV Mean GR.mmHg A wave1.02m/sMV Peak GR.80mmHg E/A ratio1.02D MVAcm2 DECEL [id number] 1/2 Timems Aortic Valve Aortic ValveAortic Stenosis V11.21m/Johann Mean GR.7mmHg V21.67m/Johann Peak GR.11mmHg LVOT Diameter2.1 (1.8-2.4cm)Doppler AVA2.51cm2 Pulmonic Valve V21.28m/s Tricuspid Valve TR Velocity2.50m/s [id number] Other Information Quality : Technically DifficultRhythm : Technically limited study due to pt sitting up, SOB Conclusion Left ventricle: Borderline concentric left ventricular hypertrophy was seen. LVEF was 60-65%. Ther e was no gross wall motion abnormality. Right ventricle was normal sized with normal systolic function. Both atria were mildly dilated. Aortic valve: Aortic valve was trileaflet. There was no aortic insufficiency/stenosis. There was mi ld mitral/tricuspid regurgitation. Mild mitral annular calcification was seen. Pulmonary valve reve aled mild insufficiency. IVC was normal sized with normal respiratory evaluation. Right ventricular systolic pressure was ass essed at 28 mm Hg.
[2024-03-20] MEDS: ACETAMINOPHEN 325 MG TAB PO PRN (18:40)
[2024-03-20 18:47] LABS: INR 1.23 (0.9-1.15); Partial Thromboplastin Time 65.1 SEC (24.5-34.5); Prothrombin Time 12.8 sec (9.3-11.8)
--- NOTE | 2024-03-20 21:20 | DVH ---
PROCEDURE: CT CT ANGIO CHEST CONTRAST 03/20/2024 08:24 PM INDICATION: RULE OUT PE COMPARISON: None TECHNIQUE: Coverage: Thorax IV contrast: Administered Phases: Arterial Multiplanar 3-D Maximum Intensity Projection images (MIP) reconstructions were created by the technjessie arevalo in the coronal and sagittal planes as part of the CT angiography protocol. Adverse events: None Medication laboratory values were reviewed to verify the patient meets criteria for contrast administ ration. All CT scans at this medical facility are performed using dose modulation techniques as appropriate t o a performed exam including the following: Automated exposure control was utilized; adjustment of th e MA and/or KV according to patient size; and use of iterative reconstruction technique. Radiation dose: CTDIvol 28, 28 mGy, DLP 2248 mGy*cm. FINDINGS: Cardiovascular: No evidence of acute or chronic pulmonary emboli identified. Aorta is normal in calib er. Mild scattered calcified plaques of the aortic arch are noted. Retropharyngeal aberrant right sub clavian artery noted The heart is mildly enlarged. Left upper chest wall multi lead pacemaker with le ads extending to the right cardiac chambers. Lungs: Extensive bilateral pulmonary opacities are seen most prominent in the left lower lobe. No ple ural effusion. No pneumothorax. The airways are patent. Thyroid: Unremarkable. Esophagus: Unremarkable. Lymphatics: No hilar or mediastinal lymphadenopathy. Bones/soft tissues: No acute abnormality. Upper abdomen: No acute abnormality. Gallbladder surgically absent. A subcentimeter nonobstructing st one seen in the right kidney. Other: None. IMPRESSION: 1. No pulmonary emboli, aortic aneurysm or dissection. 2. Extensive bilateral pulmonary opacities that may represent pneumonia or edema. No pleural effusion . Mild cardiomegaly noted. Recommend clinical and biochemical correlation.
[2024-03-20] MEDS: methylPREDNISolone SOD SUCC 40 MG/ML VL IV SCH (23:45)
[2024-03-20] MEDS: KETOROLAC TROMETH 30 MG/ML 1ML VIAL IV PRN (23:45)
[2024-03-20] MEDS: ATORVASTATIN 20 MG TAB PO SCH (23:45)
[2024-03-20] MEDS: VANCOMYCIN 1.25GM/250ML 250 ML IV SCH (23:51)
[2024-03-21] VITALS (15 sets, daily range): BP systolic 119–140; BP diastolic 60–86; PULSE 88–109; RESP 16–28; TEMP 98–98.7; O2SAT 85–100
[2024-03-21 06:44] LABS: Alanine Aminotransferase 13 U/L (7-40); Albumin 4.1 g/dL (3.2-4.8); Alkaline Phosphatase 105 U/L (46-116); Anion Gap 9 (5-15); Aspartate Aminotransferase 43 U/L (13-40); BUN/Creatinine Ratio 19.8 (10.0-20.0); Bilirubin, Total 0.4 mg/dL (0.2-1.0); Blood Urea Nitrogen 18 mg/dL (9-23); Calcium 9.7 mg/dL (8.7-10.4); Carbon Dioxide 22 mmol/L (20-31); Chloride 107 mmol/L (98-107); Glucose 187 mg/dL (74-106); Magnesium 2.1 mg/dL (1.6-2.6); Phosphorus 3.1 mg/dL (2.4-5.1); Potassium 3.8 mmol/L (3.5-5.1); Sodium 138 mmol/L (136-145)
[2024-03-21 06:45] LABS: Total Protein 6.7 g/dL (5.7-8.2)
[2024-03-21 07:02] LABS: Basophils # (auto) 0.1 10 ^3/uL (0-0.2); Basophils % (auto) 0.5 % (0.0-2.0); Eosinophils # (auto) 0 10 ^3/uL (0-0.8); Eosinophils % (auto) 0.1 % (0.0-7.0); Hematocrit 36.9 % (36.0-46.0); Hemoglobin 12.3 g/dL (12.2-16.2); Lymphocytes # (auto) 1.2 10 ^3/uL (0.4-5.4); Lymphocytes % (auto) 6.6 % (10.0-50.0); Mean Corpuscular Hemoglobin 32.6 pg (28.0-32.0); Mean Corpuscular Hgb Conc. 33.3 g/dL (32.0-36.0); Mean Corpuscular Volume 97.8 fL (80.0-100.0); Monocytes # (auto) 0.5 10 ^3/uL (0-1.3); Monocytes % (auto) 2.9 % (0.0-12.0); Neutrophils # (auto) 16.1 10 ^3/uL (1.6-8.6); Neutrophils % (auto) 89.9 % (37.0-80.0); Platelet Count (auto) 337 10^3/uL (140-450); Red Blood Cells 3.78 10^6/uL (4.0-5.20); Red Cell Distribution Width 12.8 % (11.8-14.3); White Blood Cell 17.9 10^3/uL (4.4-10.8)
--- NOTE | 2024-03-21 07:12 | DVHPN2 ---
Progress Note - Dictate Date Seen: Mar 21, 2024 Medical Necessity Reason Pt with a Central, PICC or Fol: No vital signs Vital Sign Date Time Temp Pulse Resp B/P (MAP) Pulse Ox O2 Delivery O2 Flow Rate FiO2 03/21/24 06:17 92 20 92 40.0 55 03/20/24 18:00 110/65 (80) 03/20/24 17:39 98.1 98.1 03/20/24 17:39 Hi-Flow Heated NC+ Total Intake and Output 03/20/24 03/20/24 03/21/24 15:00 23:00 07:00 Intake Total 500 ml Balance 500 ml medications Current Medications Medications Dose Ordered Sig/Thomas Route Start Time Stop Time Status Last Admin Dose Admin Acetaminophen 650 mg Q6HP PRN PO 03/19/24 21:00 03/20/24 18:40 650 MG Fluoxetine HCl 60 mg DAILY PO 03/20/24 10:00 03/20/24 10:04 60 MG Diagnostic Test (Pha) 1 strip ACHS 03/19/24 22:00 03/21/24 06:15 1 STRIP Insulin Human Regular ACHS SC 03/19/24 22:00 03/21/24 06:36 3 UNITS Dextrose 50 ml UD PRN IV 03/19/24 21:30 Vancomycin HCl 0 ml @ 0 mls/hr UD IV 03/20/24 09:30 Cefepime HCl 50 ml @ 12.5 mls/hr Q8HR IV 03/20/24 14:00 03/21/24 06:15 12.5 MLS/HR Atorvastatin Calcium 40 mg HS PO 03/20/24 22:00 03/20/24 23:45 40 MG Vancomycin HCl 250 ml @ 200 mls/hr Q12H IV 03/20/24 20:00 03/20/24 23:51 200 MLS/HR Methylprednisolone Sodium Succinate 40 mg BID IV 03/20/24 22:00 03/20/24 23:45 40 MG Ketorolac Tromethamine 15 mg Q6HPRN PRN IV 03/20/24 18:00 03/25/24 17:59 03/20/24 23:45 15 MG Enoxaparin Sodium 40 mg DAILY SC 03/21/24 10:00 laboratory and microbiology Laboratory Tests 03/21/24 05:58 Test 03/21/24 05:58 Range/Units Serum Glucose 187 H 74-106 mg/dL Assessment/Plan Patient was a 53-year-old female who presented with few weeks of shortness of breaths/cough. She did have sick contact at home. Problem worsened and she decided to come to the hospital. In emergency room, oxygen saturation was 77% and was started on high-flow oxygen. Does have history of cardiomyopathy and does have BiV-ICD (Biotronik) implantation from before. Patient was taken to our office as outpatient and cardiology was involved for cardiac aspect of care. Denies chest pains. Denies loss of consciousness. It was of note that the patient decided few years ago to turn off the defibrillator power of the device and uses if as pacemaker. Patient has been on antibiotics as outpatient also. Obese lady. On high-flow oxygen. No JVD. Mucosa is pink and wet. Lungs reveals scattered rhonchi in crackles. Cardiac: Regular, systolic murmur 2/6 and apex is heard. Abdomen is soft. There was no gross mass. There is no hepatomegaly. Extremities do not reveal edema. Dorsalis pedis is 2+ bilateral Past medical history includes diabetes mellitus, obesity, anxiety disorder, depression, heart failure, cardiomyopathy, status post BiV-ICD implantation (Biotronik), status post cholecystectomy, appendectomy and bilateral breast reduction. It was of note that the patient was decided to turn off the defibrillator capacity of the device few years back and continues using it as pacemaker. Echocardiogram (performed in the office) of June 13, 2022 at reported mild concentric left ventricular hypertrophy, ejection fraction 55-60%, mild left atrial enlargement, mild MR/TR and right ventricular systolic pressure of less than 30 mm Hg Echocardiogram of December 04, 2023 had reported ejection fraction of 55%. Nuclear stress test of January 22, 2024 (performed in [facility]) reported ejection fraction 47%, low risk study, anterior wall defect in rest and stress imaging White blood cell: 19.1 - 15.7 - 17.1 - 17.9 D-dimer: 1.12 Creatinine: 0.94 - 0.91 - 0.91 Potassium: 4.3 - 4.2 - 3.8 BNP: 96.47 Troponin (high sensitive): 7 - 7 Urine toxicology was non-revealing Chest x-ray reported: FINDINGS: Lines and Tubes: Anterior fusion lower cervical spine. Pulse generator over place. Lungs: Mildly prominent pulmonary vascular markings. Pleura: No effusion. No pneumothorax. Cardiomediastinal contours: Cardiac size appears enlarged Bones: No acute osseous abnormality. IMPRESSION: 1. Findings may represent congestive failure or pneumonia. CTA of lungs reported: IMPRESSION: 1. No pulmonary emboli, aortic aneurysm or dissection. 2. Extensive bilateral pulmonary opacities that may represent pneumonia or edema. No pleural effusion. Mild cardiomegaly noted. Recommend clinical and biochemical correlation. EKG reveals sinus rhythm Echo reported: Left ventricle: Borderline concentric left ventricular hypertrophy was seen. LVEF was 60-65%. There was no gross wall motion abnormality. Right ventricle was normal sized with normal systolic function. Both atria were mildly dilated. Aortic valve: Aortic valve was trileaflet. There was no aortic insufficiency/stenosis. There was mild mitral/tricuspid regurgitation. Mild mitral annular calcification was seen. Pulmonary valve revealed mild insufficiency. IVC was normal sized with normal respiratory evaluation. Right ventricular systolic pressure was assessed at 28 mm Hg. Patient was a 53-year-old female with history of cardiomyopathy who presented with few weeks of worsening shortness breath and cough. Was found to have low oxygen saturation and is found to have acute respiratory failure. Presentation is more likely in favor of pneumonia/bronchitis. Does have history of heart failure but clinically heart failure is not significantly decompensated. Mild component of acute on chronic heart failure can not be ruled out. Acute respiratory failure Pneumonia, community-acquired Obesity Cardiomyopathy Acute on chonic Diastolic heart failure Status post Bi V ICD implantation (Biotronik) Cardiac suggestion for management: Manage on telemetry Follow up electrolytes and kidney function tests and correct abnormalities Request interrogation of the Biotronik device Evaluation and management of respiratory failure/pneumonia as per primary team Further evaluation and management depends on the above and clinical course A total of 55 minutes was spent reviewing the patient record, examining the patient, making a diagnostic and therapeutic plan, discussing this plan with medical personnel, following up on diagnostic studies and following the patient for clinical stability excluding any and all procedures. At least 50% of this time was spent in direct, [id number] contact. Thank you for allowing me to participate in this patient's care. Further recommendations will depend on patient's clinical course. Please do not hesitate to contact me if you have any questions or concerns. This medical document was created using electronic medical record system with [employer] dictation system. Although this document has been carefully reviewed, there may still be some phonetic and typographical errors. These areas are purely typographical due to the imperfection of the software programs, and do not reflect any compromise in the patient's medical care. Plan discussed with: Patient, Other (nurse) ANTONIETA GREEN MD Mar 21, 2024 07:12
[2024-03-21 07:56] LABS: Base Excess -1.9 mmol/L (-2.0-3.0)
[2024-03-21 09:01] LABS: INR 1.18 (0.9-1.15); Partial Thromboplastin Time 30.2 SEC (24.5-34.5); Prothrombin Time 12.3 sec (9.3-11.8)
[2024-03-21 09:06] LABS: Free T4 (Free Thyroxine) 0.89 ng/dL (0.89-1.76)
[2024-03-21 09:07] LABS: T3 Total 0.8 ng/mL (0.60-1.81)
--- NOTE | 2024-03-21 09:21 | DVH ---
CHEST RADIOGRAPH Indication: Pneumonia vs CHF preogression Technique: Single frontal view of the chest was obtained COMPARISON: None FINDINGS: Lines and Tubes: Left chest wall AICD Lungs: Pulmonary vascular congestion Pleura: No effusion. No pneumothorax. Cardiomediastinal contours: Unremarkable Bones: Unremarkable IMPRESSION: Pulmonary vascular congestion
[2024-03-21] MEDS: ENOXAPARIN SOD 40 MG/0.4 ML SYRINGE SC SCH (10:37)
--- NOTE | 2024-03-21 12:40 | ECG ---
[facility] Test Date: 2024-03-19 Test Time: 18:42:42 Pat Name: ESTRELLA MAGANA Department: ER Room: 0275T Gender: F Clinical Data Specialist: BILLY : 1970 Requested By: ANASTASIA CHACON Order Number: [id number] Reading MD: Tyrese Avendano Measurements Intervals [place] Rate: 113 P: 48 SC: 92 QRS: -88 QRSD: 177 T: 58 QT: 402 QTc: 552 Interpretive Statements Atrial-sensed ventricular-paced rhythm No further analysis attempted due to paced rhythm Artifact in lead(s) I,II,III,aVR,aVL and baseline wander in lead(s) V1 Electronically Signed On 03-24-2024 8:19:41 PST by Tyrese Avendano Please click the below link to view image of tracing.
--- NOTE | 2024-03-21 14:11 | DVHPNRES ---
Progress Note Date Seen: Mar 21, 2024 Resident Creating Document: BETTY YOST RESIDENT Medical Necessity Reason Pt with a Central, PICC or Fol: No Subjective Review of Systems Taylor Coleman is a 53-year-old female who presented to the ED due to progressive dyspnea from functional class I to functional class IV in the past 3 weeks, associated with dry cough and lightheadedness. Patient reports presenting upper respiratory infection which started three weeks ago, he got better but she has been getting progressively worse prompting her visit to the ED. The patient also reported that she went to the urgent care in the past weekend and was prescribed corticosteroids and sent home. When patient arrived to the ED she was saturating 75% in room air with requirement of oxygen therapy with non-rebreather mask. Denies fever, chills, chest pain, palpitation, syncope, nausea, vomiting, diarrhea, recent travel and motor or sensory deficits. Past medical history: Dyslipidemia, obesity, diabetes, history of cardiomyopathy with HFrEF which is improved (per patient previous LVEF 20%, currently 55%) status post COSTUME DRAPER-D (Biotronik) which defibrillator currently deactivated and only has pacing mechanism, anxiety, depression, stress test on January 25, 2024 low risk study (per sex offender treatment professional) Surgical history: Three fusions of the cervical vertebra, to fusion of the lumbar vertebra, cholecystectomy 20 years ago, appendectomy when patient was a child, bilateral breast reduction, COSTUME DRAPER-D (no atrial lead) placed in 2019 Family history: Noncontributory Social history: Lives with family in [place]. Recently quit smoking tobacco three weeks ago (30 pack-year history of smoking). Denies current alcohol and other drug abuse. Home Medications: Ozempic 1 mg once a week, pravastatin 40 mg daily, fenofibrate 124 mg daily, Entresto 24-26 mg one tab b.i.d., carvedilol 25 mg daily, fluoxetine 60 mg daily. Patient stated that her sex offender treatment professional Dr. Wiley Patient seen and examined at bedside. Currently requiring high-flow oxygen therapy with mild dyspnea, going down on oxygen requirement (FIO 55%), she is ALFRED status. Has cervical spine pain. Objective vital signs Vital Sign Date Time Temp Pulse Resp B/P (MAP) Pulse Ox O2 Delivery O2 Flow Rate FiO2 03/21/24 13:43 99 22 94 45.0 45 03/21/24 13:15 133/71 (91) 03/21/24 07:15 98.2 98.2 03/20/24 20:00 Oxymizer Total Intake and Output 03/20/24 03/20/24 03/21/24 15:00 23:00 07:00 Intake Total 500 ml 380 ml Balance 500 ml 380 ml medications Current Medications Medications Dose Ordered Sig/Thomas Route Start Time Stop Time Status Last Admin Dose Admin Acetaminophen 650 mg Q6HP PRN PO 03/19/24 21:00 03/20/24 18:40 650 MG Fluoxetine HCl 60 mg DAILY PO 03/20/24 10:00 03/21/24 10:37 60 MG Diagnostic Test (Pha) 1 strip ACHS 03/19/24 22:00 03/21/24 11:30 1 STRIP Insulin Human Regular ACHS SC 03/19/24 22:00 03/21/24 06:36 3 UNITS Dextrose 50 ml UD PRN IV 03/19/24 21:30 Vancomycin HCl 0 ml @ 0 mls/hr UD IV 03/20/24 09:30 Cefepime HCl 50 ml @ 12.5 mls/hr Q8HR IV 03/20/24 14:00 03/21/24 06:15 12.5 MLS/HR Atorvastatin Calcium 40 mg HS PO 03/20/24 22:00 03/20/24 23:45 40 MG Vancomycin HCl 250 ml @ 200 mls/hr Q12H IV 03/20/24 20:00 03/21/24 08:16 200 MLS/HR Methylprednisolone Sodium Succinate 40 mg BID IV 03/20/24 22:00 03/21/24 10:36 40 MG Ketorolac Tromethamine 15 mg Q6HPRN PRN IV 03/20/24 18:00 03/25/24 17:59 03/21/24 10:37 15 MG Enoxaparin Sodium 40 mg DAILY SC 03/21/24 10:00 03/21/24 10:37 40 MG Examination Patient lying in bed, in no acute distress General: Lucid, afebrile, mucosae are moist Cardiovascular: Tachycardia. Normal S1 and S2. No murmurs, gallops or rubs, no JVD. Respiratory: Tachypneic, regular ventilation mechanics, no use of accessory muscles of breathing at this moment. Mild rales on right hemithorax base. Abdomen: Soft, nontender, no organomegaly, normal bowel sounds MSK/skin: Mobilizes 4 limbs. Skin is dry and warm. Mild perimalleolar pitting edema Neurological: Oriented in 3 spheres. No motor no sensitive deficits. Pupils are isocoric and reactive laboratory and microbiology Laboratory Tests 03/21/24 05:58 Test 03/21/24 05:58 Range/Units Serum Glucose 187 H 74-106 mg/dL Microbiology Date/Time Source Procedure Growth Status 03/20/24 07:40 Blood Blood Culture - Preliminary NO GROWTH AFTER 24 HOURS OF INCUBATION. Resulted 03/20/24 04:02 Nose MRSA Screen - Final Complete 03/19/24 23:00 Voided Urine Urine Culture - Preliminary Resulted Problem List/Assessment/Plan Problem List/Assessment/Plan # Acute hypoxic respiratory failure likely due to Gram-positive/Gram-negative bacterial pneumonia/typical pneumonia versus acute on chronic diastolic congestive heart failure Currently on oxygen therapy with high-flow at 55% FiO2. Patient has ALFRED status # Probable Gram-positive/Gram-negative bacterial pneumonia Currently under empiric IV antibiotic (cefepime and vancomycin, previously on azithromycin and ceftriaxone) Ordered cultures (blood, urine and sputum) and MRSA, pending COVID and influenza negative # Possible acute on chronic systolic/diastolic heart failure exacerbation - status post COSTUME DRAPER-D placement Patient has history of improved HFrEF (LVEF from 20% to 55%) Patient received IV diuretics on admission, currently discontinued diuretics. She is status post COSTUME DRAPER-D, currently only in pacemaker mode (defibrillation was turned off due to modified DNR) Echocardiogram: Concentric LVH, LVEF 60-65%, no gross mole motion abnormality, bilateral atrial mild dilation, mild MR and TR, RVSP 28 mmHg, IVC normal size Troponin and BNP negative. Discontinued GDMT at this point due to soft blood pressures, discontinue diuretics due to dry mucous membranes. Patient does not have atrial lead, EKG shows atrial activity and spike before QRS complex (questionable pacemaker syndrome). Have ordered cardiac device interrogation. Cardiology was consulted Last nuclear test reported ejection fraction 47%, low risk study, anterior wall defect in rest and stress imaging # Ruled out pulmonary embolism Positive D-dimer, ordered angio CT, negative for PE, extensive bilateral edema (pneumonia versus edema) Discontinued heparin drip A-a Gradient 17 mmHg adjusted to age (increased) # Type 2 diabetes mellitus - Controlled (hemoglobin A1c 5.9%) Mild sliding scale insulin # Dyslipidemia Currently on atorvastatin 40 mg daily # History of anxiety and depression Resume home fluoxetine 60 mg daily Critical care time spent including discussion with nursing and family: 62 minutes Goals of care discussed with the patient and at bedside for >25min: Modified DNR/DNI (no chest compression, intubation nor defibrillation) Plan discussed with Dr. Hunt, patient and nurses: Patient currently ALFRED status due to requirement of high-flow oxygen therapy. Currently under empiric IV antibiotic (cefepime and vancomycin), IV steroids, bronchodilators, discontinued IV diuretics (mucous membranes dry, no JVD) and heparin drip, ordered cardiac device interrogation. Patient has poor prognosis. Plan discussed with: Patient, Spouse, Other (Nurses) My Orders My Orders Orders - BETTY YOST RESIDENT Procedure Category Date Status Time Methylprednisolone PHA 03/20/24 In Process Sod Succ (Solu Medrol 22:00 Ketorolac Injection PHA 03/20/24 In Process (Toradol Injection) 18:00 Abg W/ Co-Ox RT 03/21/24 Logged 04:00 Heparin Per Pharmacy [facility] 03/21/24 In Process Protocol 00:30 Code Status CODE 03/20/24 Transmitted 20:17 DNR [facility] 03/20/24 In Process 20:17 Chest Xray 1 View XY 03/21/24 Resulted 07:47 Chest Xray 1 View XY 03/22/24 Logged 05:00 Chest Xray 1 View XY 03/23/24 Logged 05:00 Chest Xray 1 View XY 03/24/24 Logged 05:00 Chest Xray 1 View XY 03/25/24 Logged 05:00 Chest Xray 1 View XY 03/26/24 Logged 05:00 Chest Xray 1 View XY 03/27/24 Logged 05:00 Chest Xray 1 View XY 03/28/24 Logged 05:00 Chest Xray 1 View XY 03/29/24 Logged 05:00 Chest Xray 1 View XY 03/30/24 Logged 05:00 Chest Xray 1 View XY 03/31/24 Logged 05:00 Date of Service: Mar 21, 2024 Billing Provider: EARLENE HUNT MD Common Visit Codes: [id number] INP/OBS CARE(HIGH) BETTY YOST Mar 21, 2024 14:11 EARLENE HUNT MD Mar 25, 2024 16:03
[2024-03-21] MEDS: IPRATROPIUM BROM 0.5 MG/2.5ML INH SOL NEB SCH (20:01)
[2024-03-21] MEDS: LEVALBUTEROL HCL 1.25 MG/3 ML NEB NEB SCH (20:01)
[2024-03-22] VITALS (32 sets, daily range): BP systolic 118–161; BP diastolic 67–93; PULSE 70–104; RESP 16–34; TEMP 97.9–98.9; O2SAT 83–96
[2024-03-22] MEDS: TROLAMINE SALICYLATE 10% TOP CREAM TOP SCH
[2024-03-22 05:49] LABS: Hematocrit 36.8 % (36.0-46.0); Hemoglobin 12.4 g/dL (12.2-16.2); Mean Corpuscular Hemoglobin 32.7 pg (28.0-32.0); Mean Corpuscular Hgb Conc. 33.6 g/dL (32.0-36.0); Mean Corpuscular Volume 97.2 fL (80.0-100.0); Platelet Count (auto) 341 10^3/uL (140-450); Red Blood Cells 3.79 10^6/uL (4.0-5.20); Red Cell Distribution Width 12.7 % (11.8-14.3)
[2024-03-22 05:52] LABS: Potassium 4.3 mmol/L (3.5-5.1); Sodium 139 mmol/L (136-145)
[2024-03-22 05:53] LABS: Anion Gap 7 (5-15); Carbon Dioxide 24 mmol/L (20-31)
[2024-03-22 05:54] LABS: Calcium 9.8 mg/dL (8.7-10.4)
[2024-03-22 05:57] LABS: Basophils % (manual) 0 (0.0-2.0); Blast Cells 0; Eosinophils % (manual) 0 (0-7); Metamyelocytes % 0; Myelocytes % 0; Promyelocytes % 0; Reactive Lymphocytes 0
[2024-03-22 05:59] LABS: BUN/Creatinine Ratio 29.5 (10.0-20.0)
[2024-03-22 06:01] LABS: Blood Urea Nitrogen 26 mg/dL (9-23); Chloride 108 mmol/L (98-107); Glucose 157 mg/dL (74-106)
[2024-03-22 06:44] LABS: Band Neutrophils % (manual) 2; Lymphocytes % (manual) 7 (10.0-50.0); Monocytes % (manual) 4 (0-12)
[2024-03-22 06:45] LABS: Platelet Estimate Adequate
--- NOTE | 2024-03-22 06:57 | DVH ---
CHEST RADIOGRAPH Indication: Pneumonia vs CHF progression Technique: Single frontal view of the chest was obtained Comparison: XY CHEST XRAY 1 VIEW on DOS: 03/21/24 IMPRESSION: The heart is enlarged with dual lead left cardiac device. Moderate pulmonary vascular congestion inc reased. No sizable effusion or pneumothorax. Cervical spine hardware is noted.
[2024-03-22] MEDS: SODIUM CHLORIDE 0.9% 1,000 ML IV SCH (08:30)
--- NOTE | 2024-03-22 12:09 | DVHPN2 ---
Progress Note - Dictate Date Seen: Mar 22, 2024 Medical Necessity Reason Pt with a Central, PICC or Fol: No vital signs Vital Sign Date Time Temp Pulse Resp B/P (MAP) Pulse Ox O2 Delivery O2 Flow Rate FiO2 03/22/24 11:00 88 20 141/77 (98) 93 03/22/24 10:41 40.0 40 03/22/24 08:00 Hi-Flow Heated NC+ 03/22/24 08:00 98.2 98.2 Total Intake and Output 03/21/24 03/21/24 03/22/24 15:00 23:00 07:00 Intake Total 300.0 ml 300.0 ml 450 ml Balance 300.0 ml 300.0 ml 450 ml medications Current Medications Medications Dose Ordered Sig/Thomas Route Start Time Stop Time Status Last Admin Dose Admin Acetaminophen 650 mg Q6HP PRN PO 03/19/24 21:00 03/20/24 18:40 650 MG Fluoxetine HCl 60 mg DAILY PO 03/20/24 10:00 03/22/24 10:36 60 MG Diagnostic Test (Pha) 1 strip ACHS 03/19/24 22:00 03/22/24 06:15 1 STRIP Insulin Human Regular ACHS SC 03/19/24 22:00 03/22/24 06:14 2 UNITS Dextrose 50 ml UD PRN IV 03/19/24 21:30 Vancomycin HCl 0 ml @ 0 mls/hr UD IV 03/20/24 09:30 Cefepime HCl 50 ml @ 12.5 mls/hr Q8HR IV 03/20/24 14:00 03/22/24 06:11 12.5 MLS/HR Atorvastatin Calcium 40 mg HS PO 03/20/24 22:00 03/21/24 22:04 40 MG Vancomycin HCl 250 ml @ 200 mls/hr Q12H IV 03/20/24 20:00 03/22/24 08:25 200 MLS/HR Methylprednisolone Sodium Succinate 40 mg BID IV 03/20/24 22:00 03/22/24 10:35 40 MG Ketorolac Tromethamine 15 mg Q6HPRN PRN IV 03/20/24 18:00 03/25/24 17:59 03/21/24 10:37 15 MG Enoxaparin Sodium 40 mg DAILY SC 03/21/24 10:00 03/22/24 10:35 40 MG Trolamine Salicylate 1 applic Q6HP TOP 03/21/24 18:00 Ipratropium [place] 0.5 mg Q6HWA [facility] 03/21/24 18:00 03/22/24 11:19 0.5 MG Levalbuterol HCl 0.625 mg Q6HR [facility] 03/21/24 18:00 03/22/24 11:19 0.625 MG Sodium Chloride 1,000 ml @ 125 mls/hr Q8H IV 03/22/24 08:30 laboratory and microbiology Laboratory Tests 03/22/24 05:30 Test 03/22/24 05:30 Range/Units Serum Glucose 157 H 74-106 mg/dL Assessment/Plan Patient was a 53-year-old female who presented with few weeks of shortness of breaths/cough. She did have sick contact at home. Problem worsened and she decided to come to the hospital. In emergency room, oxygen saturation was 77% and was started on high-flow oxygen. Does have history of cardiomyopathy and does have BiV-ICD (Biotronik) implantation from before. Patient was taken to our office as outpatient and cardiology was involved for cardiac aspect of care. Denies chest pains. Denies loss of consciousness. It was of note that the patient decided few years ago to turn off the defibrillator power of the device and uses if as pacemaker. Patient has been on antibiotics as outpatient also. Obese lady. On high-flow oxygen. No JVD. Mucosa is pink and wet. Lungs reveals scattered rhonchi in crackles. Cardiac: Regular, systolic murmur 2/6 and apex is heard. Abdomen is soft. There was no gross mass. There is no hepatomegaly. Extremities do not reveal edema. Dorsalis pedis is 2+ bilateral Past medical history includes diabetes mellitus, obesity, anxiety disorder, depression, heart failure, cardiomyopathy, status post BiV-ICD implantation (Biotronik), status post cholecystectomy, appendectomy and bilateral breast reduction. It was of note that the patient was decided to turn off the defibrillator capacity of the device few years back and continues using it as pacemaker. Echocardiogram (performed in the office) of June 13, 2022 at reported mild concentric left ventricular hypertrophy, ejection fraction 55-60%, mild left atrial enlargement, mild MR/TR and right ventricular systolic pressure of less than 30 mm Hg Echocardiogram of December 04, 2023 had reported ejection fraction of 55%. Nuclear stress test of January 22, 2024 (performed in [facility]) reported ejection fraction 47%, low risk study, anterior wall defect in rest and stress imaging White blood cell: 19.1 - 15.7 - 17.1 - 17.9 - 17.0 D-dimer: 1.12 Creatinine: 0.94 - 0.91 - 0.91 - 0.88 Potassium: 4.3 - 4.2 - 3.8 - 4.3 BNP: 96.47 Troponin (high sensitive): 7 - 7 Beta HC.1 Urine toxicology was non-revealing Chest x-ray reported: FINDINGS: Lines and Tubes: Anterior fusion lower cervical spine. Pulse generator over place. Lungs: Mildly prominent pulmonary vascular markings. Pleura: No effusion. No pneumothorax. Cardiomediastinal contours: Cardiac size appears enlarged Bones: No acute osseous abnormality. IMPRESSION: 1. Findings may represent congestive failure or pneumonia. Repeat chest xry reported: IMPRESSION: Pulmonary vascular congestion Repeat chest xry reported: IMPRESSION: The heart is enlarged with dual lead left cardiac device. Moderate pulmonary vascular congestion increased. No sizable effusion or pneumothorax. Cervical spine hardware is noted. CTA of lungs reported: IMPRESSION: 1. No pulmonary emboli, aortic aneurysm or dissection. 2. Extensive bilateral pulmonary opacities that may represent pneumonia or edema. No pleural effusion. Mild cardiomegaly noted. Recommend clinical and biochemical correlation. EKG reveals sinus rhythm Echo reported: Left ventricle: Borderline concentric left ventricular hypertrophy was seen. LVEF was 60-65%. There was no gross wall motion abnormality. Right ventricle was normal sized with normal systolic function. Both atria were mildly dilated. Aortic valve: Aortic valve was trileaflet. There was no aortic insufficiency/stenosis. There was mild mitral/tricuspid regurgitation. Mild mitral annular calcification was seen. Pulmonary valve revealed mild insufficiency. IVC was normal sized with normal respiratory evaluation. Right ventricular systolic pressure was assessed at 28 mm Hg. Patient was a 53-year-old female with history of cardiomyopathy who presented with few weeks of worsening shortness breath and cough. Was found to have low oxygen saturation and is found to have acute respiratory failure. Presentation is more likely in favor of pneumonia/bronchitis. Does have history of heart failure but clinically heart failure is not significantly decompensated. Mild component of acute on chronic heart failure can not be ruled out. Acute respiratory failure Pneumonia, community-acquired Obesity Cardiomyopathy Acute on chonic Diastolic heart failure Status post BiV ICD implantation (Biotronik) Cardiac suggestion for management: Manage in ALFRED Follow up electrolytes and kidney function tests and correct abnormalities Request interrogation of the Biotronik device Evaluation and management of respiratory failure/pneumonia as per primary team Evaluation and management of minimal increase Beta HCG as per primary team. Consider Athletic Coach evaluation. Further evaluation and management depends on the above and clinical course A total of 75 minutes was spent reviewing the patient record, examining the patient, making a diagnostic and therapeutic plan, discussing this plan with medical personnel, following up on diagnostic studies and following the patient for clinical stability excluding any and all procedures. At least 50% of this time was spent in direct, [id number] contact. Thank you for allowing me to participate in this patient's care. Further recommendations will depend on patient's clinical course. Please do not hesitate to contact me if you have any questions or concerns. This medical document was created using electronic medical record system with [employer] computerized dictation system. Although this document has been carefully reviewed, there may still be some phonetic and typographical errors. These areas are purely typographical due to the imperfection of the software programs, and do not reflect any compromise in the patient's medical care. Plan discussed with: Patient, Other (nurse) ANTONIETA GREEN MD Mar 22, 2024 12:08
--- NOTE | 2024-03-22 14:17 | DVH ---
EXAM: US PELVIC CLINICAL HISTORY: ELEVATED HCG, UNKNOWN REASON TECHNIQUE: Transabdominal ultrasound of the pelvis with color Doppler flow as clinically indicated. COMPARISON: None Findings: Same-day quantitative beta-hCG is 8.1. Uterus measures 8.2 x 2.9 x 3.3 cm in size with relatively homogeneous echotexture and normal contour s. Endometrial thickness measures 0.2 cm with smooth contour. Cervix appears grossly unremarkable. Right ovary measures 2.6 x 1.1 x 1.6 cm. Left ovary not visualized. Normal right ovarian color Doppl er flow. No free fluid in the cul-de-sac. Impression: 1. Uterus grossly unremarkable with endometrial thickness of 0.2 cm. Given elevated beta HCG and hansa ent is postmenopausal, recommend contrast enhanced MRI for further evaluation. 2. Right ovary is within normal limits with normal color flow.
[2024-03-22 15:12] LABS: Base Excess -1.9 mmol/L (-2.0-3.0)
[2024-03-22] MEDS ORDERED: PRAV20TA3 PO (16:55)
[2024-03-22] MEDS ORDERED: IVAB1.7T PO (17:12)
[2024-03-22] MEDS ORDERED: OXYC-963 PO (17:12)
[2024-03-22] MEDS ORDERED: CYCL-839 PO (17:12)
[2024-03-22] MEDS ORDERED: BUPR150T8 PO (17:12)
[2024-03-22] MEDS ORDERED: CARV25TA55 PO (17:12)
[2024-03-22] MEDS ORDERED: SACU1TAB PO (17:12)
[2024-03-22] MEDS ORDERED: FLUO-125 PO (17:12)
[2024-03-22] MEDS ORDERED: ARIP2TAB PO (17:12)
[2024-03-22] MEDS ORDERED: MEMA1TAB5 PO (17:12)
[2024-03-22] MEDS ORDERED: CARV12.544 PO (17:12)
[2024-03-22] MEDS ORDERED: GABA-1250 PO (17:12)
[2024-03-22] MEDS ORDERED: ZOLP10TA PO (17:12)
[2024-03-22] MEDS ORDERED: FENO145T27 PO (17:12)
--- NOTE | 2024-03-22 18:49 | DVHPNRES ---
Progress Note Date Seen: Mar 22, 2024 Resident Creating Document: BETTY YOST RESIDENT Medical Necessity Reason Pt with a Central, PICC or Fol: No Subjective Review of Systems Taylor Coleman is a 53-year-old female who presented to the ED due to progressive dyspnea from functional class I to functional class IV in the past 3 weeks, associated with dry cough and lightheadedness. Patient reports presenting upper respiratory infection which started three weeks ago, he got better but she has been getting progressively worse prompting her visit to the ED. The patient also reported that she went to the urgent care in the past weekend and was prescribed corticosteroids and sent home. When patient arrived to the ED she was saturating 75% in room air with requirement of oxygen therapy with non-rebreather mask. Denies fever, chills, chest pain, palpitation, syncope, nausea, vomiting, diarrhea, recent travel and motor or sensory deficits. Past medical history: Dyslipidemia, obesity, diabetes, history of cardiomyopathy with HFrEF which is improved (per patient previous LVEF 20%, currently 55%) status post CONVEYANCER-D (Biotronik) which defibrillator currently deactivated and only has pacing mechanism, anxiety, depression, stress test on January 25, 2024 low risk study (per cat dog or other pet groomer) Surgical history: Three fusions of the cervical vertebra, to fusion of the lumbar vertebra, cholecystectomy 20 years ago, appendectomy when patient was a child, bilateral breast reduction, CONVEYANCER-D (no atrial lead) placed in 2019 Family history: Noncontributory Social history: Lives with [place] in [place]. Recently quit smoking tobacco three weeks ago (30 pack-year history of smoking). Denies current alcohol and other drug abuse. Home Medications: Ozempic 1 mg once a week, pravastatin 40 mg daily, fenofibrate 124 mg daily, Entresto 24-26 mg one tab b.i.d., carvedilol 25 mg daily, fluoxetine 60 mg daily. Patient stated that her cat dog or other pet groomer Dr. Wiley Patient seen and examined at bedside. Currently requiring high-flow oxygen therapy with mild dyspnea, going down on oxygen requirement (FIO 45%), she is ALFRED status. Has cervical spine pain. Objective vital signs Vital Sign Date Time Temp Pulse Resp B/P (MAP) Pulse Ox O2 Delivery O2 Flow Rate FiO2 03/22/24 18:01 78 34 152/82 (105) 83 03/22/24 16:00 98.9 98.9 03/22/24 14:09 35.0 35 03/22/24 08:00 Hi-Flow Heated NC+ Total Intake and Output 03/21/24 03/21/24 03/22/24 15:00 23:00 07:00 Intake Total 300.0 ml 300.0 ml 450 ml Balance 300.0 ml 300.0 ml 450 ml medications Current Medications Medications Dose Ordered Sig/Thomas Route Start Time Stop Time Status Last Admin Dose Admin Acetaminophen 650 mg Q6HP PRN PO 03/19/24 21:00 03/20/24 18:40 650 MG Fluoxetine HCl 60 mg DAILY PO 03/20/24 10:00 03/22/24 10:36 60 MG Diagnostic Test (Pha) 1 strip ACHS 03/19/24 22:00 03/22/24 17:36 1 STRIP Insulin Human Regular ACHS SC 03/19/24 22:00 03/22/24 17:39 2 UNITS Dextrose 50 ml UD PRN IV 03/19/24 21:30 Vancomycin HCl 0 ml @ 0 mls/hr UD IV 03/20/24 09:30 Cefepime HCl 50 ml @ 12.5 mls/hr Q8HR IV 03/20/24 14:00 03/22/24 14:59 12.5 MLS/HR Atorvastatin Calcium 40 mg HS PO 03/20/24 22:00 03/21/24 22:04 40 MG Vancomycin HCl 250 ml @ 200 mls/hr Q12H IV 03/20/24 20:00 03/22/24 08:25 200 MLS/HR Methylprednisolone Sodium Succinate 40 mg BID IV 03/20/24 22:00 03/22/24 10:35 40 MG Ketorolac Tromethamine 15 mg Q6HPRN PRN IV 03/20/24 18:00 03/25/24 17:59 03/21/24 10:37 15 MG Enoxaparin Sodium 40 mg DAILY SC 03/21/24 10:00 03/22/24 10:35 40 MG Trolamine Salicylate 1 applic Q6HP TOP 03/21/24 18:00 03/22/24 15:00 1 APPLIC Ipratropium [place] 0.5 mg Q6HWA NEB 03/21/24 18:00 03/22/24 11:19 0.5 MG Levalbuterol HCl 0.625 mg Q6HR NEB 03/21/24 18:00 03/22/24 11:19 0.625 MG Sodium Chloride 1,000 ml @ 125 mls/hr Q8H IV 03/22/24 08:30 03/22/24 15:09 125 MLS/HR Examination Patient lying in bed, in no acute distress General: Lucid, afebrile, mucosae are moist Cardiovascular: Tachycardia. Normal S1 and S2. No murmurs, gallops or rubs, no JVD. Respiratory: Tachypneic, regular ventilation mechanics, no use of accessory muscles of breathing at this moment. Mild rales on right hemithorax base. Currently on high-flow (FiO2 45%, 45 liters/minute) Abdomen: Soft, nontender, no organomegaly, normal bowel sounds MSK/skin: Mobilizes 4 limbs. Skin is dry and warm. Mild perimalleolar pitting edema Neurological: Oriented in 3 spheres. No motor no sensitive deficits. Pupils are isocoric and reactive laboratory and microbiology Laboratory Tests 03/22/24 05:30 Test 03/22/24 05:30 Range/Units Serum Glucose 157 H 74-106 mg/dL Microbiology Date/Time Source Procedure Growth Status 03/20/24 07:40 Blood Blood Culture - Preliminary NO GROWTH AFTER 48 HOURS OF INCUBATION. Resulted 03/20/24 04:02 Nose MRSA Screen - Final Complete 03/19/24 23:00 Voided Urine Urine Culture - Final Complete Problem List/Assessment/Plan Problem List/Assessment/Plan # Acute hypoxic respiratory failure likely due to Gram-positive/Gram-negative bacterial pneumonia/typical pneumonia versus acute on chronic diastolic congestive heart failure Currently on oxygen therapy with high-flow at 45% FiO2, inhaled bronchodilator and IV steroids (40 mg IV b.i.d.) Patient in ALFRED status # Probable Gram-positive/Gram-negative bacterial pneumonia Currently under empiric IV antibiotic (cefepime and vancomycin, previously on azithromycin and ceftriaxone) Ordered cultures (blood, urine and sputum) and MRSA, pending COVID and influenza negative # Possible acute on chronic systolic/diastolic heart failure exacerbation - status post CONVEYANCER-D placement Patient has history of improved HFrEF (LVEF from 20% to 55%) Patient received IV diuretics on admission, currently discontinued diuretics. She is status post CONVEYANCER-D, currently only in pacemaker mode (defibrillation was turned off due to modified DNR) Echocardiogram: Concentric LVH, LVEF 60-65%, no gross mole motion abnormality, bilateral atrial mild dilation, mild MR and TR, RVSP 28 mmHg, IVC normal size Troponin and BNP negative. Discontinued GDMT at this point due to soft blood pressures, discontinue diuretics due to dry mucous membranes. Patient does not have atrial lead, EKG shows atrial activity and spike before QRS complex (questionable pacemaker syndrome). Have ordered cardiac device interrogation. Cardiology was consulted Last nuclear test reported ejection fraction 47%, low risk study, anterior wall defect in rest and stress imaging # Ruled out pulmonary embolism Positive D-dimer, ordered angio CT, negative for PE, extensive bilateral edema (pneumonia versus edema) Discontinued heparin drip A-a Gradient 17 mmHg adjusted to age (increased) # Type 2 diabetes mellitus - Controlled (hemoglobin A1c 5.9%) Mild sliding scale insulin # Dyslipidemia Currently on atorvastatin 40 mg daily # History of anxiety and depression Resume home fluoxetine 60 mg daily # Mildly thickened endometrium in postmenopausal woman Beta hCG mildly elevated (eight) and mildly engrossed endometrium (0.2 cm) on pelvic ultrasound. We will evaluate to complete MRI once patient is more stabilized and not requiring high-flow Critical care time spent including discussion with nursing and family: 62 minutes Goals of care discussed with the patient and at bedside for >25min: Modified DNR/DNI (no chest compression, intubation nor defibrillation) Plan discussed with Dr. Mock, patient and nurses: Patient currently ALFRED status due to requirement of high-flow oxygen therapy. Currently under empiric IV antibiotic (cefepime and vancomycin), IV steroids, bronchodilators, discontinued IV diuretics (mucous membranes dry, no JVD) and heparin drip, ordered cardiac device interrogation. Patient has poor prognosis. Plan discussed with: Patient, Spouse, Other (Nurses) My Orders My Orders Orders - BETTY YOST RESIDENT Procedure Category Date Status Time Sodium Chloride 0.9% PHA 03/22/24 In Process 08:30 Sputum Induction RT 03/22/24 Logged 08:25 Respiratory Culture KEITH 03/22/24 Logged W/ Gs 08:25 Pelvic US 03/22/24 Resulted 13:31 Date of Service: Mar 22, 2024 Billing Provider: RUBI MOCK MD Common Visit Codes: [id number] INP/OBS CARE(HIGH) BETTY YOST RESIDENT Mar 22, 2024 18:49 RUBI MOCK MD Mar 23, 2024 09:24
[2024-03-23] VITALS (26 sets, daily range): BP systolic 123–164; BP diastolic 64–84; PULSE 60–112; RESP 12–31; TEMP 97.6–98.9; O2SAT 90–98
--- NOTE | 2024-03-23 05:34 | DVH ---
CHEST RADIOGRAPH Indication: Pneumonia vs CHF preogression Technique: Single frontal view of the chest was obtained Comparison: XY CHEST XRAY 1 VIEW on DOS: 03/22/24, XY CHEST XRAY 1 VIEW on DOS: 03/21/24 IMPRESSION: The heart is enlarged with a multi lead left cardiac device. Interstitial and alveolar opacities with moderate pulmonary vascular congestion appear similar. No sizable effusion or pneumothorax. Cervica l fusion hardware.
[2024-03-23 06:28] LABS: Basophils # (auto) 0.1 10 ^3/uL (0-0.2); Basophils % (auto) 0.5 % (0.0-2.0); Eosinophils # (auto) 0 10 ^3/uL (0-0.8); Hematocrit 37.3 % (36.0-46.0); Hemoglobin 12.6 g/dL (12.2-16.2); Lymphocytes # (auto) 1.1 10 ^3/uL (0.4-5.4); Lymphocytes % (auto) 9.3 % (10.0-50.0); Mean Corpuscular Hemoglobin 32.7 pg (28.0-32.0); Mean Corpuscular Hgb Conc. 33.7 g/dL (32.0-36.0); Mean Corpuscular Volume 97.2 fL (80.0-100.0); Monocytes # (auto) 0.6 10 ^3/uL (0-1.3); Monocytes % (auto) 4.7 % (0.0-12.0); Neutrophils # (auto) 10.1 10 ^3/uL (1.6-8.6); Neutrophils % (auto) 85.5 % (37.0-80.0); Platelet Count (auto) 314 10^3/uL (140-450); Red Blood Cells 3.84 10^6/uL (4.0-5.20); Red Cell Distribution Width 12.8 % (11.8-14.3); White Blood Cell 11.8 10^3/uL (4.4-10.8)
[2024-03-23 06:37] LABS: Anion Gap 10 (5-15); Carbon Dioxide 21 mmol/L (20-31); Chloride 108 mmol/L (98-107); Potassium 4.4 mmol/L (3.5-5.1); Sodium 139 mmol/L (136-145)
[2024-03-23 06:38] LABS: Calcium 9.2 mg/dL (8.7-10.4)
[2024-03-23 06:43] LABS: BUN/Creatinine Ratio 28.6 (10.0-20.0)
[2024-03-23 06:44] LABS: Magnesium 2.1 mg/dL (1.6-2.6)
[2024-03-23 06:46] LABS: Phosphorus 4.2 mg/dL (2.4-5.1)
[2024-03-23 06:48] LABS: Blood Urea Nitrogen 26 mg/dL (9-23); Glucose 148 mg/dL (74-106)
--- NOTE | 2024-03-23 08:04 | DVHPN2 ---
Progress Note - Dictate Date Seen: Mar 23, 2024 Medical Necessity Reason Pt with a Central, PICC or Fol: No vital signs Vital Sign Date Time Temp Pulse Resp B/P (MAP) Pulse Ox O2 Delivery O2 Flow Rate FiO2 03/23/24 07:32 92 Oxymizer 6.0 03/23/24 07:32 60 20 03/23/24 07:32 N/A 03/23/24 06:00 164/84 (110) 03/23/24 04:00 97.7 97.7 Total Intake and Output 03/22/24 03/22/24 03/23/24 15:00 23:00 07:00 Intake Total 1060 ml 1280.0 ml 450 ml Output Total 600 ml 525 ml Balance 460 ml 755.0 ml 450 ml medications Current Medications Medications Dose Ordered Sig/Thomas Route Start Time Stop Time Status Last Admin Dose Admin Acetaminophen 650 mg Q6HP PRN PO 03/19/24 21:00 03/20/24 18:40 650 MG Fluoxetine HCl 60 mg DAILY PO 03/20/24 10:00 03/22/24 10:36 60 MG Diagnostic Test (Pha) 1 strip ACHS 03/19/24 22:00 03/22/24 22:03 1 STRIP Insulin Human Regular ACHS SC 03/19/24 22:00 03/23/24 06:05 2 UNITS Dextrose 50 ml UD PRN IV 03/19/24 21:30 Vancomycin HCl 0 ml @ 0 mls/hr UD IV 03/20/24 09:30 Cefepime HCl 50 ml @ 12.5 mls/hr Q8HR IV 03/20/24 14:00 03/23/24 05:11 12.5 MLS/HR Atorvastatin Calcium 40 mg HS PO 03/20/24 22:00 03/22/24 22:18 40 MG Vancomycin HCl 250 ml @ 200 mls/hr Q12H IV 03/20/24 20:00 03/22/24 20:23 200 MLS/HR Methylprednisolone Sodium Succinate 40 mg BID IV 03/20/24 22:00 03/22/24 22:18 40 MG Ketorolac Tromethamine 15 mg Q6HPRN PRN IV 03/20/24 18:00 03/25/24 17:59 03/23/24 03:41 15 MG Enoxaparin Sodium 40 mg DAILY SC 03/21/24 10:00 03/22/24 10:35 40 MG Trolamine Salicylate 1 applic Q6HP TOP 03/21/24 18:00 03/22/24 15:00 1 APPLIC [facility] [place] [facility] 03/21/24 18:00 03/23/24 07:32 0.5 MG Levalbuterol HCl 0.625 mg Q6HR [facility] 03/21/24 18:00 03/23/24 07:32 0.625 MG Sodium Chloride 1,000 ml @ 125 mls/hr Q8H IV 03/22/24 08:30 03/23/24 01:19 125 MLS/HR laboratory and microbiology Laboratory Tests 03/23/24 05:53 Test 03/23/24 05:53 Range/Units Serum Glucose 148 H 74-106 mg/dL Assessment/Plan Patient was a 53-year-old female who presented with few weeks of shortness of breaths/cough. She did have sick contact at home. Problem worsened and she decided to come to the hospital. In emergency room, oxygen saturation was 77% and was started on high-flow oxygen. Does have history of cardiomyopathy and does have BiV-ICD (Biotronik) implantation from before. Patient was taken to our office as outpatient and cardiology was involved for cardiac aspect of care. Denies chest pains. Denies loss of consciousness. It was of note that the patient decided few years ago to turn off the defibrillator power of the device and uses if as pacemaker. Patient has been on antibiotics as outpatient also. Obese lady. On high-flow oxygen. No JVD. Mucosa is pink and wet. Lungs reveals scattered rhonchi in crackles. Cardiac: Regular, systolic murmur 2/6 and apex is heard. Abdomen is soft. There was no gross mass. There is no hepatomegaly. Extremities do not reveal edema. Dorsalis pedis is 2+ bilateral Past medical history includes diabetes mellitus, obesity, anxiety disorder, depression, heart failure, cardiomyopathy, status post BiV-ICD implantation (Biotronik), status post cholecystectomy, appendectomy and bilateral breast reduction. It was of note that the patient was decided to turn off the defibrillator capacity of the device few years back and continues using it as pacemaker. Echocardiogram (performed in the office) of June 13, 2022 at reported mild concentric left ventricular hypertrophy, ejection fraction 55-60%, mild left atrial enlargement, mild MR/TR and right ventricular systolic pressure of less than 30 mm Hg Echocardiogram of December 04, 2023 had reported ejection fraction of 55%. Nuclear stress test of January 22, 2024 (performed in [facility]) reported ejection fraction 47%, low risk study, anterior wall defect in rest and stress imaging White blood cell: 19.1 - 15.7 - 17.1 - 17.9 - 17.0 - 11.0 D-dimer: 1.12 Creatinine: 0.94 - 0.91 - 0.91 - 0.88 - 0.91 Potassium: 4.3 - 4.2 - 3.8 - 4.3 - 4.4 BNP: 96.47 Troponin (high sensitive): 7 - 7 Beta HC.1 Urine toxicology was non-revealing Chest x-ray reported: FINDINGS: Lines and Tubes: Anterior fusion lower cervical spine. Pulse generator over place. Lungs: Mildly prominent pulmonary vascular markings. Pleura: No effusion. No pneumothorax. Cardiomediastinal contours: Cardiac size appears enlarged Bones: No acute osseous abnormality. IMPRESSION: 1. Findings may represent congestive failure or pneumonia. Repeat chest xry reported: IMPRESSION: Pulmonary vascular congestion Repeat chest xry reported: IMPRESSION: The heart is enlarged with dual lead left cardiac device. Moderate pulmonary vascular congestion increased. No sizable effusion or pneumothorax. Cervical spine hardware is noted. Repeat chest xry revealed: IMPRESSION: The heart is enlarged with a multi lead left cardiac device. Interstitial and alveolar opacities with moderate pulmonary vascular congestion appear similar. No sizable effusion or pneumothorax. Cervical fusion hardware. CTA of lungs reported: IMPRESSION: 1. No pulmonary emboli, aortic aneurysm or dissection. 2. Extensive bilateral pulmonary opacities that may represent pneumonia or edema. No pleural effusion. Mild cardiomegaly noted. Recommend clinical and biochemical correlation. Pelvic ultrasound revealed: Impression: 1. Uterus grossly unremarkable with endometrial thickness of 0.2 cm. Given elevated beta HCG and patient is postmenopausal, recommend contrast enhanced MRI for further evaluation. 2. Right ovary is within normal limits with normal color flow. EKG reveals sinus rhythm Echo reported: Left ventricle: Borderline concentric left ventricular hypertrophy was seen. LVEF was 60-65%. There was no gross wall motion abnormality. Right ventricle was normal sized with normal systolic function. Both atria were mildly dilated. Aortic valve: Aortic valve was trileaflet. There was no aortic insufficiency/stenosis. There was mild mitral/tricuspid regurgitation. Mild mitral annular calcification was seen. Pulmonary valve revealed mild insufficiency. IVC was normal sized with normal respiratory evaluation. Right ventricular systolic pressure was assessed at 28 mm Hg. Patient was a 53-year-old female with history of cardiomyopathy who presented with few weeks of worsening shortness breath and cough. Was found to have low oxygen saturation and is found to have acute respiratory failure. Presentation is more likely in favor of pneumonia/bronchitis. Does have history of heart failure but clinically heart failure is not significantly decompensated. Mild component of acute on chronic heart failure can not be ruled out. Acute respiratory failure Pneumonia, community-acquired Obesity, morbid Cardiomyopathy Acute on chonic Diastolic heart failure Status post BiV ICD implantation (Biotronik) Cardiac suggestion for management: Manage in ALFRED Follow up electrolytes and kidney function tests and correct abnormalities Request interrogation of the Biotronik device Evaluation and management of respiratory failure/pneumonia as per primary team Evaluation and management of minimal increase Beta HCG as per primary team. Consider Adjunct Phlebotomy Instructor evaluation. Further evaluation and management depends on the above and clinical course A total of 75 minutes was spent reviewing the patient record, examining the patient, making a diagnostic and therapeutic plan, discussing this plan with medical personnel, following up on diagnostic studies and following the patient for clinical stability excluding any and all procedures. At least 50% of this time was spent in direct, [id number] contact. Thank you for allowing me to participate in this patient's care. Further recommendations will depend on patient's clinical course. Please do not hesitate to contact me if you have any questions or concerns. This medical document was created using electronic medical record system with [employer] computerized dictation system. Although this document has been carefully reviewed, there may still be some phonetic and typographical errors. These areas are purely typographical due to the imperfection of the software programs, and do not reflect any compromise in the patient's medical care. Plan discussed with: Patient, Other (nurse) ANTONIETA GREEN MD Mar 23, 2024 08:04
--- NOTE | 2024-03-23 08:12 | DVHPNRES ---
Progress Note Date Seen: Mar 23, 2024 Resident Creating Document: ADRIENNE GARY RESIDENT Medical Necessity Reason Pt with a Central, PICC or Fol: No Subjective Review of Systems Taylor Coleman is a 53-year-old female who presented to the ED due to progressive dyspnea from functional class I to functional class IV in the past 3 weeks, associated with dry cough and lightheadedness. Patient reports presenting upper respiratory infection which started three weeks ago, he got better but she has been getting progressively worse prompting her visit to the ED. The patient also reported that she went to the urgent care in the past weekend and was prescribed corticosteroids and sent home. When patient arrived to the ED she was saturating 75% in room air with requirement of oxygen therapy with non-rebreather mask. Denies fever, chills, chest pain, palpitation, syncope, nausea, vomiting, diarrhea, recent travel and motor or sensory deficits. Past medical history: Dyslipidemia, obesity, diabetes, history of cardiomyopathy with HFrEF which is improved (per patient previous LVEF 20%, currently 55%) status post AIX SYSTEM ADMINISTRATOR-D (Biotronik) which defibrillator currently deactivated and only has pacing mechanism, anxiety, depression, stress test on January 25, 2024 low risk study (per supply controller) Surgical history: Three fusions of the cervical vertebra, to fusion of the lumbar vertebra, cholecystectomy 20 years ago, appendectomy when patient was a child, bilateral breast reduction, AIX SYSTEM ADMINISTRATOR-D (no atrial lead) placed in 2019 Family history: Noncontributory Social history: Lives with family in [place]. Recently quit smoking tobacco three weeks ago (30 pack-year history of smoking). Denies current alcohol and other drug abuse. Home Medications: Ozempic 1 mg once a week, pravastatin 40 mg daily, fenofibrate 124 mg daily, Entresto 24-26 mg one tab b.i.d., carvedilol 25 mg daily, fluoxetine 60 mg daily. Patient stated that her supply controller Dr. Wiley Patient seen and examined at bedside. Currently requiring on Oxymizer 6 L, she is ALFRED status. Has cervical spine pain. Objective vital signs Vital Sign Date Time Temp Pulse Resp B/P (MAP) Pulse Ox O2 Delivery O2 Flow Rate FiO2 03/23/24 07:32 92 Oxymizer 6.0 03/23/24 07:32 60 20 03/23/24 07:32 N/A 03/23/24 06:00 164/84 (110) 03/23/24 04:00 97.7 97.7 Total Intake and Output 03/22/24 03/22/24 03/23/24 15:00 23:00 07:00 Intake Total 1060 ml 1280.0 ml 450 ml Output Total 600 ml 525 ml Balance 460 ml 755.0 ml 450 ml medications Current Medications Medications Dose Ordered Sig/Thomas Route Start Time Stop Time Status Last Admin Dose Admin Acetaminophen 650 mg Q6HP PRN PO 03/19/24 21:00 03/20/24 18:40 650 MG Fluoxetine HCl 60 mg DAILY PO 03/20/24 10:00 03/22/24 10:36 60 MG Diagnostic Test (Pha) 1 strip ACHS 03/19/24 22:00 03/22/24 22:03 1 STRIP Insulin Human Regular ACHS SC 03/19/24 22:00 03/23/24 06:05 2 UNITS Dextrose 50 ml UD PRN IV 03/19/24 21:30 Vancomycin HCl 0 ml @ 0 mls/hr UD IV 03/20/24 09:30 Cefepime HCl 50 ml @ 12.5 mls/hr Q8HR IV 03/20/24 14:00 03/23/24 05:11 12.5 MLS/HR Atorvastatin Calcium 40 mg HS PO 03/20/24 22:00 03/22/24 22:18 40 MG Vancomycin HCl 250 ml @ 200 mls/hr Q12H IV 03/20/24 20:00 03/22/24 20:23 200 MLS/HR Methylprednisolone Sodium Succinate 40 mg BID IV 03/20/24 22:00 03/22/24 22:18 40 MG Ketorolac Tromethamine 15 mg Q6HPRN PRN IV 03/20/24 18:00 03/25/24 17:59 03/23/24 03:41 15 MG Enoxaparin Sodium 40 mg DAILY SC 03/21/24 10:00 03/22/24 10:35 40 MG Trolamine Salicylate 1 applic Q6HP TOP 03/21/24 18:00 03/22/24 15:00 1 APPLIC Ipratropium [place] 0.5 mg Q6HWA NEB 03/21/24 18:00 03/23/24 07:32 0.5 MG Levalbuterol HCl 0.625 mg Q6HR NEB 03/21/24 18:00 03/23/24 07:32 0.625 MG Sodium Chloride 1,000 ml @ 125 mls/hr Q8H IV 03/22/24 08:30 03/23/24 01:19 125 MLS/HR Examination General Appearance: Cooperative. Well developed. Well nourished. NAD Head Exam: Normal inspection Neck Exam: Normal inspection. Non-tender. Normal alignment Pulmonary/Respiratory: Chest non-tender. Tachypneic. Mild rales on the right more than left. Currently on Oxymizer 5 L Cardiovascular/Chest: Regular rate and rhythm. No murmurs. No JVD. Peripheral Pulses: 2+ Radial (R). 2+ Radial (L). 2+ Pedal (R). 2+ Pedal (L) Abdominal Exam: Normal bowel sounds. Soft. normal abdomen, no visible veins, Nontender. No hepatospenomegaly. No masses Lower extremities: Negative lower extremity edema Neuro/Mental Status: A&O x4. Coherent. Thoughts/Psych: Normal thought pattern. Appropriate mood and affect. Good judgement and insight Skin Exam: Normal inspection. Normal color. Warm. Dry laboratory and microbiology Laboratory Tests 03/23/24 05:53 Test 03/23/24 05:53 Range/Units Serum Glucose 148 H 74-106 mg/dL Microbiology Date/Time Source Procedure Growth Status 03/20/24 07:40 Blood Blood Culture - Preliminary NO GROWTH AFTER 72 HOURS OF INCUBATION. Resulted 03/20/24 04:02 Nose MRSA Screen - Final Complete 03/19/24 23:00 Voided Urine Urine Culture - Final Complete Labs and/or images reviewed: Labs reviewed by me, Image(s) reviewed by me Problem List/Assessment/Plan Problem List/Assessment/Plan # Acute hypoxic respiratory failure likely due to Gram-positive/Gram-negative bacterial pneumonia/typical pneumonia versus acute on chronic diastolic congestive heart failure Currently on oxygen therapy with high-flow at 45% FiO2, inhaled bronchodilator and IV steroids (40 mg IV b.i.d.) Downgraded to telemetry # Probable Gram-positive/Gram-negative bacterial pneumonia Currently under empiric IV antibiotic (cefepime and vancomycin, previously on azithromycin and ceftriaxone) Ordered cultures (blood, urine and sputum) and MRSA, pending COVID and influenza negative # Possible acute on chronic systolic/diastolic heart failure exacerbation - status post AIX SYSTEM ADMINISTRATOR-D placement Patient has history of improved HFrEF (LVEF from 20% to 55%) Patient received IV diuretics on admission, currently discontinued diuretics. She is status post AIX SYSTEM ADMINISTRATOR-D, currently only in pacemaker mode (defibrillation was turned off due to modified DNR) Echocardiogram: Concentric LVH, LVEF 60-65%, no gross mole motion abnormality, bilateral atrial mild dilation, mild MR and TR, RVSP 28 mmHg, IVC normal size Troponin and BNP negative. Discontinued GDMT at this point due to soft blood pressures, discontinue diuretics due to dry mucous membranes. Patient does not have atrial lead, EKG shows atrial activity and spike before QRS complex (questionable pacemaker syndrome). Have ordered cardiac device interrogation. Cardiology was consulted Last nuclear test reported ejection fraction 47%, low risk study, anterior wall defect in rest and stress imaging # Ruled out pulmonary embolism Positive D-dimer, ordered angio CT, negative for PE, extensive bilateral edema (pneumonia versus edema) Discontinued heparin drip A-a Gradient 17 mmHg adjusted to age (increased) # Type 2 diabetes mellitus - Controlled (hemoglobin A1c 5.9%) Mild sliding scale insulin # Dyslipidemia Currently on atorvastatin 40 mg daily # History of anxiety and depression Resume home fluoxetine 60 mg daily Resumed home medication aripiprazole, bupropion # Mildly thickened endometrium in postmenopausal woman Beta hCG mildly elevated (eight) and mildly engrossed endometrium (0.2 cm) on pelvic ultrasound. We will evaluate to complete MRI once patient is more stabilized and not requiring high-flow # chronic back pain Resumed home medication Percocet 10 mg Critical care time spent including discussion with nursing and family: 62 minutes Goals of care discussed with the patient and at bedside for >25min: Modified DNR/DNI (no chest compression, intubation nor defibrillation) Plan discussed with Dr. Mock, patient and nurses: Patient currently ALFRED status due to requirement of high-flow oxygen therapy. Currently under empiric IV antibiotic (cefepime and vancomycin), IV steroids, bronchodilators, discontinued IV diuretics (mucous membranes dry, no JVD) and heparin drip, ordered cardiac device interrogation. Patient has poor prognosis. Plan discussed with: Patient, Spouse, Other (RN) Date of Service: Mar 23, 2024 Billing Provider: RUBI MOCK MD Common Visit Codes: [id number] INP/OBS CARE(HIGH) ADRIENNE GARY RESIDENT Mar 23, 2024 08:12 RUBI MOCK MD Mar 23, 2024 21:46
[2024-03-23] MEDS: OXYCODONE W/ ACETAMINOPHEN 5/325MG TABLET PO PRN (14:04)
[2024-03-24] VITALS (17 sets, daily range): BP systolic 130–163; BP diastolic 72–78; PULSE 63–83; RESP 14–22; TEMP 97.4–98.3; O2SAT 91–99
--- NOTE | 2024-03-24 06:54 | DVH ---
EXAM: XR Chest, 1 View CLINICAL INDICATION: Pneumonia vs CHF preogression TECHNIQUE: Frontal view of the chest. COMPARISON: XY CHEST XRAY 1 VIEW on DOS: 03/23/24, XY CHEST XRAY 1 VIEW on DOS: 03/22/24, XY CHEST XR AY 1 VIEW on DOS: 03/21/24 FINDINGS: LUNGS AND PLEURAL SPACES: See below. HEART: Cardiomegaly with pulmonary congestion and edema. Superimposed pneumonia cannot be excluded. MEDIASTINUM: Unremarkable. Normal mediastinal contour. BONES/JOINTS: Unremarkable. No acute fracture. TUBES, LINES AND DEVICES: Left-sided cardiac pacemaker. OTHER FINDINGS: . . . .. IMPRESSION: Cardiomegaly with pulmonary congestion and edema. Superimposed pneumonia cannot be excluded.
[2024-03-24 07:20] LABS: Anion Gap 8 (5-15); Carbon Dioxide 22 mmol/L (20-31); Potassium 4.2 mmol/L (3.5-5.1); Sodium 138 mmol/L (136-145)
[2024-03-24 07:21] LABS: Calcium 9.4 mg/dL (8.7-10.4)
[2024-03-24 07:23] LABS: Basophils # (auto) 0 10 ^3/uL (0-0.2); Basophils % (auto) 0.3 % (0.0-2.0); Eosinophils # (auto) 0 10 ^3/uL (0-0.8); Eosinophils % (auto) 0.1 % (0.0-7.0); Hematocrit 38.3 % (36.0-46.0); Hemoglobin 12.9 g/dL (12.2-16.2); Lymphocytes # (auto) 1.2 10 ^3/uL (0.4-5.4); Lymphocytes % (auto) 11.2 % (10.0-50.0); Mean Corpuscular Hgb Conc. 33.7 g/dL (32.0-36.0); Mean Corpuscular Volume 97.8 fL (80.0-100.0); Monocytes # (auto) 0.5 10 ^3/uL (0-1.3); Monocytes % (auto) 4.6 % (0.0-12.0); Neutrophils # (auto) 8.7 10 ^3/uL (1.6-8.6); Neutrophils % (auto) 83.8 % (37.0-80.0); Nucleated Red Blood Cells % 0.1 %; Platelet Count (auto) 308 10^3/uL (140-450); Red Blood Cells 3.92 10^6/uL (4.0-5.20); Red Cell Distribution Width 12.7 % (11.8-14.3); White Blood Cell 10.3 10^3/uL (4.4-10.8)
[2024-03-24 07:26] LABS: BUN/Creatinine Ratio 24.7 (10.0-20.0); Blood Urea Nitrogen 20 mg/dL (9-23); Chloride 108 mmol/L (98-107); Glucose 120 mg/dL (74-106)
--- NOTE | 2024-03-24 08:17 | DVHPN2 ---
Progress Note - Dictate Date Seen: Mar 24, 2024 Medical Necessity Reason Pt with a Central, PICC or Fol: No vital signs Vital Sign Date Time Temp Pulse Resp B/P (MAP) Pulse Ox O2 Delivery O2 Flow Rate FiO2 03/24/24 07:11 65 16 97 03/24/24 07:05 Oxymizer 6.0 03/24/24 07:05 N/A 03/24/24 05:00 98.2 156/77 (103) 98.2 Total Intake and Output 03/23/24 03/23/24 03/24/24 15:00 23:00 07:00 Intake Total 900 ml Output Total 750 ml Balance 150 ml medications Current Medications Medications Dose Ordered Sig/Thomas Route Start Time Stop Time Status Last Admin Dose Admin Acetaminophen 650 mg Q6HP PRN PO 03/19/24 21:00 03/24/24 05:44 650 MG Fluoxetine HCl 60 mg DAILY PO 03/20/24 10:00 03/23/24 09:30 60 MG Diagnostic Test (Pha) 1 strip ACHS 03/19/24 22:00 03/24/24 05:45 1 STRIP Insulin Human Regular ACHS SC 03/19/24 22:00 03/24/24 06:29 2 UNITS Dextrose 50 ml UD PRN IV 03/19/24 21:30 Vancomycin HCl 0 ml @ 0 mls/hr UD IV 03/20/24 09:30 Cefepime HCl 50 ml @ 12.5 mls/hr Q8HR IV 03/20/24 14:00 03/24/24 05:44 12.5 MLS/HR Atorvastatin Calcium 40 mg HS PO 03/20/24 22:00 03/23/24 21:34 40 MG Vancomycin HCl 250 ml @ 200 mls/hr Q12H IV 03/20/24 20:00 03/23/24 21:34 200 MLS/HR Ketorolac Tromethamine 15 mg Q6HPRN PRN IV 03/20/24 18:00 03/25/24 17:59 03/24/24 05:44 15 MG Enoxaparin Sodium 40 mg DAILY SC 03/21/24 10:00 03/23/24 09:32 40 MG Trolamine Salicylate 1 applic Q6HP TOP 03/21/24 18:00 03/24/24 06:32 1 APPLIC Ipratropium Hanna 0.5 mg Q6HWA NEB 03/21/24 18:00 03/24/24 07:04 0.5 MG Levalbuterol HCl 0.625 mg Q6HR NEB 03/21/24 18:00 03/24/24 07:05 0.625 MG Oxycodone/ Acetaminophen 2 tab Q8HP PRN PO 03/23/24 13:00 03/23/24 14:04 2 TAB Patient Own Medication 15 tab HS PO 03/24/24 10:00 Patient Own Medication 300 mg DAILY PO 03/24/24 10:00 Methylprednisolone Sodium Succinate 40 mg DAILY IV 03/24/24 07:30 UNV laboratory and microbiology Laboratory Tests 03/24/24 06:49 Test 03/24/24 06:49 Range/Units Serum Glucose 120 H 74-106 mg/dL Assessment/Plan Patient was a 53-year-old female who presented with few weeks of shortness of breaths/cough. She did have sick contact at home. Problem worsened and she decided to come to the hospital. In emergency room, oxygen saturation was 77% and was started on high-flow oxygen. Does have history of cardiomyopathy and does have BiV-ICD (Biotronik) implantation from before. Patient was taken to our office as outpatient and cardiology was involved for cardiac aspect of care. Denies chest pains. Denies loss of consciousness. It was of note that the patient decided few years ago to turn off the defibrillator power of the device and uses if as pacemaker. Patient has been on antibiotics as outpatient also. Obese lady. On high-flow oxygen. No JVD. Mucosa is pink and wet. Lungs reveals scattered rhonchi in crackles. Cardiac: Regular, systolic murmur 2/6 and apex is heard. Abdomen is soft. There was no gross mass. There is no hepatomegaly. Extremities do not reveal edema. Dorsalis pedis is 2+ bilateral Past medical history includes diabetes mellitus, obesity, anxiety disorder, depression, heart failure, cardiomyopathy, status post BiV-ICD implantation (Biotronik), status post cholecystectomy, appendectomy and bilateral breast reduction. It was of note that the patient was decided to turn off the defibrillator capacity of the device few years back and continues using it as pacemaker. Echocardiogram (performed in the office) of June 13, 2022 at reported mild concentric left ventricular hypertrophy, ejection fraction 55-60%, mild left atrial enlargement, mild MR/TR and right ventricular systolic pressure of less than 30 mm Hg Echocardiogram of December 04, 2023 had reported ejection fraction of 55%. Nuclear stress test of January 22, 2024 (performed in [facility]) reported ejection fraction 47%, low risk study, anterior wall defect in rest and stress imaging White blood cell: 19.1 - 15.7 - 17.1 - 17.9 - 17.0 - 11.0 - 10.3 D-dimer: 1.12 Creatinine: 0.94 - 0.91 - 0.91 - 0.88 - 0.91 - 0.81 Potassium: 4.3 - 4.2 - 3.8 - 4.3 - 4.4 - 4.2 BNP: 96.47 Troponin (high sensitive): 7 - 7 Beta HC.1 Urine toxicology was non-revealing Chest x-ray reported: FINDINGS: Lines and Tubes: Anterior fusion lower cervical spine. Pulse generator over place. Lungs: Mildly prominent pulmonary vascular markings. Pleura: No effusion. No pneumothorax. Cardiomediastinal contours: Cardiac size appears enlarged Bones: No acute osseous abnormality. IMPRESSION: 1. Findings may represent congestive failure or pneumonia. CTA of lungs reported: IMPRESSION: 1. No pulmonary emboli, aortic aneurysm or dissection. 2. Extensive bilateral pulmonary opacities that may represent pneumonia or edema. No pleural effusion. Mild cardiomegaly noted. Recommend clinical and biochemical correlation. Pelvic ultrasound revealed: Impression: 1. Uterus grossly unremarkable with endometrial thickness of 0.2 cm. Given elevated beta HCG and patient is postmenopausal, recommend contrast enhanced MRI for further evaluation. 2. Right ovary is within normal limits with normal color flow. EKG reveals sinus rhythm Echo reported: Left ventricle: Borderline concentric left ventricular hypertrophy was seen. LVEF was 60-65%. There was no gross wall motion abnormality. Right ventricle was normal sized with normal systolic function. Both atria were mildly dilated. Aortic valve: Aortic valve was trileaflet. There was no aortic insufficiency/stenosis. There was mild mitral/tricuspid regurgitation. Mild mitral annular calcification was seen. Pulmonary valve revealed mild insufficiency. IVC was normal sized with normal respiratory evaluation. Right ventricular systolic pressure was assessed at 28 mm Hg. Patient was a 53-year-old female with history of cardiomyopathy who presented with few weeks of worsening shortness breath and cough. Was found to have low oxygen saturation and is found to have acute respiratory failure. Presentation is more likely in favor of pneumonia/bronchitis. Does have history of heart failure but clinically heart failure is not significantly decompensated. Mild component of acute on chronic heart failure can not be ruled out. Acute respiratory failure Pneumonia, community-acquired Obesity, morbid Cardiomyopathy Acute on chonic Diastolic heart failure Status post BiV ICD implantation (Biotronik) Cardiac suggestion for management: Manage in [place] Follow up electrolytes and kidney function tests and correct abnormalities Awaiting interrogation of the Biotronik device Evaluation and management of respiratory failure/pneumonia as per primary team Evaluation and management of minimal increase Beta HCG as per primary team. Consider Manager Meeting evaluation. Further evaluation and management depends on the above and clinical course A total of 55 minutes was spent reviewing the patient record, examining the patient, making a diagnostic and therapeutic plan, discussing this plan with medical personnel, following up on diagnostic studies and following the patient for clinical stability excluding any and all procedures. At least 50% of this time was spent in direct, [id number] contact. Thank you for allowing me to participate in this patient's care. Further recommendations will depend on patient's clinical course. Please do not hesitate to contact me if you have any questions or concerns. This medical document was created using electronic medical record system with [employer] computerized dictation system. Although this document has been carefully reviewed, there may still be some phonetic and typographical errors. These areas are purely typographical due to the imperfection of the software programs, and do not reflect any compromise in the patient's medical care. Plan discussed with: Patient, Other (nurse) ANTONIETA GREEN MD Mar 24, 2024 08:17
[2024-03-24] MEDS: BUPROPION 150 MG PO SCH (10:00)
[2024-03-24] MEDS: ARIPIPRAZOLE 15MG TABLET PO SCH (10:00)
[2024-03-24] MEDS: methylPREDNISolone SOD SUCC 40 MG/ML VL IV SCH (11:13)
[2024-03-24] MEDS: GABAPENTIN 300 MG CAP PO SCH (13:31)
[2024-03-24 15:03] LABS: Base Excess -1.9 mmol/L (-2.0-3.0)
--- NOTE | 2024-03-24 15:34 | DVHPNRES ---
Progress Note Date Seen: Mar 24, 2024 Resident Creating Document: BETTY YOST RESIDENT Medical Necessity Reason Pt with a Central, PICC or Fol: No Subjective Review of Systems Taylor Coleman is a 53-year-old female who presented to the ED due to progressive dyspnea from functional class I to functional class IV in the past 3 weeks, associated with dry cough and lightheadedness. Patient reports presenting upper respiratory infection which started three weeks ago, he got better but she has been getting progressively worse prompting her visit to the ED. The patient also reported that she went to the urgent care in the past weekend and was prescribed corticosteroids and sent home. When patient arrived to the ED she was saturating 75% in room air with requirement of oxygen therapy with non-rebreather mask. Denies fever, chills, chest pain, palpitation, syncope, nausea, vomiting, diarrhea, recent travel and motor or sensory deficits. Past medical history: Dyslipidemia, obesity, diabetes, history of cardiomyopathy with HFrEF which is improved (per patient previous LVEF 20%, currently 55%) status post STOCKROOM COORDINATOR-D (Biotronik) which defibrillator currently deactivated and only has pacing mechanism, anxiety, depression, stress test on January 25, 2024 low risk study (per fire supervisor) Surgical history: Three fusions of the cervical vertebra, to fusion of the lumbar vertebra, cholecystectomy 20 years ago, appendectomy when patient was a child, bilateral breast reduction, STOCKROOM COORDINATOR-D (no atrial lead) placed in 2019 Family history: Noncontributory Social history: Lives with family in [place]. Recently quit smoking tobacco three weeks ago (30 pack-year history of smoking). Denies current alcohol and other drug abuse. Home Medications: Ozempic 1 mg once a week, pravastatin 40 mg daily, fenofibrate 124 mg daily, Entresto 24-26 mg one tab b.i.d., carvedilol 25 mg daily, fluoxetine 60 mg daily. Patient stated that her fire supervisor Dr. Wiley Patient seen and examined at bedside. Currently on telemetry on Oxymizer (6 liters/minute). Currently has no other complaint. Objective vital signs Vital Sign Date Time Temp Pulse Resp B/P (MAP) Pulse Ox O2 Delivery O2 Flow Rate FiO2 03/24/24 13:00 97.5 70 20 138/72 (94) 97 97.5 2/17/25 11:45 Oxymizer 5.0 03/24/24 11:45 N/A Total Intake and Output 03/23/24 03/23/24 03/24/24 15:00 23:00 07:00 Intake Total 900 ml 500 ml Output Total 750 ml Balance 150 ml 500 ml medications Current Medications Medications Dose Ordered Sig/Thomas Route Start Time Stop Time Status Last Admin Dose Admin Acetaminophen 650 mg Q6HP PRN PO 03/19/24 21:00 03/24/24 05:44 650 MG Fluoxetine HCl 60 mg DAILY PO 03/20/24 10:00 03/24/24 08:34 60 MG Diagnostic Test (Pha) 1 strip ACHS 03/19/24 22:00 03/24/24 11:04 1 STRIP Insulin Human Regular ACHS SC 03/19/24 22:00 03/24/24 06:29 2 UNITS Dextrose 50 ml UD PRN IV 03/19/24 21:30 Vancomycin HCl 0 ml @ 0 mls/hr UD IV 03/20/24 09:30 Cefepime HCl 50 ml @ 12.5 mls/hr Q8HR IV 03/20/24 14:00 03/24/24 14:06 12.5 MLS/HR Atorvastatin Calcium 40 mg HS PO 03/20/24 22:00 03/23/24 21:34 40 MG Ketorolac Tromethamine 15 mg Q6HPRN PRN IV 03/20/24 18:00 03/25/24 17:59 03/24/24 13:32 15 MG Enoxaparin Sodium 40 mg DAILY SC 03/21/24 10:00 03/24/24 08:33 40 MG Trolamine Salicylate 1 applic Q6HP TOP 03/21/24 18:00 03/24/24 11:59 1 APPLIC Ipratropium [place] 0.5 mg Q6HWA NEB 03/21/24 18:00 03/24/24 11:45 0.5 MG Levalbuterol HCl 0.625 mg Q6HR NEB 03/21/24 18:00 03/24/24 11:45 0.625 MG Oxycodone/ Acetaminophen 2 tab Q8HP PRN PO 03/23/24 13:00 03/23/24 14:04 2 TAB Patient Own Medication 15 tab HS PO 03/24/24 10:00 Patient Own Medication 300 mg DAILY PO 03/24/24 10:00 Methylprednisolone Sodium Succinate 40 mg DAILY IV 03/24/24 07:30 03/24/24 13:31 40 MG Gabapentin 300 mg TID PO 03/24/24 14:00 03/24/24 13:31 300 MG Examination Patient lying in bed, in no acute distress General: Lucid, afebrile, mucosae are moist Cardiovascular: Tachycardia. Normal S1 and S2. No murmurs, gallops or rubs, no JVD. Respiratory: Normal ventilation mechanics, no use of accessory muscles of breathing at this moment. Clear lung sounds on auscultation, currently on Oxymizer 6 liters/minute Abdomen: Soft, nontender, no organomegaly, normal bowel sounds MSK/skin: Mobilizes 4 limbs. Skin is dry and warm. Neurological: Oriented in 3 spheres. No motor no sensitive deficits. Pupils are isocoric and reactive laboratory and microbiology Laboratory Tests 03/24/24 06:49 Test 03/24/24 06:49 Range/Units Serum Glucose 120 H 74-106 mg/dL Microbiology Date/Time Source Procedure Growth Status 03/20/24 07:40 Blood Blood Culture - Preliminary NO GROWTH AFTER 72 HOURS OF INCUBATION. Resulted 03/20/24 04:02 Nose MRSA Screen - Final Complete 03/19/24 23:00 Voided Urine Urine Culture - Final Complete Problem List/Assessment/Plan Problem List/Assessment/Plan # Acute hypoxic respiratory failure likely due to Gram-positive/Gram-negative bacterial pneumonia/typical pneumonia versus acute on chronic diastolic congestive heart failure Currently on oxygen therapy with h Oxymizer at 6 L, inhaled bronchodilator and IV steroids (40 mg IV daily) Patient on telemetry status # Probable Gram-positive/Gram-negative bacterial pneumonia Currently under empiric IV antibiotic (cefepime and vancomycin, previously on azithromycin and ceftriaxone) Ordered cultures (blood, urine and sputum) and MRSA, negative pending COVID and influenza negative # Possible acute on chronic systolic/diastolic heart failure exacerbation - status post STOCKROOM COORDINATOR-D placement Patient has history of improved HFrEF (LVEF from 20% to 55%) Patient received IV diuretics on admission, currently discontinued diuretics. She is status post STOCKROOM COORDINATOR-D, currently only in pacemaker mode (defibrillation was turned off due to modified DNR) Echocardiogram: Concentric LVH, LVEF 60-65%, no gross mole motion abnormality, bilateral atrial mild dilation, mild MR and TR, RVSP 28 mmHg, IVC normal size Troponin and BNP negative. Discontinued GDMT at this point due to soft blood pressures, discontinue diuretics due to dry mucous membranes. Patient does not have atrial lead, EKG shows atrial activity and spike before QRS complex (questionable pacemaker syndrome). Have ordered cardiac device interrogation (completed, but no report, we will repeat test). Cardiology was consulted Last nuclear test reported ejection fraction 47%, low risk study, anterior wall defect in rest and stress imaging # Ruled out pulmonary embolism Positive D-dimer, ordered angio CT, negative for PE, extensive bilateral edema (pneumonia versus edema) Discontinued heparin drip A-a Gradient 17 mmHg adjusted to age (increased) # Type 2 diabetes mellitus - Controlled (hemoglobin A1c 5.9%) Mild sliding scale insulin # Dyslipidemia Currently on atorvastatin 40 mg daily # History of anxiety and depression Resume home fluoxetine 60 mg daily # Mildly thickened endometrium in postmenopausal woman Beta hCG mildly elevated (eight) and mildly engrossed endometrium (0.2 cm) on pelvic ultrasound. We will evaluate to complete MRI once patient is more stabilized and not requiring high-flow Critical care time spent including discussion with nursing and family: 62 minutes Goals of care discussed with the patient and at bedside for >25min: Modified DNR/DNI (no chest compression, intubation nor defibrillation) Plan discussed with Dr. Hunt, patient and nurses: Patient currently on telemetry status, on Oxymizer at 6 liters/minute. Currently under empiric IV antibiotic (cefepime and vancomycin), IV steroids, bronchodilators, discontinued IV diuretics (mucous membranes dry, no JVD) and heparin drip, ordered cardiac device interrogation. Patient has poor prognosis. Plan discussed with: Patient, Spouse, Other (Nurses) My Orders My Orders Orders - BETTY YOST RESIDENT Procedure Category Date Status Time Methylprednisolone PHA 03/24/24 In Process Sod Succ (Solu Medrol 07:30 Gabapentin Capsule PHA 03/24/24 In Process (Neurontin Capsule) 14:00 Respiratory Culture KEITH 03/24/24 In Process W/ Gs 14:13 Abg W/ Co-Ox RT 03/24/24 Logged 14:14 Date of Service: Mar 24, 2024 Billing Provider: EARLENE HUNT MD Common Visit Codes: [id number] INP/OBS CARE(HIGH) BETTY YOST RESIDENT Mar 24, 2024 15:34 EARLENE HUNT MD Mar 25, 2024 16:13
[2024-03-25] VITALS (15 sets, daily range): BP systolic 106–144; BP diastolic 66–83; PULSE 75–104; RESP 16–20; TEMP 97.4–98.2; O2SAT 91–98
[2024-03-25 05:19] LABS: Basophils # (auto) 0.1 10 ^3/uL (0-0.2); Basophils % (auto) 0.7 % (0.0-2.0); Eosinophils # (auto) 0 10 ^3/uL (0-0.8); Eosinophils % (auto) 0.3 % (0.0-7.0); Hematocrit 43.6 % (36.0-46.0); Hemoglobin 14.4 g/dL (12.2-16.2); Lymphocytes % (auto) 16.9 % (10.0-50.0); Mean Corpuscular Hgb Conc. 32.9 g/dL (32.0-36.0); Mean Corpuscular Volume 97.2 fL (80.0-100.0); Monocytes # (auto) 0.6 10 ^3/uL (0-1.3); Monocytes % (auto) 4.8 % (0.0-12.0); Neutrophils # (auto) 9.3 10 ^3/uL (1.6-8.6); Neutrophils % (auto) 77.3 % (37.0-80.0); Platelet Count (auto) 332 10^3/uL (140-450); Red Blood Cells 4.49 10^6/uL (4.0-5.20); Red Cell Distribution Width 12.6 % (11.8-14.3)
[2024-03-25 05:35] LABS: Anion Gap 8 (5-15); Carbon Dioxide 28 mmol/L (20-31); Chloride 104 mmol/L (98-107); Potassium 3.6 mmol/L (3.5-5.1); Sodium 140 mmol/L (136-145)
[2024-03-25 05:36] LABS: Calcium 9.7 mg/dL (8.7-10.4)
[2024-03-25 05:41] LABS: BUN/Creatinine Ratio 27.6 (10.0-20.0); Blood Urea Nitrogen 21 mg/dL (9-23)
[2024-03-25 05:59] LABS: Glucose 114 mg/dL (74-106)
--- NOTE | 2024-03-25 07:13 | DVHPN2 ---
Progress Note - Dictate Date Seen: Mar 25, 2024 Medical Necessity Reason Pt with a Central, PICC or Fol: No vital signs Vital Sign Date Time Temp Pulse Resp B/P (MAP) Pulse Ox O2 Delivery O2 Flow Rate FiO2 03/25/24 06:04 84 18 97 03/25/24 05:54 Nasal Cannula* 4 36 03/25/24 05:00 97.6 134/68 (90) 97.6 Total Intake and Output 03/24/24 03/24/24 03/25/24 15:00 23:00 07:00 Intake Total 470 ml 980 ml 500 ml Output Total 1050 ml Balance 470 ml -70 ml 500 ml medications Current Medications Medications Dose Ordered Sig/Thomas Route Start Time Stop Time Status Last Admin Dose Admin Acetaminophen 650 mg Q6HP PRN PO 03/19/24 21:00 03/24/24 05:44 650 MG Fluoxetine HCl 60 mg DAILY PO 03/20/24 10:00 03/24/24 08:34 60 MG Diagnostic Test (Pha) 1 strip ACHS 03/19/24 22:00 03/25/24 06:43 1 STRIP Insulin Human Regular ACHS SC 03/19/24 22:00 03/24/24 21:43 2 UNITS Dextrose 50 ml UD PRN IV 03/19/24 21:30 Vancomycin HCl 0 ml @ 0 mls/hr UD IV 03/20/24 09:30 Cefepime HCl 50 ml @ 12.5 mls/hr Q8HR IV 03/20/24 14:00 03/25/24 05:15 12.5 MLS/HR Atorvastatin Calcium 40 mg HS PO 03/20/24 22:00 03/24/24 21:23 40 MG Ketorolac Tromethamine 15 mg Q6HPRN PRN IV 03/20/24 18:00 03/25/24 17:59 03/24/24 13:32 15 MG Enoxaparin Sodium 40 mg DAILY SC 03/21/24 10:00 03/24/24 08:33 40 MG Trolamine Salicylate 1 applic Q6HP TOP 03/21/24 18:00 03/25/24 05:15 1 APPLIC Ipratropium [place] 0.5 mg Q6HWA NEB 03/21/24 18:00 03/25/24 05:53 0.5 MG Levalbuterol HCl 0.625 mg Q6HR NEB 03/21/24 18:00 03/25/24 05:53 0.625 MG Oxycodone/ Acetaminophen 2 tab Q8HP PRN PO 03/23/24 13:00 03/25/24 03:48 2 TAB Patient Own Medication 15 tab HS PO 03/24/24 10:00 Patient Own Medication 300 mg DAILY PO 03/24/24 10:00 Methylprednisolone Sodium Succinate 40 mg DAILY IV 03/24/24 07:30 03/24/24 13:31 40 MG Gabapentin 300 mg TID PO 03/24/24 14:00 03/25/24 05:14 300 MG laboratory and microbiology Laboratory Tests 03/25/24 04:26 Test 03/25/24 04:26 Range/Units Serum Glucose 114 H 74-106 mg/dL Assessment/Plan Patient was a 53-year-old female who presented with few weeks of shortness of breaths/cough. She did have sick contact at home. Problem worsened and she decided to come to the hospital. In emergency room, oxygen saturation was 77% and was started on high-flow oxygen. Does have history of cardiomyopathy and does have BiV-ICD (Biotronik) implantation from before. Patient was taken to our office as outpatient and cardiology was involved for cardiac aspect of care. Denies chest pains. Denies loss of consciousness. It was of note that the patient decided few years ago to turn off the defibrillator power of the device and uses if as pacemaker. Patient has been on antibiotics as outpatient also. Obese lady. On high-flow oxygen. No JVD. Mucosa is pink and wet. Lungs reveals scattered rhonchi in crackles. Cardiac: Regular, systolic murmur 2/6 and apex is heard. Abdomen is soft. There was no gross mass. There is no hepatomegaly. Extremities do not reveal edema. Dorsalis pedis is 2+ bilateral Past medical history includes diabetes mellitus, obesity, anxiety disorder, depression, heart failure, cardiomyopathy, status post BiV-ICD implantation (Biotronik), status post cholecystectomy, appendectomy and bilateral breast reduction. It was of note that the patient was decided to turn off the defibrillator capacity of the device few years back and continues using it as pacemaker. Echocardiogram (performed in the office) of June 13, 2022 at reported mild concentric left ventricular hypertrophy, ejection fraction 55-60%, mild left atrial enlargement, mild MR/TR and right ventricular systolic pressure of less than 30 mm Hg Echocardiogram of December 04, 2023 had reported ejection fraction of 55%. Nuclear stress test of January 22, 2024 (performed in [facility]) reported ejection fraction 47%, low risk study, anterior wall defect in rest and stress imaging White blood cell: 19.1 - 15.7 - 17.1 - 17.9 - 17.0 - 11.0 - 10.3 - 12.0 D-dimer: 1.12 Creatinine: 0.94 - 0.91 - 0.91 - 0.88 - 0.91 - 0.81 - 0.76 Potassium: 4.3 - 4.2 - 3.8 - 4.3 - 4.4 - 4.2 - 3.6 BNP: 96.47 Troponin (high sensitive): 7 - 7 Beta HC.1 Urine toxicology was non-revealing Chest x-ray reported: FINDINGS: Lines and Tubes: Anterior fusion lower cervical spine. Pulse generator over place. Lungs: Mildly prominent pulmonary vascular markings. Pleura: No effusion. No pneumothorax. Cardiomediastinal contours: Cardiac size appears enlarged Bones: No acute osseous abnormality. IMPRESSION: 1. Findings may represent congestive failure or pneumonia. CTA of lungs reported: IMPRESSION: 1. No pulmonary emboli, aortic aneurysm or dissection. 2. Extensive bilateral pulmonary opacities that may represent pneumonia or edema. No pleural effusion. Mild cardiomegaly noted. Recommend clinical and biochemical correlation. Pelvic ultrasound revealed: Impression: 1. Uterus grossly unremarkable with endometrial thickness of 0.2 cm. Given elevated beta HCG and patient is postmenopausal, recommend contrast enhanced MRI for further evaluation. 2. Right ovary is within normal limits with normal color flow. EKG reveals sinus rhythm Echo reported: Left ventricle: Borderline concentric left ventricular hypertrophy was seen. LVEF was 60-65%. There was no gross wall motion abnormality. Right ventricle was normal sized with normal systolic function. Both atria were mildly dilated. Aortic valve: Aortic valve was trileaflet. There was no aortic insufficiency/stenosis. There was mild mitral/tricuspid regurgitation. Mild mitral annular calcification was seen. Pulmonary valve revealed mild insufficiency. IVC was normal sized with normal respiratory evaluation. Right ventricular systolic pressure was assessed at 28 mm Hg. [employer] interrogation revealed: Battery status: MOS1; Remaining battery capacity: 62%; DDD/BIV: 60/130; Pulse amplitude: RV 3.5/LV 3.5 volts; Sensing amplitude: A 4.3/RV 18.7/LV 19.1 mV; Pacing impedance: RV 518/LV 1143 Ohms; Shock impedance: 77 Ohms; Pacing a/LV/Bi V/DIRECTOR OF MARKETING AND PROMOTIONS: ----/0/100/100%; Atrial burden: 0%; No episodes; Normal functioning BiV Patient was a 53-year-old female with history of cardiomyopathy who presented with few weeks of worsening shortness breath and cough. Was found to have low oxygen saturation and is found to have acute respiratory failure. Presentation is more likely in favor of pneumonia/bronchitis. Does have history of heart failure but clinically heart failure is not significantly decompensated. Mild component of acute on chronic heart failure can not be ruled out. Acute respiratory failure Pneumonia, community-acquired Obesity, morbid Cardiomyopathy Acute on chonic Diastolic heart failure Status post BiV ICD implantation (Biotronik) Cardiac suggestion for management: Manage on Tele Follow up electrolytes and kidney function tests and correct abnormalities Evaluation and management of respiratory failure/pneumonia as per primary team Evaluation and management of minimal increase Beta HCG as per primary team. Consider Janitor Caretaker evaluation. Further evaluation and management depends on the above and clinical course A total of 55 minutes was spent reviewing the patient record, examining the patient, making a diagnostic and therapeutic plan, discussing this plan with medical personnel, following up on diagnostic studies and following the patient for clinical stability excluding any and all procedures. At least 50% of this time was spent in direct, [id number] contact. Thank you for allowing me to participate in this patient's care. Further recommendations will depend on patient's clinical course. Please do not hesitate to contact me if you have any questions or concerns. This medical document was created using electronic medical record system with [employer] computerized dictation system. Although this document has been carefully reviewed, there may still be some phonetic and typographical errors. These areas are purely typographical due to the imperfection of the software programs, and do not reflect any compromise in the patient's medical care. Plan discussed with: Patient, Other (nurse) ANTONIETA GREEN MD Mar 25, 2024 07:13
--- NOTE | 2024-03-25 07:30 | DVH ---
EXAM: XR Chest, 1 View CLINICAL INDICATION: Pneumonia vs CHF preogression TECHNIQUE: Frontal view of the chest. COMPARISON: XY CHEST XRAY 1 VIEW on DOS: 03/24/24, XY CHEST XRAY 1 VIEW on DOS: 03/23/24, XY CHEST XR AY 1 VIEW on DOS: 03/22/24, XY CHEST XRAY 1 VIEW on DOS: 03/21/24 FINDINGS: LUNGS AND PLEURAL SPACES: See below. HEART: Cardiomegaly with mild congestion. MEDIASTINUM: Unremarkable. Normal mediastinal contour. BONES/JOINTS: Unremarkable. No acute fracture. TUBES, LINES AND DEVICES: Left-sided cardiac pacemaker. OTHER FINDINGS: . . IMPRESSION: Cardiomegaly with mild congestion.
--- NOTE | 2024-03-25 08:26 | DVHNC2 ---
Procedure - Biotronik interrogation revealed: Battery status: MOS1 Remaining battery capacity: 62% VDD/BIV: 60/130 Pulse amplitude: RV 3.5/LV 3.5 volts Sensing amplitude: A 4.3/RV 18.7/LV 19.1 mV Pacing impedance: RV 518/LV 1143 Ohms Shock impedance: 77 Ohms Pacing a/LV/Bi V/LINE AND FRAME POLER: ----/0/100/100% Atrial burden: 0% No episodes Normal functioning BiV ANTONIETA GREEN MD Mar 25, 2024 08:26
[2024-03-25] MEDS: PANTOPRAZOLE 40 MG/10 ML VIAL INJ IV SCH (12:09)
[2024-03-25] MEDS: VANCOMYCIN 1.25GM/250ML 250 ML IV SCH (12:09)
--- NOTE | 2024-03-25 16:14 | DVHPNRES ---
Progress Note Date Seen: Mar 25, 2024 Resident Creating Document: BETTY YOST RESIDENT Medical Necessity Reason Pt with a Central, PICC or Fol: No Subjective Review of Systems Taylor Coleman is a 53-year-old female who presented to the ED due to progressive dyspnea from functional class I to functional class IV in the past 3 weeks, associated with dry cough and lightheadedness. Patient reports presenting upper respiratory infection which started three weeks ago, he got better but she has been getting progressively worse prompting her visit to the ED. The patient also reported that she went to the urgent care in the past weekend and was prescribed corticosteroids and sent home. When patient arrived to the ED she was saturating 75% in room air with requirement of oxygen therapy with non-rebreather mask. Denies fever, chills, chest pain, palpitation, syncope, nausea, vomiting, diarrhea, recent travel and motor or sensory deficits. Past medical history: Dyslipidemia, obesity, diabetes, history of cardiomyopathy with HFrEF which is improved (per patient previous LVEF 20%, currently 55%) status post BOILER REPAIR SUPERVISOR-D (Biotronik) which defibrillator currently deactivated and only has pacing mechanism, anxiety, depression, stress test on January 25, 2024 low risk study (per prison warden) Surgical history: Three fusions of the cervical vertebra, to fusion of the lumbar vertebra, cholecystectomy 20 years ago, appendectomy when patient was a child, bilateral breast reduction, BOILER REPAIR SUPERVISOR-D (no atrial lead) placed in 2019 Family history: Noncontributory Social history: Lives with family in [place]. Recently quit smoking tobacco three weeks ago (30 pack-year history of smoking). Denies current alcohol and other drug abuse. Home Medications: Ozempic 1 mg once a week, pravastatin 40 mg daily, fenofibrate 124 mg daily, Entresto 24-26 mg one tab b.i.d., carvedilol 25 mg daily, fluoxetine 60 mg daily. Patient stated that her prison warden Dr. Wiley Patient seen and examined at bedside. Currently on telemetry on nasal cannula (3 liters/minute). Currently has no other complaint. Objective vital signs Vital Sign Date Time Temp Pulse Resp B/P (MAP) Pulse Ox O2 Delivery O2 Flow Rate FiO2 03/25/24 13:00 98.2 80 19 106/66 (79) 91 98.2 03/25/24 12:29 Nasal Cannula* 3 32 Total Intake and Output 03/24/24 03/24/24 03/25/24 15:00 23:00 07:00 Intake Total 470 ml 980 ml 500 ml Output Total 1050 ml Balance 470 ml -70 ml 500 ml medications Current Medications Medications Dose Ordered Sig/Thomas Route Start Time Stop Time Status Last Admin Dose Admin Acetaminophen 650 mg Q6HP PRN PO 03/19/24 21:00 03/25/24 13:46 650 MG Fluoxetine HCl 60 mg DAILY PO 03/20/24 10:00 03/25/24 12:08 60 MG Diagnostic Test (Pha) 1 strip ACHS 03/19/24 22:00 03/25/24 11:30 1 STRIP Insulin Human Regular ACHS SC 03/19/24 22:00 03/24/24 21:43 2 UNITS Dextrose 50 ml UD PRN IV 03/19/24 21:30 Vancomycin HCl 0 ml @ 0 mls/hr UD IV 03/20/24 09:30 Cefepime HCl 50 ml @ 12.5 mls/hr Q8HR IV 03/20/24 14:00 03/25/24 15:48 12.5 MLS/HR Atorvastatin Calcium 40 mg HS PO 03/20/24 22:00 03/24/24 21:23 40 MG Ketorolac Tromethamine 15 mg Q6HPRN PRN IV 03/20/24 18:00 03/25/24 17:59 03/24/24 13:32 15 MG Enoxaparin Sodium 40 mg DAILY SC 03/21/24 10:00 03/25/24 12:10 40 MG Trolamine Salicylate 1 applic Q6HP TOP 03/21/24 18:00 03/25/24 05:15 1 APPLIC Ipratropium [place] 0.5 mg Q6HWA NEB 03/21/24 18:00 03/25/24 12:25 0.5 MG Levalbuterol HCl 0.625 mg Q6HR NEB 03/21/24 18:00 03/25/24 12:25 0.625 MG Oxycodone/ Acetaminophen 2 tab Q8HP PRN PO 03/23/24 13:00 03/25/24 12:09 2 TAB Patient Own Medication 15 tab HS PO 03/24/24 10:00 Methylprednisolone Sodium Succinate 40 mg DAILY IV 03/24/24 07:30 03/25/24 12:09 40 MG Gabapentin 300 mg TID PO 03/24/24 14:00 03/25/24 15:48 300 MG Pantoprazole Sodium 40 mg DAILY IV 03/25/24 10:00 03/25/24 12:09 40 MG Vancomycin HCl 250 ml @ 200 mls/hr Q15H IV 03/25/24 10:00 03/25/24 12:09 200 MLS/HR Patient Own Medication 300 mg DAILY PO 03/26/24 10:00 Examination Patient lying in bed, in no acute distress General: Lucid, afebrile, mucosae are moist Cardiovascular: Tachycardia. Normal S1 and S2. No murmurs, gallops or rubs, no JVD. Respiratory: Normal ventilation mechanics, no use of accessory muscles of breathing at this moment. Clear lung sounds on auscultation, currently on nasal cannula at 3 liters/minute Abdomen: Soft, nontender, no organomegaly, normal bowel sounds MSK/skin: Mobilizes 4 limbs. Skin is dry and warm. Neurological: Oriented in 3 spheres. No motor no sensitive deficits. Pupils are isocoric and reactive laboratory and microbiology Laboratory Tests 03/25/24 04:26 Test 03/25/24 04:26 Range/Units Serum Glucose 114 H 74-106 mg/dL Microbiology Date/Time Source Procedure Growth Status 03/24/24 14:10 Sputum Gram Stain - Final Resulted 03/24/24 14:10 Sputum Respiratory Culture - Preliminary Resulted 03/20/24 07:40 Blood Blood Culture - Final NO GROWTH AFTER 5 DAYS OF INCUBATION. Complete 03/20/24 04:02 Nose MRSA Screen - Final Complete 03/19/24 23:00 Voided Urine Urine Culture - Final Complete Problem List/Assessment/Plan Problem List/Assessment/Plan # Acute hypoxic respiratory failure likely due to Gram-positive/Gram-negative bacterial pneumonia/typical pneumonia versus acute on chronic diastolic congestive heart failure Currently on oxygen therapy with nasal cannula 3 liters/minute, inhaled bronchodilator and IV steroids (40 mg IV daily) Patient on telemetry status # Probable Gram-positive/Gram-negative bacterial pneumonia Currently under empiric IV antibiotic (cefepime and vancomycin, previously on azithromycin and ceftriaxone) Ordered cultures (blood, urine and sputum) and MRSA, negative pending COVID and influenza negative # Acute on chronic systolic/diastolic heart failure exacerbation - status post BOILER REPAIR SUPERVISOR-D placement Patient has history of improved HFrEF (LVEF from 20% to 55%) Patient received IV diuretics on admission. IV diuretics p.r.n. She is status post BOILER REPAIR SUPERVISOR-D, currently only in pacemaker mode (defibrillation was turned off due to modified DNR) Echocardiogram: Concentric LVH, LVEF 60-65%, no gross wall motion abnormality, bilateral atrial mild dilation, mild MR and TR, RVSP 28 mmHg, IVC normal size Troponin and BNP negative. Patient does not have atrial lead, EKG shows atrial activity and spike before QRS complex (questionable pacemaker syndrome). Have ordered cardiac device interrogation (completed, but no report, we will repeat test). Cardiology was consulted Last nuclear test reported ejection fraction 47%, low risk study, anterior wall defect in rest and stress imaging # Ruled out pulmonary embolism Positive D-dimer, ordered angio CT, negative for PE, extensive bilateral edema (pneumonia versus edema) Discontinued heparin drip A-a Gradient 17 mmHg adjusted to age (increased) # Type 2 diabetes mellitus - Controlled (hemoglobin A1c 5.9%) Mild sliding scale insulin Patient currently on Ozempic. Indicated on Tuesdays # Dyslipidemia Currently on atorvastatin 40 mg daily # History of anxiety and depression Resume home fluoxetine 60 mg daily # Mildly thickened endometrium in postmenopausal woman Beta hCG mildly elevated (eight) and mildly thickened endometrium (0.2 cm) on pelvic ultrasound. To be evaluated by OBG[facility] as outpatient once acute pathology resolves Critical care time spent including discussion with nursing and family: 62 minutes Goals of care discussed with the patient and at bedside for >25min: Modified DNR/DNI (no chest compression, intubation nor defibrillation) Plan discussed with Dr. Hunt, patient and nurses: Patient currently on telemetry status, on nasal cannula 3 liters/minute. Currently under empiric IV antibiotic (cefepime and vancomycin), IV steroids, bronchodilators, discontinued heparin drip, ordered cardiac device interrogation. Plan discussed with: Patient, Other (Nurses) My Orders My Orders Orders - BETTY YOST RESIDENT Procedure Category Date Status Time Pantoprazole PHA 03/25/24 In Process (Protonix) 10:00 Pt Request For Service PT 03/25/24 Logged 09:16 Hiv 1&2 Antibody LAB 03/25/24 Transmitted 16:08 RPR LAB 03/25/24 Transmitted 16:08 Acute Hepatitis Panel LAB 03/25/24 Transmitted 16:08 Date of Service: Mar 25, 2024 Billing Provider: EARLENE HUNT MD Common Visit Codes: [id number] INP/OBS CARE(HIGH) BETTY YOST RESIDENT Mar 25, 2024 16:14 EARLENE HUNT MD Mar 28, 2024 15:55
[2024-03-25] MEDS: FUROSEMIDE 20 MG/2 ML VIAL IV ONE (18:02)
[2024-03-26] VITALS (11 sets, daily range): BP systolic 108–121; BP diastolic 66–82; PULSE 90–108; RESP 17–18; TEMP 97.9–98.9; O2SAT 90–97
--- NOTE | 2024-03-26 05:50 | DVH ---
EXAM: XR Chest, 1 View CLINICAL INDICATION: Pneumonia vs CHF preogression TECHNIQUE: Frontal view of the chest. COMPARISON: XY CHEST XRAY 1 VIEW on DOS: 03/25/24, XY CHEST XRAY 1 VIEW on DOS: 03/24/24, XY CHEST XR AY 1 VIEW on DOS: 03/23/24, XY CHEST XRAY 1 VIEW on DOS: 03/22/24, XY CHEST XRAY 1 VIEW on DOS: 03/21/24 FINDINGS: LUNGS AND PLEURAL SPACES: See below. HEART: Cardiomegaly with mild congestion. MEDIASTINUM: Unremarkable. Normal mediastinal contour. BONES/JOINTS: Unremarkable. No acute fracture. TUBES, LINES AND DEVICES: Left-sided cardiac pacemaker. OTHER FINDINGS: . None. ... IMPRESSION: Cardiomegaly with mild congestion.
--- NOTE | 2024-03-26 06:13 | DVHPN2 ---
Progress Note - Dictate Date Seen: Mar 26, 2024 Medical Necessity Reason Pt with a Central, PICC or Fol: No vital signs Vital Sign Date Time Temp Pulse Resp B/P (MAP) Pulse Ox O2 Delivery O2 Flow Rate FiO2 03/26/24 06:01 90 18 95 03/26/24 06:01 Nasal Cannula* 3 32 03/26/24 05:00 98.6 121/82 (95) 98.6 Total Intake and Output 03/25/24 03/25/24 03/26/24 15:00 23:00 07:00 Intake Total 300 ml 600 ml 630 ml Balance 300 ml 600 ml 630 ml medications Current Medications Medications Dose Ordered Sig/Thomas Route Start Time Stop Time Status Last Admin Dose Admin Acetaminophen 650 mg Q6HP PRN PO 03/19/24 21:00 03/25/24 13:46 650 MG Fluoxetine HCl 60 mg DAILY PO 03/20/24 10:00 03/25/24 12:08 60 MG Diagnostic Test (Pha) 1 strip ACHS 03/19/24 22:00 03/25/24 21:11 1 STRIP Insulin Human Regular ACHS SC 03/19/24 22:00 03/25/24 17:00 3 UNITS Dextrose 50 ml UD PRN IV 03/19/24 21:30 Vancomycin HCl 0 ml @ 0 mls/hr UD IV 03/20/24 09:30 Cefepime HCl 50 ml @ 12.5 mls/hr Q8HR IV 03/20/24 14:00 03/26/24 05:01 12.5 MLS/HR Atorvastatin Calcium 40 mg HS PO 03/20/24 22:00 03/25/24 21:05 40 MG Enoxaparin Sodium 40 mg DAILY SC 03/21/24 10:00 03/25/24 12:10 40 MG Trolamine Salicylate 1 applic Q6HP TOP 03/21/24 18:00 03/26/24 05:11 1 APPLIC Ipratropium Liberty 0.5 mg Q6HWA NEB 03/21/24 18:00 03/26/24 06:01 0.5 MG Levalbuterol HCl 0.625 mg Q6HR NEB 03/21/24 18:00 03/26/24 06:01 0.625 MG Oxycodone/ Acetaminophen 2 tab Q8HP PRN PO 03/23/24 13:00 03/25/24 21:08 2 TAB Patient Own Medication 15 tab HS PO 03/24/24 10:00 03/25/24 21:05 15 TAB Methylprednisolone Sodium Succinate 40 mg DAILY IV 03/24/24 07:30 03/25/24 12:09 40 MG Gabapentin 300 mg TID PO 03/24/24 14:00 03/26/24 05:01 300 MG Pantoprazole Sodium 40 mg DAILY IV 03/25/24 10:00 03/25/24 12:09 40 MG Vancomycin HCl 250 ml @ 200 mls/hr Q15H IV 03/25/24 10:00 03/26/24 01:53 200 MLS/HR Patient Own Medication 300 mg DAILY PO 03/26/24 10:00 Furosemide 20 mg DAILY IV 03/26/24 10:00 laboratory and microbiology Test 03/26/24 05:28 Range/Units Serum Glucose Pending Assessment/Plan Patient was a 53-year-old female who presented with few weeks of shortness of breaths/cough. She did have sick contact at home. Problem worsened and she decided to come to the hospital. In emergency room, oxygen saturation was 77% and was started on high-flow oxygen. Does have history of cardiomyopathy and does have BiV-ICD (Biotronik) implantation from before. Patient was taken to our office as outpatient and cardiology was involved for cardiac aspect of care. Denies chest pains. Denies loss of consciousness. It was of note that the patient decided few years ago to turn off the defibrillator power of the device and uses if as pacemaker. Patient has been on antibiotics as outpatient also. Obese lady. On high-flow oxygen. No JVD. Mucosa is pink and wet. Lungs reveals scattered rhonchi in crackles. Cardiac: Regular, systolic murmur 2/6 and apex is heard. Abdomen is soft. There was no gross mass. There is no hepatomegaly. Extremities do not reveal edema. Dorsalis pedis is 2+ bilateral Past medical history includes diabetes mellitus, obesity, anxiety disorder, depression, heart failure, cardiomyopathy, status post BiV-ICD implantation (Biotronik), status post cholecystectomy, appendectomy and bilateral breast reduction. It was of note that the patient was decided to turn off the defibrillator capacity of the device few years back and continues using it as pacemaker. Echocardiogram (performed in the office) of June 13, 2022 at reported mild concentric left ventricular hypertrophy, ejection fraction 55-60%, mild left atrial enlargement, mild MR/TR and right ventricular systolic pressure of less than 30 mm Hg Echocardiogram of December 04, 2023 had reported ejection fraction of 55%. Nuclear stress test of January 22, 2024 (performed in [facility]) reported ejection fraction 47%, low risk study, anterior wall defect in rest and stress imaging D-dimer: 1.12 BNP: 96.47 Troponin (high sensitive): 7 - 7 Beta HC.1 Urine toxicology was non-revealing Chest x-ray reported: FINDINGS: Lines and Tubes: Anterior fusion lower cervical spine. Pulse generator over place. Lungs: Mildly prominent pulmonary vascular markings. Pleura: No effusion. No pneumothorax. Cardiomediastinal contours: Cardiac size appears enlarged Bones: No acute osseous abnormality. IMPRESSION: 1. Findings may represent congestive failure or pneumonia. CTA of lungs reported: IMPRESSION: 1. No pulmonary emboli, aortic aneurysm or dissection. 2. Extensive bilateral pulmonary opacities that may represent pneumonia or edema. No pleural effusion. Mild cardiomegaly noted. Recommend clinical and biochemical correlation. Pelvic ultrasound revealed: Impression: 1. Uterus grossly unremarkable with endometrial thickness of 0.2 cm. Given elevated beta HCG and patient is postmenopausal, recommend contrast enhanced MRI for further evaluation. 2. Right ovary is within normal limits with normal color flow. EKG reveals sinus rhythm Echo reported: Left ventricle: Borderline concentric left ventricular hypertrophy was seen. LVEF was 60-65%. There was no gross wall motion abnormality. Right ventricle was normal sized with normal systolic function. Both atria were mildly dilated. Aortic valve: Aortic valve was trileaflet. There was no aortic insufficiency/stenosis. There was mild mitral/tricuspid regurgitation. Mild mitral annular calcification was seen. Pulmonary valve revealed mild insufficiency. IVC was normal sized with normal respiratory evaluation. Right ventricular systolic pressure was assessed at 28 mm Hg. [employer] interrogation revealed: Battery status: MOS1; Remaining battery capacity: 62%; DDD/BIV: 60/130; Pulse amplitude: RV 3.5/LV 3.5 volts; Sensing amplitude: A 4.3/RV 18.7/LV 19.1 mV; Pacing impedance: RV 518/LV 1143 Ohms; Shock impedance: 77 Ohms; Pacing a/LV/Bi V/[employer]: ----/0/100/100%; Atrial burden: 0%; No episodes; Normal functioning BiV Patient was a 53-year-old female with history of cardiomyopathy who presented with few weeks of worsening shortness breath and cough. Was found to have low oxygen saturation and is found to have acute respiratory failure. Presentation is more likely in favor of pneumonia/bronchitis. Does have history of heart failure but clinically heart failure is not significantly decompensated. Mild component of acute on chronic heart failure can not be ruled out. Acute respiratory failure Pneumonia, community-acquired Obesity, morbid Cardiomyopathy Acute on chonic Diastolic heart failure Status post BiV ICD implantation (Biotronik) Cardiac suggestion for management: Manage on Tele Follow up electrolytes and kidney function tests and correct abnormalities Evaluation and management of respiratory failure/pneumonia as per primary team Evaluation and management of minimal increase Beta HCG as per primary team. Consider [employer] evaluation. Further evaluation and management depends on the above and clinical course Cardiac moody, stable A total of 55 minutes was spent reviewing the patient record, examining the patient, making a diagnostic and therapeutic plan, discussing this plan with medical personnel, following up on diagnostic studies and following the patient for clinical stability excluding any and all procedures. At least 50% of this time was spent in direct, [id number] contact. Thank you for allowing me to participate in this patient's care. Further recommendations will depend on patient's clinical course. Please do not hesitate to contact me if you have any questions or concerns. This medical document was created using electronic medical record system with [employer] computerized dictation system. Although this document has been carefully reviewed, there may still be some phonetic and typographical errors. These areas are purely typographical due to the imperfection of the software programs, and do not reflect any compromise in the patient's medical care. Plan discussed with: Patient, Other (nurse) ANTONIETA GREEN MD Mar 26, 2024 06:13
[2024-03-26 06:30] LABS: Anion Gap 9 (5-15); Carbon Dioxide 28 mmol/L (20-31); Chloride 102 mmol/L (98-107); Potassium 3.7 mmol/L (3.5-5.1); Sodium 139 mmol/L (136-145)
[2024-03-26 06:32] LABS: Calcium 10.2 mg/dL (8.7-10.4)
[2024-03-26 06:36] LABS: BUN/Creatinine Ratio 24.7 (10.0-20.0); Blood Urea Nitrogen 21 mg/dL (9-23); Glucose 90 mg/dL (74-106)
[2024-03-26 07:13] LABS: Basophils # (auto) 0.1 10 ^3/uL (0-0.2); Basophils % (auto) 1.2 % (0.0-2.0); Eosinophils # (auto) 0.1 10 ^3/uL (0-0.8); Eosinophils % (auto) 1.1 % (0.0-7.0); Hematocrit 43.4 % (36.0-46.0); Hemoglobin 14.4 g/dL (12.2-16.2); Lymphocytes # (auto) 2.6 10 ^3/uL (0.4-5.4); Lymphocytes % (auto) 23.9 % (10.0-50.0); Mean Corpuscular Hemoglobin 32.7 pg (28.0-32.0); Mean Corpuscular Hgb Conc. 33.2 g/dL (32.0-36.0); Mean Corpuscular Volume 98.4 fL (80.0-100.0); Monocytes # (auto) 0.7 10 ^3/uL (0-1.3); Neutrophils # (auto) 7.4 10 ^3/uL (1.6-8.6); Neutrophils % (auto) 67.8 % (37.0-80.0); Nucleated Red Blood Cells % 0.2 %; Platelet Count (auto) 315 10^3/uL (140-450); Red Blood Cells 4.41 10^6/uL (4.0-5.20); Red Cell Distribution Width 12.9 % (11.8-14.3)
[2024-03-26] MEDS: BUPROPION XL 300 MG PO SCH (10:00)
[2024-03-26] MEDS ORDERED: FUROSEMIDE 20 MG/2 ML VIAL IV SCH (10:00)
[2024-03-26] MEDS: FUROSEMIDE 20 MG TAB PO SCH (10:33)
[2024-03-26] MEDS: CARVEDILOL 3.125 MG TAB PO SCH (10:33)
[2024-03-26] MEDS: EMPAGLIFLOZIN 10 MG TAB PO SCH (10:35)
[2024-03-26] MEDS ORDERED: EMPA1TAB PO (11:27)
[2024-03-26] MEDS ORDERED: CARV-214 PO (11:27)
[2024-03-26] MEDS ORDERED: ACET-1882 PO (11:27)
[2024-03-26] MEDS ORDERED: SACU1TAB PO (11:27)
[2024-03-26] MEDS ORDERED: LEVO500T91 PO (11:27)
[2024-03-26] MEDS ORDERED: PRED20TA2 PO (11:27)
[2024-03-26] MEDS ORDERED: FURO20TA4 PO (11:27)
[2024-03-26] MEDS ORDERED: ATOR20TA50 PO (11:27)
--- NOTE | 2024-03-26 11:28 | DVHDSRES ---
Discharge Summary Date of Admission Resident Creating Document: BETTY YOST RESIDENT Mar 19, 2024 at 20:46 Date of Discharge: Mar 26, 2024 Labs/Diagnostic Data: Laboratory Results Test 03/26/24 05:28 03/25/24 17:49 03/25/24 17:29 03/25/24 04:26 White Blood Count 11.0 10^3/uL (4.4-10.8) Red Blood Count 4.41 10^6/uL (4.0-5.20) Hemoglobin 14.4 g/dL (12.2-16.2) Hematocrit 43.4 % (36.0-46.0) Mean Corpuscular Volume 98.4 fL (80.0-100.0) Mean Corpuscular Hemoglobin 32.7 pg (28.0-32.0) Mean Corpuscular Hemoglobin Concent 33.2 g/dL (32.0-36.0) Red Cell Distribution Width 12.9 % (11.8-14.3) Platelet Count 315 10^3/uL (140-450) Mean Platelet Volume 7.4 fL (6.9-10.8) Neutrophils (%) (Auto) 67.8 % (37.0-80.0) Lymphocytes (%) (Auto) 23.9 % (10.0-50.0) Monocytes (%) (Auto) 6.0 % (0.0-12.0) Eosinophils (%) (Auto) 1.1 % (0.0-7.0) Basophils (%) (Auto) 1.2 % (0.0-2.0) Neutrophils # (Auto) 7.4 10 ^3/uL (1.6-8.6) Lymphocytes # (Auto) 2.6 10 ^3/uL (0.4-5.4) Monocytes # (Auto) 0.7 10 ^3/uL (0-1.3) Eosinophils # (Auto) 0.1 10 ^3/uL (0-0.8) Basophils # (Auto) 0.1 10 ^3/uL (0-0.2) Nucleated Red Blood Cells 0.2 % Sodium Level 139 mmol/L (136-145) Potassium Level 3.7 mmol/L (3.5-5.1) Chloride Level 102 mmol/L (98-107) Carbon Dioxide Level 28 mmol/L (20-31) Anion Gap 9 (5-15) Blood Urea Nitrogen 21 mg/dL (9-23) Creatinine 0.85 mg/dL (0.550-1.02) Glomerular Filtration Rate Calc 82 mL/min (>90) BUN/Creatinine Ratio 24.7 (10.0-20.0) Serum Glucose 90 mg/dL (74-106) Calcium Level 10.2 mg/dL (8.7-10.4) HIV (1&2) Antibody Negative (Negative) Random Vancomycin Level 11.8 ug/mL (5-10) Test 03/24/24 14:50 03/24/24 06:49 03/23/24 05:53 03/22/24 15:00 Blood Gas Specimen Type Arterial Blood Gas Sample Site Right radial Blood Gas Patient Temperature 37.0 Arterial Blood Date Drawn [id number] Arterial Blood pH 7.462 (7.350-7.450) Arterial Blood Partial Pressure CO2 29.6 mmHg (32.0-45.0) Arterial Blood Partial Pressure O2 48.9 mmHg (83.0-108.0) Arterial Blood HCO3 20.7 mmol/L (21.0-28.0) Arterial Blood Oxygen Saturation 87.0 % (94.0-98.0) Arterial Blood Base Excess -1.9 mmol/L (-2.0-3.0) Arterial Blood Oxyhemoglobin 85.9 % (94.0-98.0) Arterial Blood Carboxyhemoglobin 0.8 % (0.5-1.5) Arterial Blood Methemoglobin 0.5 % (0.0-1.5) Porfirio Test Yes Blood Gas Total Hemoglobin 14.10 g/dL (12.0-16.0) Blood Gas Modality Room air FiO2 % 21.0 Specimen Drawn By Blood Gas Critical Value Read Back Yes Blood Gas Notified Whom Dr. georgia yost Blood Gas Notified Time [id number] Blood Gas Notified By Vancomycin Level Trough 23.0 ug/mL (5-10) Phosphorus Level 4.2 mg/dL (2.4-5.1) Magnesium Level 2.1 mg/dL (1.6-2.6) Blood Gas Liter Flow 40.00 Test 03/22/24 05:30 03/22/24 05:26 03/21/24 08:34 03/21/24 05:58 Differential Total Cells Counted 100.0 (100) Neutrophils % (Manual) 87 (37.0-80.0) Band Neutrophils % (Manual) 2 Lymphocytes % (Manual) 7 (10.0-50.0) Monocytes % (Manual) 4 (0-12) Eosinophils % (Manual) 0 (0-7) Basophils % (Manual) 0 (0.0-2.0) Metamyelocytes % (manual) 0 Myelocytes % (Manual) 0 Promyelocytes % (Manual) 0 Blast Cells % (Manual) 0 Reactive Lymphocytes 0 Platelet Estimate Adequate POC Glucose 159 mg/dl (70-106) Prothrombin Time 12.3 sec (9.3-11.8) Prothrombin Time INR 1.18 (0.9-1.15) Activated Partial Thromboplast Time 30.2 SEC (24.5-34.5) Free Thyroxine (T4) Calculated 0.89 ng/dL (0.89-1.76) Total Triiodothyronine (TT3) 0.80 ng/mL (0.60-1.81) Lactic Acid Level 1.4 mmol/L (0.4-2.0) Total Bilirubin 0.4 mg/dL (0.2-1.0) Aspartate Amino Transferase (AST) 43 U/L (13-40) Alanine Aminotransferase (ALT) 13 U/L (7-40) Alkaline Phosphatase 105 U/L (46-116) Total Protein 6.7 g/dL (5.7-8.2) Albumin 4.1 g/dL (3.2-4.8) Thyroid Stimulating Hormone (TSH) 0.40 uIU/mL (0.55-4.78) Beta HCG, Quantitative 8.1 mIU/mL (1.5-4.2) Test 03/20/24 04:08 03/20/24 00:35 03/19/24 23:00 03/19/24 20:07 Influenza Type A Antigen Negative (Negative) Influenza Type B Antigen Negative (Negative) SARS-CoV-2 Antigen (Rapid) Negative (NEGATIVE) D-Dimer, Quantitative 1.12 mg/L FEU (0.0-0.49) Urine Color Yellow (Yellow) Urine Clarity Clear (Clear) Urine pH 6.0 (5.0-9.0) Urine Specific [place] 1.022 (1.001-1.035) Urine Protein Trace (Negative) Urine Ketones Trace (Negative) Urine Blood Negative /uL (Negative) Urine Nitrite Negative (Negative) Urine Bilirubin Negative (Negative) Urine Urobilinogen 4 mg/dL (Negative) Urine Leukocyte Esterase 1+ /uL (Negative) Urine RBC 12 /hpf (0 - 4) Urine Microscopic WBC 9 /HPF (0-5) Urine Squamous Epithelial Cells Few /hpf (<5) Urine Bacteria None seen /hpf (None Seen) Urine Glucose Normal mg/dL (Normal) Urine Opiates Screen Neg (NEGATIVE) Urine Fentanyl Screen Neg (NEGATIVE) Urine Barbiturates Screen Neg (NEGATIVE) Urine Phencyclidine Screen Neg (NEGATIVE) Urine Amphetamines Screen Neg (NEGATIVE) Urine Benzodiazepines Screen Neg (NEGATIVE) Urine Cocaine Screen Neg (NEGATIVE) Urine Cannabinoids Screen Neg (NEGATIVE) Troponin I High Sensitivity 7 ng/L (</=34) Test 03/19/24 19:08 Hemoglobin A1c 5.9 % A1C (<5.7) B-Type Natriuretic Peptide 96.47 pg/mL (0-100) Triglycerides Level 85 mg/dL (< 150) Cholesterol Level 85 mg/dL (< 200) LDL Cholesterol 23 mg/dL (< 100) HDL Cholesterol 40 mg/dL (40-59) Other Laboratory Tests 03/26/24 05:28 Brief Hx & Hospital Course: Taylor Coleman is a 53-year-old female who presented to the ED due to progressive dyspnea from functional class I to functional class IV in the past 3 weeks, associated with dry cough and lightheadedness. Patient reports presenting upper respiratory infection which started three weeks ago, he got better but she has been getting progressively worse prompting her visit to the ED. The patient also reported that she went to the urgent care in the past weekend and was prescribed corticosteroids and sent home. When patient arrived to the ED she was saturating 75% in room air with requirement of oxygen therapy with non-rebreather mask. Denies fever, chills, chest pain, palpitation, syncope, nausea, vomiting, diarrhea, recent travel and motor or sensory deficits. Past medical history: Dyslipidemia, obesity, diabetes, history of cardiomyopathy with HFrEF which is improved (per patient previous LVEF 20%, currently 55%) status post ANALYTICAL SCIENCES DIRECTOR-D ([employer]) which defibrillator currently deactivated and only has pacing mechanism, anxiety, depression, stress test on January 25, 2024 low risk study (per silk screen printer machine) Surgical history: Three fusions of the cervical vertebra, to fusion of the lumbar vertebra, cholecystectomy 20 years ago, appendectomy when patient was a child, bilateral breast reduction, ANALYTICAL SCIENCES DIRECTOR-D (no atrial lead) placed in 2019 Family history: Noncontributory Social history: [place]. Recently quit smoking tobacco three weeks ago (30 pack-year history of smoking). Denies current alcohol and other drug abuse. Home Medications: Ozempic 1 mg once a week, pravastatin 40 mg daily, fenofibrate 124 mg daily, Entresto 24-26 mg one tab b.i.d., carvedilol 25 mg daily, fluoxetine 60 mg daily. Patient stated that her silk screen printer machine Dr. Wiley Brief hospital course: Acute hypoxic respiratory failure likely due to Gram-positive/Gram-negative bacterial pneumonia/atypical pneumonia and acute on chronic diastolic congestive heart failure, responding to IV steroids, IV antibiotics (cefepime, vancomycin, azithromycin and ceftriaxone, discharged with levofloxacin), bronchodilators, IV diuretics and oxygen therapy with the (highest dose on high-flow FiO2 75% with flow of 60 liters/minute). Completed Angio CT which ruled out pulmonary embolism and evidence extensive bilateral infiltration (pneumonia versus edema), also completed echocardiogram which showed concentric LVH, LVEF 60-65%, no gross wall motion abnormalities, bilateral atrial dilation mild, mild MR/TR, normal size IVC. Cardiology on board, indicated cardiac device interrogation which was normal functioning (ICD and ANALYTICAL SCIENCES DIRECTOR is deactivated due to patient's wish of DNR/DNI). Patient is a modified DNR DNI (no chest compressions, defibrillations nor intubation). Patient was down titrated to nasal cannula 3 liters/minute, currently qualify for home oxygen. During hospitalization hCG is a obtained which was mildly elevated (eight), completed pelvic ultrasound which showed thickened endometrium (0.2 cm), recommend evaluation by hot iron worker doctor as outpatient to rule out malignancy and postmenopausal woman with 2nd endometrium. Patient hemodynamically stable, asymptomatic, with requirement of home oxygen with nasal cannula 3 liters/minute, in condition to be discharged once oxygen gets at bedside. Was granted under optimal medical therapy (levofloxacin and prednisone for five days), gave advice on healthy lifestyle habits, and follow up as outpatient with PCP, silk screen printer machine, community health program representative and hot iron worker specialist. DIAGNOSIS # Acute hypoxic respiratory failure likely due to Gram-positive/Gram-negative bacterial pneumonia/atypical pneumonia versus acute on chronic diastolic congestive heart failure # Probable Gram-positive/Gram-negative bacterial pneumonia # Acute on chronic systolic/diastolic heart failure exacerbation - status post ANALYTICAL SCIENCES DIRECTOR-D placement (currently deactivated and just has pacemaker function) # Nonischemic cardiomyopathy # Ruled out pulmonary embolism # Type 2 diabetes mellitus - Controlled (hemoglobin A1c 5.9%) # Dyslipidemia # History of anxiety and depression # Mildly thickened endometrium in postmenopausal woman # Questionable COPD Examination Patient lying in bed, in no acute distress General: Lucid, afebrile, mucosae are moist Cardiovascular: Tachycardia. Normal S1 and S2. No murmurs, gallops or rubs, no JVD. Respiratory: Normal ventilation mechanics, no use of accessory muscles of breathing at this moment. Clear lung sounds on auscultation, currently on nasal cannula at 3 liters/minute Abdomen: Soft, nontender, no organomegaly, normal bowel sounds MSK/skin: Mobilizes 4 limbs. Skin is dry and warm. Neurological: Oriented in 3 spheres. No motor no sensitive deficits. Pupils are isocoric and reactive Goals of care discussed with the patient and at bedside for >25min: Modified DNR/DNI (no chest compression, intubation nor defibrillation) Plan discussed with Dr. Hunt, patient and nurses Operations or Procedures EXAM: Two-dimensional and M-mode echocardiogram with Doppler and color Doppler. Blood Pressure: 96/57 mmHg INDICATION CHF, no baseline echo RISK FACTORS Height: 5'6, Weight: 230 DIMENSIONS LVDd 5.4 (3.8-5.7cm) LA (2D) 4.0 (1.9-4.0cm) Aortic Root 3.1 (2.0- 3.7cm) LVDs 3.5 (2.5-4.0cm) LA (MM) (1.9-4.0cm) Aortic Cusp Exc 1.6 (1.5- 2.0cm) EF (%) 60.0 (55-70%) Rt. Atrium 4.1 (1.9-4.0cm) Asc. Aorta 3.1 cm IVSd 1.1 (0.7-1.1cm) RV (D) 4.1 (1.8-2.4cm) PWd 0.9 (0.7-1.1cm) Mitral Valve Mitral Mitral Stenosis E wave 1.04m/s MV Mean GR. mmHg A wave 1.02m/s MV Peak GR. 80mmHg E/A ratio 1.0 2D MVA cm2 DECEL Time 95ms PRESS 1/2 Time ms Aortic Valve Aortic Valve Aortic Stenosis V1 1.21m/s AO Mean GR. 7mmHg V2 1.67m/s AO Peak GR. 11mmHg LVOT Diameter 2.1 (1.8-2.4cm) Doppler HEVER 2.51cm2 Pulmonic Valve V2 1.28m/s Tricuspid Valve TR Velocity 2.50m/s RVSP 28mmHg Other Information Quality : Technically Difficult Rhythm : Technically limited study due to pt sitting up, SOB Conclusion Left ventricle: Borderline concentric left ventricular hypertrophy was seen. LVEF was 60-65%. There was no gross wall motion abnormality. Right ventricle was normal sized with normal systolic function. Both atria were mildly dilated. Aortic valve: Aortic valve was trileaflet. There was no aortic insufficiency/stenosis. There was mild mitral/tricuspid regurgitation. Mild mitral annular calcification was seen. Pulmonary valve revealed mild insufficiency. IVC was normal sized with normal respiratory evaluation. Right ventricular systolic pressure was assessed at 28 mm Hg. SIGNED BY: ANTONIETA GREEN MD SIGNED DATE/TIME: 03/20/241832 CHEST RADIOGRAPH Indication: sob Technique: Single frontal view of the chest was obtained Comparison: None FINDINGS: Lines and Tubes: Anterior fusion lower cervical spine. Pulse generator over place. Lungs: Mildly prominent pulmonary vascular markings. Pleura: No effusion. No pneumothorax. Cardiomediastinal contours: Cardiac size appears enlarged Bones: No acute osseous abnormality. IMPRESSION: 1. Findings may represent congestive failure or pneumonia. HS:Y ATED BY: LEIGH PALMER Jr., DO DICTATED DATE/TIME: 03/19/241936 PROCEDURE: CT CT ANGIO CHEST CONTRAST 03/20/2024 08:24 PM INDICATION: RULE OUT PE COMPARISON: None TECHNIQUE: Coverage: Thorax IV contrast: Administered Phases: Arterial Multiplanar 3-D Maximum Intensity Projection images (MIP) reconstructions were created by the technologist in the coronal and sagittal planes as part of the CT angiography protocol. Adverse events: None Medication laboratory values were reviewed to verify the patient meets criteria for contrast administration. All CT scans at this medical facility are performed using dose modulation techniques as appropriate to a performed exam including the following: Automated exposure control was utilized; adjustment of the MA and/or KV according to patient size; and use of iterative reconstruction technique. Radiation dose: CTDIvol 28, 28 mGy, DLP 2248 mGy*cm. FINDINGS: Cardiovascular: No evidence of acute or chronic pulmonary emboli identified. Aorta is normal in caliber. Mild scattered calcified plaques of the aortic arch are noted. Retropharyngeal aberrant right subclavian artery noted The heart is mildly enlarged. Left upper chest wall multi lead pacemaker with leads extending to the right cardiac chambers. Lungs: Extensive bilateral pulmonary opacities are seen most prominent in the left lower lobe. No pleural effusion. No pneumothorax. The airways are patent. Thyroid: Unremarkable. Esophagus: Unremarkable. Lymphatics: No hilar or mediastinal lymphadenopathy. Bones/soft tissues: No acute abnormality. Upper abdomen: No acute abnormality. Gallbladder surgically absent. A subcentimeter nonobstructing stone seen in the right kidney. Other: None. IMPRESSION: 1. No pulmonary emboli, aortic aneurysm or dissection. 2. Extensive bilateral pulmonary opacities that may represent pneumonia or edema. No pleural effusion. Mild cardiomegaly noted. Recommend clinical and biochemical correlation. ATED BY: PARI FOSTER MD DICTATED DATE/TIME: 03/20/242117 EXAM: US PELVIC CLINICAL HISTORY: ELEVATED HCG, UNKNOWN REASON TECHNIQUE: Transabdominal ultrasound of the pelvis with color Doppler flow as clinically indicated. COMPARISON: None Findings: Same-day quantitative beta-hCG is 8.1. Uterus measures 8.2 x 2.9 x 3.3 cm in size with relatively homogeneous echotexture and normal contours. Endometrial thickness measures 0.2 cm with smooth contour. Cervix appears grossly unremarkable. Right ovary measures 2.6 x 1.1 x 1.6 cm. Left ovary not visualized. Normal right ovarian color Doppler flow. No free fluid in the cul-de-sac. Impression: 1. Uterus grossly unremarkable with endometrial thickness of 0.2 cm. Given elevated beta HCG and patient is postmenopausal, recommend contrast enhanced MRI for further evaluation. 2. Right ovary is within normal limits with normal color flow. ATED BY: MARGUERITE HENDRICKS DO DICTATED DATE/TIME: 03/22/24 1414 Condition at Discharge: Fair Final Diagnosis/Problems List # Acute hypoxic respiratory failure likely due to Gram-positive/Gram-negative bacterial pneumonia/atypical pneumonia versus acute on chronic diastolic congestive heart failure # Probable Gram-positive/Gram-negative bacterial pneumonia # Acute on chronic systolic/diastolic heart failure exacerbation - status post ANALYTICAL SCIENCES DIRECTOR-D placement (currently deactivated and just has pacemaker function) # Nonischemic cardiomyopathy # Ruled out pulmonary embolism # Type 2 diabetes mellitus - Controlled (hemoglobin A1c 5.9%) # Dyslipidemia # History of anxiety and depression # Mildly thickened endometrium in postmenopausal woman # Questionable COPD Discharge Disposition: Home Discharge Instruct/Medications Diet: Cardiac 2g Na,low cholest Activity: No Restrictions, As Tolerated Follow Up/Referral: PCP Cardiology Pulmonology OBG[facility]N Medications: Levofloxacin and prednisone for 5 more days Discharge Statement: "Patient was advised to return to the ER or call 911 if any headaches, dizziness, shortness of breath, chest pain, abdominal pain, bleeding, fevers, or worsening of medical condition. Patient was counseled about treatment plan, medications, possible side effects, patientverbalized understanding. All questions were answered to the best of my ability. This discharge took greater then 30 minutes in planning, reviewing documentation, counseling the patient, and discussing with other team members." ASSESSMENT ASSESSMENT Assessment Acute respiratory failure secondary to pneumonia gram+ vs gram - Date of Service: Mar 26, 2024 Billing Provider: EARLENE HUNT MD Common Visit Codes: 85865-MEG/OBS DISCH DAY >30min BETTY YOST RESIDENT Mar 26, 2024 11:28 EARLENE HUNT MD Mar 28, 2024 15:56
[2024-03-26 11:48] LABS: Base Excess 2.3 mmol/L (-2.0-3.0)
[2024-03-27 07:07] LABS: RPR Non Reactive (Non Reactive)
[2024-03-27 09:27] LABS: Hepatitis B Surface Antigen Negative (Negative)
--- NOTE | 2024-03-27 09:51 | ECG ---
[facility] Test Date: 2024-03-25 Test Time: 18:23:45 Pat Name: ESTRELLA MAGANA [facility] F [employer] Supervisor: wandy : 1970 Requested By: BETTY YOST Order Number: [id number] Reading MD: Tyrese Avendano Measurements Intervals [place] Rate: 85 P: 23 AK: 148 QRS: -50 QRSD: 164 T: 50 QT: 446 QTc: 531 Interpretive Statements Atrial-sensed ventricular-paced complexes No further analysis attempted due to paced rhythm Electronically Signed On 03-27-2024 21:07:12 PST by Tyrese Avendano Please click the below link to view image of tracing.
[2024-03-27 10:01] LABS: Hepatitis A Ab IgM Negative; Hepatitis B Core IgM Negative (Negative); Hepatitis C Antibody Negative (Negative)
== END 2024-03-26 18:00 | disposition home or self-care (01) | DRG 177 ==
LOC: ER 18:32 → EDUNIT# 20:46 → OVERFLOW 20:46 → ICU CENTRL 03-21 18:45 → TELE-WESTW 03-23 18:00
PROVIDERS: ADMIT Student in an Organized Health Care Education/Training Program; ATTEND Internal Medicine
PROC: 5A0935A Assistance with Respiratory Ventilation, Less than 24 Consecutive Hours, High Flow/Velocity Cannula (ICD-10-PCS; 2024-03-20)
PROC: 5A0935A Assistance with Respiratory Ventilation, Less than 24 Consecutive Hours, High Flow/Velocity Cannula (ICD-10-PCS; 2024-03-21)
PROC: 4B02XTZ Measurement of Cardiac Defibrillator, External Approach (ICD-10-PCS; principal; 2024-03-25)
DX: J15.69 Pneumonia due to other Gram-negative bacteria (principal); I50.43 Acute on chronic combined systolic (congestive) and diastolic (congestive) heart failure; J96.01 Acute respiratory failure with hypoxia; I42.8 Other cardiomyopathies; J44.0 Chronic obstructive pulmonary disease with (acute) lower respiratory infection; I11.0 Hypertensive heart disease with heart failure; J15.9 Unspecified bacterial pneumonia; E11.9 Type 2 diabetes mellitus without complications; F32.A Depression, unspecified; R93.89 Abnormal findings on diagnostic imaging of other specified body structures; E66.01 Morbid (severe) obesity due to excess calories; Z20.822 Contact with and (suspected) exposure to COVID-19; F41.9 Anxiety disorder, unspecified; Z87.891 Personal history of nicotine dependence; Z90.49 Acquired absence of other specified parts of digestive tract; Z68.37 Body mass index [BMI] 37.0-37.9, adult; E78.5 Hyperlipidemia, unspecified; J44.9 Chronic obstructive pulmonary disease, unspecified
CPT/HCPCS: 36415; 36600; 71045; 71275; 76856; 80048; 80053; 80061; 80074; 80202; 80307; 81001; 82805; 82962; 83036; 83605; 83735; 83880; 84100; 84439; 84443; 84480; 84484; 84702; 85007; 85025; 85027; 85379; 85610; 85730; 86592; 86703; 87040; 87070; 87077; 87081; 87086; 87186; 87205; 87426; 87804; 93005; 93306; 94640; 97163; G0378; J1815; J1885; J2470

== ENCOUNTER → 2024-05-02 | Outpatient (CLI) | payer OTHER ==
[~2024-05-02] MED LIST: ACET-1882 PO; ARIP2TAB PO; ATOR20TA50 PO; BUPR150T8 PO; CARV-214 PO; CYCL-839 PO; EMPA1TAB PO; FENO145T27 PO; FLUO-125 PO; FURO20TA4 PO; GABA-1250 PO; LEVO500T91 PO; MEMA1TAB5 PO; OXYC-963 PO; PRED20TA2 PO; SACU1TAB PO; ZOLP10TA PO
[2024-05-02 06:40] LABS: Urine Bacteria None Seen /hpf (None Seen)
[2024-05-02 06:52] LABS: Basophils # (auto) 0.1 10 ^3/uL (0-0.2); Basophils % (auto) 1.3 % (0.0-2.0); Eosinophils # (auto) 0.2 10 ^3/uL (0-0.8); Eosinophils % (auto) 2.8 % (0.0-7.0); Hematocrit 42.8 % (36.0-46.0); Hemoglobin 14.4 g/dL (12.2-16.2); Lymphocytes # (auto) 2.6 10 ^3/uL (0.4-5.4); Lymphocytes % (auto) 39.5 % (10.0-50.0); Mean Corpuscular Hemoglobin 32.5 pg (28.0-32.0); Mean Corpuscular Hgb Conc. 33.7 g/dL (32.0-36.0); Mean Corpuscular Volume 96.5 fL (80.0-100.0); Monocytes # (auto) 0.7 10 ^3/uL (0-1.3); Monocytes % (auto) 11.2 % (0.0-12.0); Neutrophils # (auto) 2.9 10 ^3/uL (1.6-8.6); Neutrophils % (auto) 45.2 % (37.0-80.0); Nucleated Red Blood Cells % 0.1 %; Platelet Count (auto) 256 10^3/uL (140-450); Red Blood Cells 4.44 10^6/uL (4.0-5.20); Red Cell Distribution Width 13.5 % (11.8-14.3); White Blood Cell 6.5 10^3/uL (4.4-10.8)
[2024-05-02 07:21] LABS: Alanine Aminotransferase 24 U/L (7-40); Albumin 4.6 g/dL (3.2-4.8); Alkaline Phosphatase 72 U/L (46-116); Anion Gap 10 (5-15); BUN/Creatinine Ratio 11.2 (10.0-20.0); Bilirubin, Total 0.5 mg/dL (0.2-1.0); Blood Urea Nitrogen 12 mg/dL (9-23); Calcium 9.8 mg/dL (8.7-10.4); Carbon Dioxide 27 mmol/L (20-31); Chloride 105 mmol/L (98-107); Cholesterol 132 mg/dL (< 200); Glucose 105 mg/dL (74-106); HDL Cholesterol 53 mg/dL (40-59); LDL Cholesterol 35 mg/dL (< 100); Potassium 4.3 mmol/L (3.5-5.1); Sodium 142 mmol/L (136-145)
[2024-05-02 07:22] LABS: Aspartate Aminotransferase 45 U/L (13-40); Triglycerides 151 mg/dL (< 150)
[2024-05-02 07:26] LABS: Folate (Folic Acid) 14.74 ng/mL (>5.38)
[2024-05-02 07:31] LABS: Uric Acid 3.6 mg/dL (3.1-7.8)
[2024-05-02 07:32] LABS: Urine Blood Negative /uL (Negative); Urine Clarity Clear (Clear); Urine Color Light-Yellow (Yellow); Urine Protein, UAD Negative (Negative); Urine Specific Gravity 1.015 (1.001-1.035); Urine Squamous Epithelial Cell FEW /hpf (<5); Urine Urobilinogen Normal (Negative); Urine WBC 1 /HPF (0-5); Urine pH 6.5 (5.0-9.0)
== END | disposition home or self-care (01) ==
LOC: LAB 06:29
PROVIDERS: ATTEND Internal Medicine
DX: E55.9 Vitamin D deficiency, unspecified (principal); R79.89 Other specified abnormal findings of blood chemistry; E61.2 Magnesium deficiency; R94.6 Abnormal results of thyroid function studies; R82.90 Unspecified abnormal findings in urine; R82.79 Other abnormal findings on microbiological examination of urine; D51.9 Vitamin B12 deficiency anemia, unspecified
CPT/HCPCS: 36415; 80053; 80061; 81001; 82306; 82607; 82746; 83036; 84443; 84550; 85025; 87086

== ENCOUNTER 2024-07-28 08:00 | Outpatient (CLI) | payer OTHER ==
[2024-07-28 08:46] LABS: Basophils # (auto) 0 10 ^3/uL (0-0.2); Basophils % (auto) 0.9 % (0.0-2.0); Eosinophils # (auto) 0.4 10 ^3/uL (0-0.8); Eosinophils % (auto) 6.8 % (0.0-7.0); Hematocrit 45.7 % (36.0-46.0); Hemoglobin 15.4 g/dL (12.2-16.2); Lymphocytes # (auto) 1.9 10 ^3/uL (0.4-5.4); Lymphocytes % (auto) 33.7 % (10.0-50.0); Mean Corpuscular Hemoglobin 32.8 pg (28.0-32.0); Mean Corpuscular Hgb Conc. 33.8 g/dL (32.0-36.0); Mean Corpuscular Volume 97.1 fL (80.0-100.0); Monocytes # (auto) 0.5 10 ^3/uL (0-1.3); Monocytes % (auto) 9.5 % (0.0-12.0); Neutrophils # (auto) 2.7 10 ^3/uL (1.6-8.6); Neutrophils % (auto) 49.1 % (37.0-80.0); Platelet Count (auto) 206 10^3/uL (140-450); Red Cell Distribution Width 13.5 % (11.8-14.3); Urine Bacteria FEW /hpf (None Seen); Urine Blood Negative /uL (Negative); Urine Clarity Clear (Clear); Urine Color Yellow (Yellow); Urine Protein, UAD Negative (Negative); Urine Squamous Epithelial Cell FEW /hpf (<5); Urine Urobilinogen Normal (Negative); Urine WBC 5 /HPF (0-5); White Blood Cell 5.6 10^3/uL (4.4-10.8)
[2024-07-28 08:57] LABS: Protein, Urine 11.9 mg/dL (1-14)
[2024-07-28 09:00] LABS: Creatinine, Urine 94.56 mg/dL (30.0-125.0); Creatinine, Urine 95.5 mg/dL (30.0-125.0); Urine Protein/Creatinine Ratio 0.12
[2024-07-28 09:06] LABS: Alanine Aminotransferase 37 U/L (7-40); Albumin 4.6 g/dL (3.2-4.8); Alkaline Phosphatase 92 U/L (46-116); Anion Gap 9 (5-15); Blood Urea Nitrogen 17 mg/dL (9-23); Calcium 10.3 mg/dL (8.7-10.4); Carbon Dioxide 29 mmol/L (20-31); Chloride 104 mmol/L (98-107); LDL Cholesterol 40 mg/dL (< 100); Potassium 4.2 mmol/L (3.5-5.1); Sodium 142 mmol/L (136-145); Total Protein 7.6 g/dL (5.7-8.2)
[2024-07-28 09:07] LABS: Bilirubin, Total 0.5 mg/dL (0.2-1.0); HDL Cholesterol 48 mg/dL (40-59)
[2024-07-28 09:09] LABS: Aspartate Aminotransferase 112 U/L (<34); Glucose 157 mg/dL (74-106); Triglycerides 175 mg/dL (< 150)
[2024-07-28 09:14] LABS: Cholesterol 132 mg/dL (< 200)
[2024-07-28 10:01] LABS: Uric Acid 3.8 mg/dL (3.1-7.8)
[2024-07-28 11:07] LABS: Folate (Folic Acid) 28.05 ng/mL (>5.38)
== END 2024-07-28 17:00 | disposition home or self-care (01) ==
LOC: LAB 08:00
PROVIDERS: ATTEND Internal Medicine
DX: E11.69 Type 2 diabetes mellitus with other specified complication (principal); I50.9 Heart failure, unspecified; I25.10 Atherosclerotic heart disease of native coronary artery without angina pectoris; R74.8 Abnormal levels of other serum enzymes
CPT/HCPCS: 36415; 80053; 80061; 81001; 82043; 82306; 82570; 82607; 82746; 83036; 83735; 84156; 84443; 84550; 85025; 87086

== ENCOUNTER 2024-09-01 07:26 | Outpatient (CLI) | payer OTHER ==
[2024-09-01 08:34] LABS: Hematocrit 44.9 % (36.0-46.0); Hemoglobin 15.6 g/dL (12.2-16.2); Mean Corpuscular Hemoglobin 33.5 pg (28.0-32.0); Mean Corpuscular Volume 96.5 fL (80.0-100.0)
[2024-09-01 08:49] LABS: Alanine Aminotransferase 35 U/L (7-40); Albumin 4.4 g/dL (3.2-4.8); Alkaline Phosphatase 102 U/L (46-116); Anion Gap 8 (5-15); BUN/Creatinine Ratio 15.1 (10.0-20.0); Blood Urea Nitrogen 18 mg/dL (9-23); Calcium 10.2 mg/dL (8.7-10.4); Carbon Dioxide 28 mmol/L (20-31); Chloride 103 mmol/L (98-107); Cholesterol 107 mg/dL (< 200); Potassium 4.7 mmol/L (3.5-5.1); Sodium 139 mmol/L (136-145); Total Protein 7.0 g/dL (5.7-8.2)
[2024-09-01 08:50] LABS: Bilirubin, Direct 0.2 mg/dL (<0.3); Bilirubin, Total 0.5 mg/dL (0.2-1.0)
[2024-09-01 08:52] LABS: Glucose 167 mg/dL (74-106)
[2024-09-01 09:00] LABS: Total Cells Counted 100.0 (100)
[2024-09-01 09:01] LABS: RBC Morphology Normal
== END 2024-09-01 17:00 | disposition home or self-care (01) ==
LOC: LAB 07:26
PROVIDERS: ATTEND Specialist
DX: I10 Essential (primary) hypertension (principal); E78.5 Hyperlipidemia, unspecified; E03.9 Hypothyroidism, unspecified; R73.09 Other abnormal glucose; R68.89 Other general symptoms and signs; D64.9 Anemia, unspecified
CPT/HCPCS: 36415; 80048; 80076; 82465; 83036; 84443; 85007; 85027

== ENCOUNTER 2024-12-06 16:28 | Emergency (ER) | payer OTHER ==
[~2024-12-06] VITALS: Ht 167.6 cm; Wt 111.1 kg
--- NOTE | 2024-12-06 18:49 | DVH ---
CLINICAL HISTORY: head injury pain TECHNIQUE: Helical scanning was performed of the head from the skull base to the vertex. Multiplanar reconstructions were performed. This exam was performed according to our departmental dose optimizat ion program. Up-to-date CT equipment and radiation dose reduction techniques are utilized as appropri ate. CTDI 56 DLP 983 COMPARISON: None FINDINGS: There is no evidence for acute intracranial hemorrhage, acute ischemic changes, mass, mass effect, or extra-axial fluid collection. There is no hydrocephalus or midline shift. There is no effacement of the cerebral sulci and basal subarachnoid cisterns. The blackbunr-white matter differentiation is well scar ntained. There is mild left inferior frontal scalp soft tissue swelling. No fracture seen. The imaged paranasal sinuses are clear. IMPRESSION: Mild left inferior scalp soft tissue swelling. No underlying acute intracranial abnormality seen
[2024-12-06 18:52] LABS: Hematocrit 44.4 % (36.0-46.0); Hemoglobin 15.3 g/dL (12.2-16.2); Mean Corpuscular Hemoglobin 33.8 pg (28.0-32.0); Mean Corpuscular Volume 98.0 fL (80.0-100.0); Nucleated Red Blood Cells % 0.0 %
--- NOTE | 2024-12-06 18:58 | ED.PDOC ---
Maria Guadalupe. trauma (HPI) HPI Comments 54-year-old female who came to ER for fall injury. Patient was at the bathroom earlier when she had the syncopal attack, he her head at the bathroom wall. Patient currently complaining of left-sided headaches, neck pain and left shoulder pain Chief Complaint: Fall Injury Time Seen by MD: 18:58 Reviewed notes: Nurses Notes Allergies: Uncoded Allergies: ADHESIVE (Allergy, Mild, 03/20/24) Home Meds Active Scripts Prednisone (Prednisone) 20 Mg Tab, 20 MG PO DAILY for 5 Days, #5 MG Prov:BETTY YOST [facility] 03/26/24 Levofloxacin Hemihydrate (LEVOFLOXACIN) 500 Mg Tab, 1 TAB PO DAILY for 5 Days, #5 TAB Prov:BETTY YOST [facility] 03/26/24 Furosemide (Furosemide) 20 Mg Tab, 20 MG PO DAILY for 30 Days, #30 TAB Prov:BETTY YOST [facility] 03/26/24 Empagliflozin (Jardiance) 10 Mg Tab, 10 MG PO DAILY for 30 Days, #30 TAB Prov:BETTY YOST [facility] 03/26/24 Sacubitril-Valsartan (Entresto 24-26 mg) 1 Tab Tab, 0.5 TAB PO BID for 30 Days, #30 TAB Prov:BETTY YOST [facility] 03/26/24 Carvedilol (COREG) 3.125 Mg Tab, 3.125 MG PO Q12HR for 30 Days, #60 TAB Prov:BETTY YOST [facility] 03/26/24 Atorvastatin Calcium (ATORVASTATIN CALCIUM) 20 Mg Tab, 40 MG PO HS for 30 Days, #60 TAB Prov:BETTY YOST [facility] 03/26/24 Acetaminophen (Acetaminophen) 325 Mg Tab, 650 MG PO Q6HP PRN for 10 Days, #80 TAB Prov:BETTY YOST [facility] 03/26/24 Reported Medications Memantine Hydrochloride (Memantine HCl) 10 Mg Tab, 10 MG PO BID, TAB 03/22/24 Aripiprazole (Abilify) 2 Mg Tab, 15 TAB PO DAILY, #30 TAB 2 Refills 03/22/24 Bupropion Hcl (Wellbutrin Sr) 150 Mg Tab, 150 MG PO DAILY, TAB 03/22/24 Zolpidem Tartrate (Ambien) 10 Mg Tab, 10 TAB PO QPM, #30 TAB 03/22/24 Gabapentin (Gabapentin) 300 Mg Cap, 300 MG PO TID for 30 Days, MG 03/22/24 Cyclobenzaprine Hcl (Cyclobenzaprine Hcl) 10 Mg Tab, 10 MG PO TID for 30 Days, MG 03/22/24 Oxycodone W/ Acetaminophen (Oxycodone/Acetaminophen 10-300 mg) 1 Tab Tab, 1 TAB PO TID, TAB 03/22/24 Fluoxetine Hcl (Fluoxetine Hcl) 20 Mg Cap, 60 MG PO DAILY for 30 Days, MG 03/22/24 Fenofibrate (FENOFIBRATE) 145 Mg Tab, 124 TAB PO DAILY, #90 TAB 1 Refill 03/22/24 Information Source: Patient Mode of Arrival: Ambulatory Severity: Moderate Timing: Hours Duration: Intermittent Location: Head, Neck, (L) Shoulder Mechanism: Fall Past Medical History PAST MEDICAL HISTORY: Anxiety, CHF, Depression, High Lipids Surgical History: Pacemaker 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 TENDER 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: Unknown Family History Family History: Reviewed,noncontributory to illness Social History Smoker: Non-Smoker Alcohol: Denies ETOH Use Drugs: Denies Drug Use Lives In: Home Constitutional: denies: chills, diaphoresis, fatigue, fever, malaise, sweats, weakness, others EENTM: denies: blurred vision, double vision, ear bleeding, ear discharge, ear drainage, ear pain, ear ringing, eye pain, eye redness, hearing loss, mouth pain, mouth swelling, nasal discharge, nose bleeding, nose congestion, nose pain, photophobia, tearing, throat pain, throat swelling, voice changes, others Respiratory: denies: cough, hemoptysis, orthopnea, SOB at rest, shortness of breath, SOB with excertion, stridor, wheezing, others Cardiovascular: denies: chest pain, dizzy spells, diaphoresis, Dyspnea on exertion, edema, irregular heart beat, left arm pain, lightheadedness, palpitations, PND, syncope, others Gastrointestinal: denies: abdomen distended, abdominal pain, blood streaked bowels, constipated, diarrhea, dysphagia, difficulty swallowing, hematemesis, melena, nausea, poor appetite, poor fluid intake, rectal bleeding, rectal pain, vomiting, others Genitourinary: denies: abnormal vagina bleeding, burning, dyspareunia, dysuria, flank pain, frequency, hematuria, incontinence, pain, , vagina discharge, urgency, others Neurological: reports: dizziness, fainting, headache; denies: left sided numbness, left sided weakness, numbness, paresthesia, pre-existing deficit, right sided numbness, right sided weakness, seizure, speech problems, tingling, tremors, weakness, others Musculoskeletal: reports: joint pain (Left shoulder); denies: back pain, gout, joint swelling, muscle pain, muscle stiffness, neck pain, others Integumetry: denies: bruises, change in color, change in hair/nails, dryness, laceration, lesions, lumps, rash, wounds, others Allergic/Immunocompromised: denies: Difficulty Healing, Frequent Infections, Hives, Itching, others Hematologic/Lymphatic: denies: anemia, blood clots, easy bleeding, easy bruising, swollen glands, others Endocrine: denies: excessive hunger, excessive sweating, excessive thirst, excessive urination, flushing, intolerance to cold, intolerance to heat, unexplained weight gain, unexplained weight loss, others Psychiatric: denies: anxiety, bipolar disorder, depression, hopeless, panic disorder, schizophrenia, sleepless, suicidal, others Physical Exam General Appearance: No Apparent Distress, Normal HEENT: Normal ENT Inspection, Pharynx Normal, TMs Normal Neck: Full Range of Motion, Non-Tender, Normal, Normal Inspection Respiratory: Chest Non-Tender, Lungs Clear, No Accessory Muscle Use, No Respiratory Distress, Normal Breath Sounds Cardiovascular: No Edema, No JVD, No Murmur, No Gallop, Normal Peripheral Pulses, Regular Rate/Rhythm Breast Exam: Deferred Gastrointestinal: No Organomegaly, Non Tender, No Pulsatile Mass, Normal Bowel Sounds, Soft Genitalia: Deferred Pelvic: Deferred Rectal: Deferred Extremities: No calf tenderness, Normal capillary refill, Normal inspection, Normal range of motion, Non-tender, No pedal edema Musculoskeletal : Apperance: Normal Neurologic: Alert, 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 Was a procedure done?: No Differential Diagnosis Multiple Trauma: Closed Head Injury, Fractures, Cerebral Contusion, Spine Injury X-Ray, Labs, Meds, VS Vital Signs Date Time Temp Pulse Resp B/P (MAP) Pulse Ox O2 Delivery O2 Flow Rate FiO2 12/06/24 22:39 81 14 129/79 (96) 12/06/24 20:47 98 Room Air* 0 21 12/06/24 19:52 97.5 85 18 116/71 (86) 94 97.5 12/06/24 16:41 91 12/06/24 16:29 98.7 98 16 146/89 95 98.7 Lab Test 12/06/24 18:35 Range/Units White Blood Count 5.3 4.4-10.8 10^3/uL Red Blood Count 4.53 4.0-5.20 10^6/uL Hemoglobin 15.3 12.2-16.2 g/dL Hematocrit 44.4 36.0-46.0 % Mean Corpuscular Volume 98.0 80.0-100.0 fL Mean Corpuscular Hemoglobin 33.8 H 28.0-32.0 pg Mean Corpuscular Hemoglobin Concent 34.5 32.0-36.0 g/dL Red Cell Distribution Width 13.3 11.8-14.3 % Platelet Count 180 140-450 10^3/uL Mean Platelet Volume 8.2 6.9-10.8 fL Neutrophils (%) (Auto) 48.8 37.0-80.0 % Lymphocytes (%) (Auto) 31.1 10.0-50.0 % Monocytes (%) (Auto) 14.4 H 0.0-12.0 % Eosinophils (%) (Auto) 5.0 0.0-7.0 % Basophils (%) (Auto) 0.7 0.0-2.0 % Neutrophils # (Auto) 2.6 1.6-8.6 10 ^3/uL Lymphocytes # (Auto) 1.7 0.4-5.4 10 ^3/uL Monocytes # (Auto) 0.8 0-1.3 10 ^3/uL Eosinophils # (Auto) 0.3 0-0.8 10 ^3/uL Basophils # (Auto) 0 0-0.2 10 ^3/uL Nucleated Red Blood Cells 0.0 % Prothrombin Time 11.5 9.3-11.8 sec Prothrombin Time INR 1.09 0.9-1.15 Activated Partial Thromboplast Time 29.8 24.5-34.5 SEC D-Dimer, Quantitative 3.17 H 0.0-0.49 mg/L FEU Sodium Level 141 136-145 mmol/L Potassium Level 4.3 3.5-5.1 mmol/L Chloride Level 106 98-107 mmol/L Carbon Dioxide Level 29 20-31 mmol/L Anion Gap 6 5-15 Blood Urea Nitrogen 18 9-23 mg/dL Creatinine 1.33 H 0.550-1.02 mg/dL Glomerular Filtration Rate Calc 48 >90 mL/min BUN/Creatinine Ratio 13.5 10.0-20.0 Serum Glucose 210 H 74-106 mg/dL Calcium Level 10.0 8.7-10.4 mg/dL Magnesium Level 2.2 1.6-2.6 mg/dL Total Bilirubin 0.4 0.2-1.0 mg/dL Aspartate Amino Transferase (AST) 146 H 13-40 U/L Alanine Aminotransferase (ALT) 47 H 7-40 U/L Alkaline Phosphatase 117 H 46-116 U/L Total Protein 7.5 5.7-8.2 g/dL Albumin 4.3 3.2-4.8 g/dL Current Medications Medications (Trade) Dose Ordered Sig/Thomas Route Start Time Stop Time Status Last Admin Sodium Chloride 1,000 ml @ 1,000 mls/hr Q1H ONCE IV 12/06/24 20:00 12/06/24 20:59 DC 12/06/24 20:52 PROCEDURE(s): HWOCT - HEAD WITHOUT CONTRAST REASON: head injury pain ORDER NUMBER(s): [id number], ACCESSION NUMBER(s): [id number] CLINICAL HISTORY: head injury pain TECHNIQUE: Helical scanning was performed of the head from the skull base to the vertex. Multiplanar reconstructions were performed. This exam was performed according to our departmental dose optimization program. Up-to-date CT equipment and radiation dose reduction techniques are utilized as appropriate. CTDI 56 DLP 983 COMPARISON: None FINDINGS: There is no evidence for acute intracranial hemorrhage, acute ischemic changes, mass, mass effect, or extra-axial fluid collection. There is no hydrocephalus or midline shift. There is no effacement of the cerebral sulci and basal subarachnoid cisterns. The blackburn-white matter differentiation is well maintained. There is mild left inferior frontal scalp soft tissue swelling. No fracture seen. The imaged paranasal sinuses are clear. IMPRESSION: Mild left inferior scalp soft tissue swelling. No underlying acute intracranial abnormality seen Time of 1ST Reevaluation: 18:55 Reevaluation 1ST: Unchanged Patient Education/Counseling: Diagnosis, Treatment Family Education/Counseling: Need For Follow Up Departure 1 Departure Time of Disposition: 20:50 Impression: Primary Impression: Sprain of left shoulder Additional Impressions: Syncope and collapse Type 2 diabetes mellitus with hyperglycemia Renal insufficiency Disposition: HOME / SELF CARE / HOMELESS Condition: Stable Discharged With: Self Critical Care Note Critical Care Time?: No Stability Stability form required: No Heart Score Heart Score: Heart Score Response (Comments) Value History N/A 0 EKG N/A 0 Age N/A 0 Risk Factors N/A 0 Troponin N/A 0 Total 0 I personally scribed for ANIVAL CLEANING MD ([email or web address]) on 12/06/24 at 18:58. Electronically submitted by Silvano Kline ([email or web address]). ANIVAL CLEANING MD Dec 06, 2024 18:58
[2024-12-06 18:59] LABS: Albumin 4.3 g/dL (3.2-4.8); Anion Gap 6 (5-15); BUN/Creatinine Ratio 13.5 (10.0-20.0); Blood Urea Nitrogen 18 mg/dL (9-23); Calcium 10.0 mg/dL (8.7-10.4); Carbon Dioxide 29 mmol/L (20-31); Chloride 106 mmol/L (98-107); Magnesium 2.2 mg/dL (1.6-2.6); Potassium 4.3 mmol/L (3.5-5.1); Sodium 141 mmol/L (136-145); Total Protein 7.5 g/dL (5.7-8.2)
[2024-12-06 19:00] LABS: Bilirubin, Total 0.4 mg/dL (0.2-1.0)
[2024-12-06 19:01] LABS: Alanine Aminotransferase 47 U/L (7-40); Alkaline Phosphatase 117 U/L (46-116); Glucose 210 mg/dL (74-106)
--- NOTE | 2024-12-06 19:27 | DVH ---
CHEST RADIOGRAPH Indication: pain witn inspiration s/p fall Technique: Single frontal view of the chest was obtained COMPARISON: XY CHEST XRAY 1 VIEW on DOS: 03/26/24 FINDINGS: Lines and Tubes: Pacemaker/AICD again noted overlying left chest wall. Lungs: Clear Pleura: No pleural effusion or pneumothorax. Cardiomediastinal contours: Unremarkable IMPRESSION: No acute cardiopulmonary abnormality.
[2024-12-06 19:33] LABS: INR 1.09 (0.9-1.15); Partial Thromboplastin Time 29.8 SEC (24.5-34.5); Prothrombin Time 11.5 sec (9.3-11.8)
--- NOTE | 2024-12-06 19:34 | DVH ---
CLINICAL INDICATION: pain fall TECHNIQUE: XY L SHOULDER 2+ VIEW XRAY Comparison: None FINDINGS: No osseous or joint abnormality identified with no fracture or dislocation. Joint spaces are normal. Soft tissues appear unremarkable. IMPRESSION: No abnormality demonstrated.
[2024-12-06 19:52] VITALS: TEMP 97.5
[2024-12-06 20:47] VITALS: O2SAT 98
[2024-12-06] MEDS: SODIUM CHLORIDE 0.9% 1,000 ML IV ONE (20:52)
[2024-12-06] MEDS: IOHEXOL 350 MG/ML 100ML IJ ONE (22:13)
--- NOTE | 2024-12-06 22:28 | DVH ---
COMPUTERIZED TOMOGRAPHIC ANGIOGRAPHY OF THE CHEST WITH INTRAVENOUS CONTRAST REASON FOR EXAM: chest pain / SOB / syncope COMPARISON: XY CHEST XRAY 1 VIEW on DOS: 12/06/24, XY CHEST XRAY 1 VIEW on DOS: 03/26/24, XY CHEST XRAY 1 VIEW on DOS: 03/25/24, XY CHEST XRAY 1 VIEW on DOS: 03/24/24, XY CHEST XRAY 1 VIEW on DOS: 03/23/24 TECHNIQUE: The exam was performed on a multidetector spiral scanner. Spiral images were acquired fro m the thoracic inlet through the adrenal glands, during the bolus intravenous administration of cont rast. Multiplanar maximum intensity projection (MIP) images were provided. Radiation optimization: Al l CT scans at this facility use at least one of these dose optimization techniques: Automated exposur e control mA and/or kV adjustment per patient size (includes targeted exams where dose is matched to clinical indication) or iterative reconstruction. RADIATION DOSE: CTDI: 5.92 mGy DLP: 915.96 mGy-cm FINDINGS: There is mild dependent atelectasis in bilateral lower lobes of the lungs. No significant pulmonary nodule or mass is identified. There is no bronchiectasis or honeycombing. There is no ple ural effusion. There is no pneumothorax. The heart is enlarged. There are cardiac pacer wires. The t hyroid gland is grossly unremarkable. There is an aberrant right subclavian artery. There is no thor acic aortic aneurysm or dissection. There is no pulmonary arterial filling defect as far as the subse gmental level to suggest pulmonary embolism. No acute osseous abnormality is identified. There is ant erior plate and screw fixation of C6 and C7. IMPRESSION: No evidence of pulmonary embolism as far as the subsegmental level. No thoracic aortic aneurysm or di ssection. Cardiomegaly. Aberrant right subclavian artery.
[2024-12-06 22:39] VITALS: BP 129/79; PULSE 81; RESP 14
--- NOTE | 2024-12-11 06:20 | ECG ---
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
== END 2024-12-06 23:06 | disposition home or self-care (01) ==
LOC: ER 16:28
DX: S43.402A Unspecified sprain of left shoulder joint, initial encounter (principal); R55 Syncope and collapse; N28.9 Disorder of kidney and ureter, unspecified; F41.9 Anxiety disorder, unspecified; E78.5 Hyperlipidemia, unspecified; I50.9 Heart failure, unspecified; E11.65 Type 2 diabetes mellitus with hyperglycemia; Z79.52 Long term (current) use of systemic steroids; F32.A Depression, unspecified; Z79.899 Other long term (current) drug therapy; Z79.84 Long term (current) use of oral hypoglycemic drugs; Z95.0 Presence of cardiac pacemaker; Z91.048 Other nonmedicinal substance allergy status; Z79.891 Long term (current) use of opiate analgesic; W19.XXXA Unspecified fall, initial encounter; Y93.89 Activity, other specified; Y92.091 Bathroom in other non-institutional residence as the place of occurrence of the external cause; Y99.8 Other external cause status
CPT/HCPCS: 36415; 70450; 71045; 71275; 73030; 80053; 83735; 85025; 85379; 85610; 85730; 93005; 96360; 99285; J7030; Q9967

== ENCOUNTER 2024-12-11 07:44 | Outpatient (CLI) | payer OTHER ==
[2024-12-11 08:09] LABS: Hematocrit 43.0 % (36.0-46.0); Hemoglobin 14.9 g/dL (12.2-16.2); Mean Corpuscular Hemoglobin 33.7 pg (28.0-32.0); Mean Corpuscular Volume 97.1 fL (80.0-100.0); Nucleated Red Blood Cells % 0.1 %
[2024-12-11 08:16] LABS: Urine Protein, UAD Negative (Negative)
[2024-12-11 09:12] LABS: Alanine Aminotransferase 38 U/L (7-40); Albumin 4.2 g/dL (3.2-4.8); Alkaline Phosphatase 110 U/L (46-116); Anion Gap 9 (5-15); BUN/Creatinine Ratio 15.6 (10.0-20.0); Bilirubin, Total 0.5 mg/dL (0.2-1.0); Blood Urea Nitrogen 17 mg/dL (9-23); Calcium 9.4 mg/dL (8.7-10.4); Carbon Dioxide 28 mmol/L (20-31); Chloride 103 mmol/L (98-107); Cholesterol 121 mg/dL (< 200); Potassium 4.6 mmol/L (3.5-5.1); Sodium 140 mmol/L (136-145); Total Protein 7.4 g/dL (5.7-8.2)
[2024-12-11 09:14] LABS: Glucose 158 mg/dL (74-106); HDL Cholesterol 36 mg/dL (40-59); Triglycerides 190 mg/dL (< 150)
[2024-12-11 10:00] LABS: Uric Acid 3.8 mg/dL (3.1-7.8)
== END 2024-12-11 17:00 | disposition home or self-care (01) ==
LOC: LAB 07:44
PROVIDERS: ATTEND Internal Medicine
DX: E78.49 Other hyperlipidemia (principal); E61.2 Magnesium deficiency; E79.0 Hyperuricemia without signs of inflammatory arthritis and tophaceous disease; E55.9 Vitamin D deficiency, unspecified; D51.9 Vitamin B12 deficiency anemia, unspecified; R82.79 Other abnormal findings on microbiological examination of urine; R82.90 Unspecified abnormal findings in urine; R82.998 Other abnormal findings in urine; R94.6 Abnormal results of thyroid function studies; R68.89 Other general symptoms and signs; R73.09 Other abnormal glucose
CPT/HCPCS: 36415; 80053; 80061; 81001; 82607; 82746; 83036; 84443; 84550; 85025; 87086

== ENCOUNTER 2025-01-26 14:52 | Outpatient (CLI) | payer OTHER ==
[2025-01-26] MEDS ORDERED: ALBUTEROL SULF 2.5 MG/0.5ML(0.5%) NEB SOLN ONE (14:58)
== END 2025-01-26 17:00 | disposition home or self-care (01) ==
LOC: RT 14:52
PROVIDERS: ATTEND Internal Medicine Pulmonary Disease
DX: R06.9 Unspecified abnormalities of breathing (principal); R06.00 Dyspnea, unspecified
CPT/HCPCS: 94060; 94618; 94727; 94729